=== PATIENT | male | born 1950 | race African-American/Black ===

== ENCOUNTER 2016-06-10 19:25 | Inpatient (IN) | payer MEDICAID ==
[~2016-06-10] VITALS: Ht 182.9 cm; Wt 81.6 kg
[~2016-06-10 19:25] MED LIST: UNOBMED
[2016-06-10] MEDS ORDERED: Ipratropium 0.02% Inh Soln 2.5ml UD HHN ONE (21:00)
[2016-06-10] MEDS ORDERED: PredniSONE 20mg tab ORAL ONE (21:00)
[2016-06-10] MEDS ORDERED: Albuterol ud Inhalation HHN ONE ×2 (21:00→23:15)
[2016-06-10] MEDS ORDERED: Cefepime 1gm vial ONE (21:23)
[2016-06-10 21:54] LABS: TROPONIN I < 0.30 ng/mL (<=0.30)
[2016-06-10 21:55] LABS: BASOPHILS % (AUTO) 2.1 % (0.0-2.0); EOSINOPHILS % (AUTO) 0.3 % (0.0-3.0); LYMPHOCYTES % (AUTO) 10.9 % (20.0-45.0); MEAN CORPUSCULAR HEMOGLOBIN 28.6 PG (27.0-31.0); MEAN CORPUSCULAR HGB CONC 30.5 G/DL (32.0-36.0); MEAN CORPUSCULAR VOLUME 94 FL (80-99); MEAN PLATELET VOLUME 7.8 FL (6.5-10.1); MONOCYTES % (AUTO) 9.5 % (1.0-10.0); NEUTROPHILS % (AUTO) 77.2 % (45.0-75.0); PLATELET COUNT 234 K/UL (150-450); RED BLOOD COUNT 4.83 M/UL (4.70-6.10); RED CELL DISTRIBUTION WIDTH 15.1 % (11.6-14.8)
[2016-06-10 22:09] LABS: ALANINE AMINOTRANSFERASE 18 U/L (3-41); ALBUMIN/GLOBULIN RATIO 0.9 (1.0-2.7); ANION GAP 13 (5-15); ASPARTATE AMINO TRANSFERASE 25 U/L (5-40); CALCIUM 9.4 mg/dL (8.6-10.2); CARBON DIOXIDE 29 mEQ/L (20-30); CHLORIDE 102 mEQ/L (98-107); CREATININE 1.3 mg/dL (0.7-1.2); GLOMERULAR FILTRATION RATE > 60 mL/min (>60); HEMOLYSIS 8; POTASSIUM 4.7 mEQ/L (3.4-4.9); SODIUM 144 mEQ/L (135-145); TOTAL PROTEIN 7.2 g/dL (6.6-8.7)
[2016-06-10 22:13] LABS: REFLEX LACTIC ACID YES OR NO YES
[2016-06-10 22:19] LABS: CKMB 2.3 ng/mL (< 6.7)
[2016-06-10 22:30] LABS: BILIRUBIN,DIRECT 1.1 mg/dL (0.1-0.3)
--- NOTE | 2016-06-10 22:59 | Emergency Room Report ---
History of Present Illness General Chief Complaint: Upper Respiratory Illness Source: Patient, EMS Present Illness HPI Patient has a history of COPD and CHF. He presents by EMS complaining of shortness of breath for the past day. He has had cough. He denies chest pain. He denies fever. He states he has chills. Denies abdominal pain. He has no other complaints. Allergies: Coded Allergies: No Known Allergies (Unverified , 09/20/15) Patient History Past Medical History: see triage record, DM, HTN, [place], CAD, CHF, COPD Social History: Denies: alcohol use, drug use, smoking Reviewed Nursing Documentation: PMH: Agreed, PSxH: Agreed Nursing Documentation-PMH Past Medical History: No History, Except For Hx Cardiac Problems: Yes - CHF Hx Hypertension: Yes Hx Pacemaker: No Hx Asthma: Yes Hx COPD: Yes Hx Diabetes: Yes Hx Cancer: No Hx Gastrointestinal Problems: No Hx Dialysis: No Hx Neurological Problems: No Hx Cerebrovascular Accident: No Hx Seizures: No Review of Systems All Other Systems: negative except mentioned in HPI Physical Exam Vital Signs Date Time Temp Pulse Resp B/P Pulse Ox O2 Delivery O2 Flow Rate FiO2 06/10/16 19:23 102.9 108 18 129/95 100 Non-Rebreather 15.0 06/10/16 21:10 100 Sp02 EP Interpretation: reviewed, normal General Appearance: no apparent distress, alert, GCS 15, non-toxic Head: normocephalic, atraumatic Eyes: bilateral eye PERRL, bilateral eye normal inspection ENT: hearing grossly normal, normal pharynx, no angioedema, normal voice Neck: full range of motion, supple/symm/no masses Respiratory: chest non-tender, wheezing, expiration Cardiovascular #1: regular rate, rhythm, no edema Gastrointestinal: normal bowel sounds, non tender, soft, non-distended, no guarding, no rebound Rectal: deferred Musculoskeletal: back normal, gait/station normal, normal range of motion, non- tender Neurologic: alert, oriented x3, responsive, motor strength/tone normal, sensory intact, speech normal Psychiatric: judgement/insight normal, memory normal, mood/affect normal, no suicidal/homicidal ideation Skin: normal color, no rash, warm/dry, well hydrated Medical Decision Making Diagnostic Impression: Primary Impression: Asthma exacerbation in COPD Additional Impressions: Fever Pneumonia ER Course This patient has severe COPD exacerbation. This patient is complicated he also has a history of congestive heart failure. Chest x-ray does not show pulmonary edema. Therefore, went down the COPD pathway. The patient was treated with albuterol and Atrovent nebulizers and prednisone. He is also given broad- spectrum antibiotics given a fever of 103. Patient was requiring oxygen. He is admitted to telemetry. Labs Test 06/10/16 21:09 06/10/16 21:45 06/10/16 22:30 Sodium Level 144 mEQ/L (135-145) Potassium Level 4.7 mEQ/L (3.4-4.9) Chloride Level 102 mEQ/L (98-107) Carbon Dioxide Level 29 mEQ/L (20-30) Anion Gap 13 (5-15) Blood Urea Nitrogen 33 mg/dL (7-23) Creatinine 1.3 mg/dL (0.7-1.2) Estimat Glomerular Filtration Rate > 60 mL/min (>60) Glucose Level 233 mg/dL (74-106) Calcium Level 9.4 mg/dL (8.6-10.2) Total Bilirubin 1.9 mg/dL (0.0-1.2) Direct Bilirubin 1.1 mg/dL (0.1-0.3) Aspartate Amino Transf (AST/SGOT) 25 U/L (5-40) Alanine Aminotransferase (ALT/SGPT) 18 U/L (3-41) Alkaline Phosphatase 275 U/L (40-129) Total Creatine Kinase 116 U/L (38-174) Creatine Kinase MB 2.3 ng/mL (< 6.7) Creatine Kinase MB Relative Index 1.9 Troponin I < 0.30 ng/mL (<=0.30) Total Protein 7.2 g/dL (6.6-8.7) Albumin 3.5 g/dL (3.5-5.2) Globulin 3.7 g/dL Albumin/Globulin Ratio 0.9 (1.0-2.7) White Blood Count 10.0 K/UL (4.8-10.8) Red Blood Count 4.83 M/UL (4.70-6.10) Hemoglobin 13.8 G/DL (14.2-18.0) Hematocrit 45.3 % (42.0-52.0) Mean Corpuscular Volume 94 FL (80-99) Mean Corpuscular Hemoglobin 28.6 PG (27.0-31.0) Mean Corpuscular Hemoglobin Concent 30.5 G/DL (32.0-36.0) Red Cell Distribution Width 15.1 % (11.6-14.8) Platelet Count 234 K/UL (150-450) Mean Platelet Volume 7.8 FL (6.5-10.1) Neutrophils (%) (Auto) 77.2 % (45.0-75.0) Lymphocytes (%) (Auto) 10.9 % (20.0-45.0) Monocytes (%) (Auto) 9.5 % (1.0-10.0) Eosinophils (%) (Auto) 0.3 % (0.0-3.0) Basophils (%) (Auto) 2.1 % (0.0-2.0) Lactic Acid Level 3.00 mmol/L (0.66-2.22) EKG Diagnostic Results Rate: normal Rhythm: NSR ST Segments: no acute changes Rhythm Strip Diag. Results EP Interpretation: yes Rate: 90's Rhythm: NSR, no PVC's, no ectopy Chest X-Ray Diagnostic Results EP Interpretation: Yes Findings: no consolidation, no effusion, no pneumothorax, no acute cardiopulmonary disease Number of Views: 1 Other Impression Cardiomegaly Last Vital Signs Date Time Temp Pulse Resp B/P Pulse Ox O2 Delivery O2 Flow Rate FiO2 06/10/16 21:22 113 21 100 Non-Rebreather 15.0 100 06/10/16 19:23 102.9 129/95 Disposition: ADMITTED INPATIENT Condition: Serious Referrals: [facility],REFERRING (PCP) NESTOR MAZARIEGOS D.O. Jun 10, 2016 22:59
[2016-06-10] MEDS ORDERED: Acetaminophen 500mg (ES) tab ORAL ONE (23:00)
[2016-06-10 23:15] VITALS: BP 156/113
[2016-06-10] MEDS ORDERED: Morphine Sulfate 2mg/ml Inj IVP PRN (23:15)
[2016-06-10] MEDS ORDERED: Nitroglycerin Subl 0.4mg tab (Bottle Of 25) SL PRN (23:15)
[2016-06-10] MEDS ORDERED: LORazepam Inj 2mg/ml 1ml IV PRN (23:15)
[2016-06-10] MEDS ORDERED: DuoNeb 0.5-3(2.5)mg/3ml neb HHN PRN (23:15)
[2016-06-10] MEDS ORDERED: Promethazine/Codeine 5ml UD ORAL PRN (23:15)
[2016-06-11 00:49] VITALS: BP 143/90
[2016-06-11] MEDS: Solu-MEDROL 125mg Inj IV SCH ×4 (01:11→17:48)
[2016-06-11 04:00] VITALS: BP 152/106
[2016-06-11] MEDS ORDERED: Labetalol 5mg/ml 20ml vial IV PRN (06:30)
[2016-06-11] MEDS ORDERED: NovoLOG Insulin Flexpen SUBQ SCH ×2 (06:30)
[2016-06-11] MEDS ORDERED: Enalaprilat 2.5mg/2ml Inj IV PRN ×2 (06:30→12:00)
[2016-06-11] MEDS: NovoLOG Insulin Flexpen SUBQ SCH ×4 (07:09→20:38)
[2016-06-11 08:00] VITALS: BP 134/101
[2016-06-11] MEDS ORDERED: Theophylline ER 100mg ORAL SCH (09:00)
[2016-06-11] MEDS: Heparin 5000 units/ml inj SUBQ SCH ×2 (09:37→20:36)
--- NOTE | 2016-06-11 09:43 | Diagnostic Imaging Report ---
Indications: Shortness of breath Technique: Portable AP chest Findings: Comparison: 11/22/15 Cardiac silhouette remains enlarged. Hazy opacity now noted in the/over right lung base, obscuring right costophrenic angle and portion of right hemidiaphragm. Left lung and pleura clear. Pulmonary vasculature within normal limits. IMPRESSION: Right basal opacity--atelectasis versus pneumonia with or without pleural effusion. Upright PA and lateral chest radiographs with better inspiratory effort and optimal technique recommended for more complete evaluation.. Stable cardiomegaly
--- NOTE | 2016-06-11 09:49 | History and Physical ---
History of Present Illness General Date patient seen: Jun 10, 2016 Reason for Hospitalization: Upper Respiratory Illness Present Illness HPI 66 year old male with hx of COPD and CHF, EF of 35% and pulmonary htn ( previous echo). He presents by EMS complaining of shortness of breath for the past day. He has had cough. He denies chest pain. He denies fever. He states he has chills. Denies abdominal pain. He has no other complaints. Allergies: Coded Allergies: No Known Allergies (Unverified , 09/20/15) Medication History Miscellaneous Medications Unable to Obtain Medications (Unable To Obtain Meds), Unknown Dose, (Reported) Patient History History Provided By: Patient Healthcare decision maker Resuscitation status Full Code Advanced Directive on File No Past Medical/Surgical History Past Medical/Surgical History: (1) Uncontrolled diabetes mellitus (2) Chronic kidney disease (3) Cocaine abuse Social History Social History: (1) Cocaine abuse Review of Systems All Other Systems: negative except mentioned in HPI Physical Exam General Appearance: WD/WN Lines, tubes and drains: peripheral HEENT: normocephalic, atraumatic Neck: non-tender, normal alignment Respiratory/Chest: chest wall non-tender, lungs clear Abdomen: normal bowel sounds, non tender Genitourinary/Rectal: normal genital exam Extremities: normal range of motion Skin Exam: cyanotic Last 24 Hour Vital Signs Date Time Temp Pulse Resp B/P Pulse Ox O2 Delivery O2 Flow Rate FiO2 06/11/16 07:53 101 19 Room Air 98 06/11/16 04:00 98.0 92 20 152/106 96 Nasal Cannula 3.0 06/11/16 04:00 97 06/11/16 00:49 97.4 95 28 143/90 100 Room Air 06/11/16 00:02 98.2 99 23 156/113 100 Nasal Cannula 3.0 32 06/11/16 00:00 97 06/10/16 23:30 32 06/10/16 23:30 101 23 100 Nasal Cannula 3.0 32 06/10/16 23:15 98.2 99 24 156/113 100 Nasal Cannula 3.0 06/10/16 22:05 113 21 Room Air 15.0 100 06/10/16 21:45 100.1 06/10/16 21:22 113 21 100 Non-Rebreather 15.0 100 06/10/16 21:10 110 20 100 Non-Rebreather 15.0 100 06/10/16 21:10 108 20 Non-Rebreather 15.0 100 06/10/16 21:10 100 06/10/16 19:23 102.9 108 18 129/95 100 Non-Rebreather 15.0 Laboratory Tests Test 06/10/16 21:09 06/10/16 21:45 06/10/16 22:30 Sodium Level 144 mEQ/L (135-145) Potassium Level 4.7 mEQ/L (3.4-4.9) Chloride Level 102 mEQ/L (98-107) Carbon Dioxide Level 29 mEQ/L (20-30) Anion Gap 13 (5-15) Blood Urea Nitrogen 33 mg/dL (7-23) H Creatinine 1.3 mg/dL (0.7-1.2) H Estimat Glomerular Filtration Rate > 60 mL/min (>60) Glucose Level 233 mg/dL (74-106) H Calcium Level 9.4 mg/dL (8.6-10.2) Total Bilirubin 1.9 mg/dL (0.0-1.2) H Direct Bilirubin 1.1 mg/dL (0.1-0.3) H Aspartate Amino Transf (AST/SGOT) 25 U/L (5-40) Alanine Aminotransferase (ALT/SGPT) 18 U/L (3-41) Alkaline Phosphatase 275 U/L (40-129) H Total Creatine Kinase 116 U/L (38-174) Creatine Kinase MB 2.3 ng/mL (< 6.7) Creatine Kinase MB Relative Index 1.9 Troponin I < 0.30 ng/mL (<=0.30) Total Protein 7.2 g/dL (6.6-8.7) Albumin 3.5 g/dL (3.5-5.2) Globulin 3.7 g/dL Albumin/Globulin Ratio 0.9 (1.0-2.7) L White Blood Count 10.0 K/UL (4.8-10.8) Red Blood Count 4.83 M/UL (4.70-6.10) Hemoglobin 13.8 G/DL (14.2-18.0) L Hematocrit 45.3 % (42.0-52.0) Mean Corpuscular Volume 94 FL (80-99) Mean Corpuscular Hemoglobin 28.6 PG (27.0-31.0) Mean Corpuscular Hemoglobin Concent 30.5 G/DL (32.0-36.0) L Red Cell Distribution Width 15.1 % (11.6-14.8) H Platelet Count 234 K/UL (150-450) Mean Platelet Volume 7.8 FL (6.5-10.1) Neutrophils (%) (Auto) 77.2 % (45.0-75.0) H Lymphocytes (%) (Auto) 10.9 % (20.0-45.0) L Monocytes (%) (Auto) 9.5 % (1.0-10.0) Eosinophils (%) (Auto) 0.3 % (0.0-3.0) Basophils (%) (Auto) 2.1 % (0.0-2.0) H Lactic Acid Level 3.00 mmol/L (0.66-2.22) H 2.70 mmol/L (0.66-2.22) H Height (Feet): 6 Height (Inches): 1.00 Weight (Pounds): 180 Medications Current Medications Medications (Trade) Dose Ordered Sig/Morteza Route PRN Reason Start Time Stop Time Status Last Admin Dose Admin Acetaminophen (Tylenol) 650 mg Q4H PRN ORAL fever 06/10/16 23:15 07/10/16 23:14 Albuterol/ Ipratropium (DuoNeb 0.5-3(2.5)mg/3ml) 3 ml Q4H PRN HHN dyspnea 06/10/16 23:15 06/15/16 23:14 Clonidine HCl (Catapres) 0.1 mg Q4H PRN ORAL sbp more than 160 06/10/16 23:15 07/10/16 23:14 Dextrose (Dextrose 50%) STAT PRN IV Hypoglycemia 06/11/16 06:30 07/11/16 06:29 Enalaprilat (Vasotec) 2.5 mg Q4H PRN IV sbp more than 200 06/11/16 06:30 07/11/16 06:29 Heparin Sodium (Porcine) (Heparin 5000 units/ml) 5,000 units EVERY 12 HOURS SUBQ 06/11/16 09:00 07/11/16 08:59 06/11/16 09:37 Hydralazine HCl (Apresoline) 20 mg Q4H PRN IV sbp more than 160 06/11/16 06:30 07/11/16 06:29 Insulin Aspart (NovoLOG) BEFORE MEALS AND HS SUBQ 06/11/16 07:30 07/11/16 07:29 06/11/16 07:09 Labetalol HCl (Normodyne) 20 mg Q1H PRN IV sbo more than 180 06/11/16 06:30 07/11/16 06:29 Lorazepam (Ativan 2mg/ml 1ml) 0.5 mg Q4H PRN IV For Anxiety 06/10/16 23:15 06/17/16 23:14 Methylprednisolone Sodium Succinate (Solu-MEDROL) 60 mg EVERY 6 HOURS IV 06/11/16 00:00 07/11/16 00:00 06/11/16 06:00 Morphine Sulfate (Morphine Sulfate) 2 mg Q4H PRN IVP severe pain 7-10 06/10/16 23:15 06/17/16 23:14 Nitroglycerin (Ntg) 0.4 mg Q5M X 3 DOSES PRN SL Prn Chest Pain 06/10/16 23:15 07/10/16 23:14 Ondansetron HCl (Zofran) 4 mg Q6H PRN IVP Nausea & Vomiting 06/10/16 23:15 07/10/16 23:14 Promethazine HCl/ Codeine (Phenergan with Codeine) 5 ml Q6H PRN ORAL cough 06/10/16 23:15 07/10/16 23:14 Temazepam (Restoril) 15 mg HSPRN PRN ORAL Insomnia 06/10/16 23:15 06/17/16 23:14 Theophylline (Jose-Dur) 100 mg EVERY 12 HOURS ORAL 06/11/16 09:00 07/11/16 08:59 UNV Assessment/Plan Problem List: (1) Asthma exacerbation in COPD ICD Codes: J44.1 - Chronic obstructive pulmonary disease with (acute) exacerbation; J45.901 - Unspecified asthma with (acute) exacerbation SNOMED: 240655666 (2) Severe systolic congestive heart failure ICD Codes: I50.20 - Unspecified systolic (congestive) heart failure SNOMED: 27882063, 901675189 (3) Pulmonary hypertension ICD Codes: I27.2 - Other secondary pulmonary hypertension SNOMED: 65950572 (4) Cocaine abuse ICD Codes: F14.10 - Cocaine abuse, uncomplicated SNOMED: 05621278 (5) Chronic kidney disease ICD Codes: N18.9 - Chronic kidney disease, unspecified SNOMED: 355389652 Assessment/Plan respiratory treatment Iv antibiotics IV steroids check sputum chest PT cardio evaluation KENY JIMÉNEZ Jun 11, 2016 09:49
--- NOTE | 2016-06-11 10:05 | Pulmonology Progress Note ---
Assessment/Plan Problems: (1) Asthma exacerbation in COPD (2) Severe systolic congestive heart failure (3) Pulmonary hypertension (4) Cocaine abuse (5) Chronic kidney disease Assessment/Plan respiratory treatment Iv antibiotics IV steroids check sputum chest PT cardio evaluation requested might go to med/surg Subjective ROS Limited/Unobtainable: No Interval Events: still short of breath Allergies: Coded Allergies: No Known Allergies (Unverified , 09/20/15) Objective Last 24 Hour Vital Signs Date Time Temp Pulse Resp B/P Pulse Ox O2 Delivery O2 Flow Rate FiO2 06/11/16 07:53 101 19 Room Air 98 06/11/16 04:00 98.0 92 20 152/106 96 Nasal Cannula 3.0 06/11/16 04:00 97 06/11/16 00:49 97.4 95 28 143/90 100 Room Air 06/11/16 00:02 98.2 99 23 156/113 100 Nasal Cannula 3.0 32 06/11/16 00:00 97 06/10/16 23:30 32 06/10/16 23:30 101 23 100 Nasal Cannula 3.0 32 06/10/16 23:15 98.2 99 24 156/113 100 Nasal Cannula 3.0 06/10/16 22:05 113 21 Room Air 15.0 100 06/10/16 21:45 100.1 06/10/16 21:22 113 21 100 Non-Rebreather 15.0 100 06/10/16 21:10 110 20 100 Non-Rebreather 15.0 100 06/10/16 21:10 108 20 Non-Rebreather 15.0 100 06/10/16 21:10 100 06/10/16 19:23 102.9 108 18 129/95 100 Non-Rebreather 15.0 General Appearance: WD/WN HEENT: normocephalic, atraumatic Respiratory/Chest: chest wall non-tender, lungs clear Cardiovascular: normal peripheral pulses, normal rate Abdomen: normal bowel sounds, soft, non tender Genitourinary: normal external genitalia Skin: no rash, no ulcers 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 Lymphatic: no neck adenopathy Laboratory Tests 06/10/16 21:09: Sodium Level 144, Potassium Level 4.7, Chloride Level 102, Carbon Dioxide Level 29, Anion Gap 13, Blood Urea Nitrogen 33H, Creatinine 1.3H, Estimat Glomerular Filtration Rate > 60, Glucose Level 233H, Calcium Level 9.4, Total Bilirubin 1.9H, Direct Bilirubin 1.1H, Aspartate Amino Transf (AST/SGOT) 25, Alanine Aminotransferase (ALT/SGPT) 18, Alkaline Phosphatase 275H, Total Creatine Kinase 116, Creatine Kinase MB 2.3, Creatine Kinase MB Relative Index 1.9, Troponin I < 0.30, Total Protein 7.2, Albumin 3.5, Globulin 3.7, Albumin/ Globulin Ratio 0.9L 06/10/16 21:45: White Blood Count 10.0, Red Blood Count 4.83, Hemoglobin 13.8L, Hematocrit 45.3 , Mean Corpuscular Volume 94, Mean Corpuscular Hemoglobin 28.6, Mean Corpuscular Hemoglobin Concent 30.5L, Red Cell Distribution Width 15.1H, Platelet Count 234, Mean Platelet Volume 7.8, Neutrophils (%) (Auto) 77.2H, Lymphocytes (%) (Auto) 10.9L, Monocytes (%) (Auto) 9.5, Eosinophils (%) (Auto) 0.3, Basophils (%) (Auto) 2.1H, Lactic Acid Level 3.00H 06/10/16 22:30: Lactic Acid Level 2.70H Current Medications Medications (Trade) Dose Ordered Sig/Morteza Route PRN Reason Start Time Stop Time Status Last Admin Dose Admin Acetaminophen (Tylenol) 650 mg Q4H PRN ORAL fever 06/10/16 23:15 07/10/16 23:14 Albuterol/ Ipratropium (DuoNeb 0.5-3(2.5)mg/3ml) 3 ml Q4H PRN HHN dyspnea 06/10/16 23:15 06/15/16 23:14 Clonidine HCl (Catapres) 0.1 mg Q4H PRN ORAL sbp more than 160 06/10/16 23:15 07/10/16 23:14 Dextrose (Dextrose 50%) STAT PRN IV Hypoglycemia 06/11/16 06:30 07/11/16 06:29 Enalaprilat (Vasotec) 2.5 mg Q4H PRN IV sbp more than 200 06/11/16 06:30 07/11/16 06:29 Heparin Sodium (Porcine) (Heparin 5000 units/ml) 5,000 units EVERY 12 HOURS SUBQ 06/11/16 09:00 07/11/16 08:59 06/11/16 09:37 Hydralazine HCl (Apresoline) 20 mg Q4H PRN IV sbp more than 160 06/11/16 06:30 07/11/16 06:29 Insulin Aspart (NovoLOG) BEFORE MEALS AND HS SUBQ 06/11/16 07:30 07/11/16 07:29 06/11/16 07:09 Labetalol HCl (Normodyne) 20 mg Q1H PRN IV sbo more than 180 06/11/16 06:30 07/11/16 06:29 Lorazepam (Ativan 2mg/ml 1ml) 0.5 mg Q4H PRN IV For Anxiety 06/10/16 23:15 06/17/16 23:14 Methylprednisolone Sodium Succinate (Solu-MEDROL) 60 mg EVERY 6 HOURS IV 06/11/16 00:00 07/11/16 00:00 06/11/16 06:00 Morphine Sulfate (Morphine Sulfate) 2 mg Q4H PRN IVP severe pain 7-10 06/10/16 23:15 06/17/16 23:14 Nitroglycerin (Ntg) 0.4 mg Q5M X 3 DOSES PRN SL Prn Chest Pain 06/10/16 23:15 07/10/16 23:14 Ondansetron HCl (Zofran) 4 mg Q6H PRN IVP Nausea & Vomiting 06/10/16 23:15 07/10/16 23:14 Promethazine HCl/ Codeine (Phenergan with Codeine) 5 ml Q6H PRN ORAL cough 06/10/16 23:15 07/10/16 23:14 Temazepam (Restoril) 15 mg HSPRN PRN ORAL Insomnia 06/10/16 23:15 06/17/16 23:14 Theophylline (Jose-Dur) 100 mg EVERY 12 HOURS ORAL 06/11/16 09:00 07/11/16 08:59 KENY DE JESUS Jun 11, 2016 10:05
[2016-06-11 12:00] VITALS: BP 161/120
[2016-06-11] MEDS: Theophylline ER 100mg ORAL SCH (13:28)
--- NOTE | 2016-06-11 14:42 | Consultation ---
Consult Note Consult Note ID CONSULT: Elissa# [id number] Assessment/Plan ASSESSMENT: 66 y/o male with: // COPD exacerbation r/o PNA - SCx pending - CXR 06/10: Right basal opacity--atelectasis versus pneumonia with or without pleural effusion. // Lactic acidosis - improved // Fever - improved, no leukocytosis, cultures pending ( on steroids ) // Isolated indirect hyperbilirubinemia // ICMO - trop(-) x1 - TTE 11/2015: EF 30-35%, grade 3 diastolic dysfunction, mild AR, mod TR, sev MR, pulmonary HTN // DM2 - HbA1c 14.8% ( 11/2015 ) // CKD3 // Negative MRSA, VRE screens // NKDA // Full Code PLAN: - resume empiric cefepime d# 1 - check influenza - taper steroids per pulm - f/u cultures - monitor CBC, temperatures - monitor BMP - monitor CXR Thanks! Will follow BELEM SLOAN Jun 11, 2016 14:42
--- NOTE | 2016-06-11 15:56 | Cardiology Progress Note ---
Assessment/Plan Assessment/Plan acute systolic heart failure copd MR pulm htn systemic htn non compliance with med renal insuf diuretics incease hasmukh i copd med trop adn bnp and ekg echo noted to review watch on sdu [id number] Objective Last 24 Hour Vital Signs Date Time Temp Pulse Resp B/P Pulse Ox O2 Delivery O2 Flow Rate FiO2 06/11/16 12:33 65 24 98 Nasal Cannula 3.0 32 06/11/16 12:33 32 06/11/16 12:33 64 18 98 Nasal Cannula 3.0 32 06/11/16 12:00 97.0 103 22 161/120 91 Nasal Cannula 3.0 06/11/16 12:00 104 06/11/16 08:00 108 06/11/16 08:00 97.0 101 25 134/101 98 Room Air 06/11/16 07:53 101 19 Room Air 98 06/11/16 04:00 98.0 92 20 152/106 96 Nasal Cannula 3.0 06/11/16 04:00 97 06/11/16 00:49 97.4 95 28 143/90 100 Room Air 06/11/16 00:02 98.2 99 23 156/113 100 Nasal Cannula 3.0 32 06/11/16 00:00 97 06/10/16 23:30 32 06/10/16 23:30 101 23 100 Nasal Cannula 3.0 32 06/10/16 23:15 98.2 99 24 156/113 100 Nasal Cannula 3.0 06/10/16 22:05 113 21 Room Air 15.0 100 06/10/16 21:45 100.1 06/10/16 21:22 113 21 100 Non-Rebreather 15.0 100 06/10/16 21:10 110 20 100 Non-Rebreather 15.0 100 06/10/16 21:10 108 20 Non-Rebreather 15.0 100 06/10/16 21:10 100 06/10/16 19:23 102.9 108 18 129/95 100 Non-Rebreather 15.0 Intake and Output 06/10/16 06/11/16 19:00 07:00 # Voids 2 Laboratory Tests Test 06/10/16 21:09 06/10/16 21:45 06/10/16 22:30 Sodium Level 144 mEQ/L (135-145) Potassium Level 4.7 mEQ/L (3.4-4.9) Chloride Level 102 mEQ/L (98-107) Carbon Dioxide Level 29 mEQ/L (20-30) Anion Gap 13 (5-15) Blood Urea Nitrogen 33 mg/dL (7-23) H Creatinine 1.3 mg/dL (0.7-1.2) H Estimat Glomerular Filtration Rate > 60 mL/min (>60) Glucose Level 233 mg/dL (74-106) H Calcium Level 9.4 mg/dL (8.6-10.2) Total Bilirubin 1.9 mg/dL (0.0-1.2) H Direct Bilirubin 1.1 mg/dL (0.1-0.3) H Aspartate Amino Transf (AST/SGOT) 25 U/L (5-40) Alanine Aminotransferase (ALT/SGPT) 18 U/L (3-41) Alkaline Phosphatase 275 U/L (40-129) H Total Creatine Kinase 116 U/L (38-174) Creatine Kinase MB 2.3 ng/mL (< 6.7) Creatine Kinase MB Relative Index 1.9 Troponin I < 0.30 ng/mL (<=0.30) Total Protein 7.2 g/dL (6.6-8.7) Albumin 3.5 g/dL (3.5-5.2) Globulin 3.7 g/dL Albumin/Globulin Ratio 0.9 (1.0-2.7) L White Blood Count 10.0 K/UL (4.8-10.8) Red Blood Count 4.83 M/UL (4.70-6.10) Hemoglobin 13.8 G/DL (14.2-18.0) L Hematocrit 45.3 % (42.0-52.0) Mean Corpuscular Volume 94 FL (80-99) Mean Corpuscular Hemoglobin 28.6 PG (27.0-31.0) Mean Corpuscular Hemoglobin Concent 30.5 G/DL (32.0-36.0) L Red Cell Distribution Width 15.1 % (11.6-14.8) H Platelet Count 234 K/UL (150-450) Mean Platelet Volume 7.8 FL (6.5-10.1) Neutrophils (%) (Auto) 77.2 % (45.0-75.0) H Lymphocytes (%) (Auto) 10.9 % (20.0-45.0) L Monocytes (%) (Auto) 9.5 % (1.0-10.0) Eosinophils (%) (Auto) 0.3 % (0.0-3.0) Basophils (%) (Auto) 2.1 % (0.0-2.0) H Lactic Acid Level 3.00 mmol/L (0.66-2.22) H 2.70 mmol/L (0.66-2.22) H JULIOCESAR GONSALEZ Jun 11, 2016 15:56
[2016-06-11 16:00] VITALS: BP 159/119
[2016-06-11 17:32] LABS: ABG BASE EXCESS -4.2; ABG PCO2 39.9 mmHg (35.0-45.0)
[2016-06-11 17:33] LABS: ABG ALLEN TEST POSITIVE
--- NOTE | 2016-06-11 17:33 | Cardiology Report ---
APPROVED REPORT EXAM: Two-dimensional and M-mode echocardiogram with Doppler and color Doppler. INDICATION Left ventricular function M-Mode DIMENSIONS LVDd6.4 (3.5-5.6cm) PWd1.1 (0.7-1.1cm) IVSs0.9 cm LVDs4.9 (2.5-4.0cm) PWs1.7 cm Mild left ventricular enlargement. Severe global left ventricular hypokinesis. Worse in basal posterior and mid inferior. Left ventricular ejection fraction estimated to be less than 25%. No evidence of left ventricular hypertrophy. Large posterior pleural effusion. Moderate anterior pericardial effusion. Mild bi-atrial and right ventricular enlargement by 2D. Focal aortic valve sclerosis with adequate cusp excursion Mildly thickened mitral valve leaflets with normal excursion. Mitral annulus and aortic root calcification. Pulmonic valve is well visualized. Normal tricuspid valve structure. IVC dilated at 3.1cm with no physiologic collapse. RA pressure of 20mmHg. A color flow and spectral Doppler study was performed and revealed: Mild aortic regurgitation. Severe mitral regurgitation. Left ventricular diastolic dysfunction not obtainable due to A-FIB. Moderate to moderte tricuspid regurgitation. Tricuspid systolic velocities suggests peak right ventricular systolic pressure of 44 mmHg Consistent with mild pulmonary hypertension. Pulmonic regurgitation present.
--- NOTE | 2016-06-11 17:39 | Cardiology Report ---
APPROVED REPORT EKG Measurement Heart [id number] Normal sinus rhythm Possible Left atrial enlargement Left axis deviation Low voltage QRS Inferior infarct, age undetermined Cannot rule out Anterior infarct, age undetermined Abnormal ECG
[2016-06-11 20:00] VITALS: BP 143/110
--- NOTE | 2016-06-11 20:17 | Consultation ---
DATE OF CONSULTATION: 06/11/2016 INFECTIOUS DISEASE CONSULTATION REQUESTING PHYSICIAN: Ирина Thurston M.D. REASON FOR CONSULTATION: Fever. HISTORY OF PRESENT ILLNESS: This is a 66-year-old male with a history of COPD and ischemic cardiomyopathy and uncontrolled diabetes, admitted on 06/10/2016 with cough and shortness of breath. The patient reports coughing x2 weeks. Denies sick contacts or recent travel. Chest x-ray shows right basilar opacity and/or atelectasis versus pneumonia with or without pleural effusion. The patient unable to provide sputum sample. Evidence of fever at 102.9 degrees. No leukocytosis, but left shift. Lactic acidosis is improving. Troponin is negative x1. Blood cultures are pending. The patient has been started on Solu-Medrol. He also received cefepime in the emergency room. PAST MEDICAL HISTORY: 1. COPD. 2. Ischemic cardiomyopathy with ejection fraction of 30% to 35%. 3. Mild aortic regurgitation. 4. Moderate tricuspid regurgitation. 5. Severe mitral regurgitation. 6. Severe pulmonary hypertension. 7. Grade 3 diastolic dysfunction. 8. Chronic kidney disease, stage 3. 9. Hypertension. 10. Uncontrolled diabetes, hemoglobin A1c of 14.8%. MEDICATIONS: 1. Status post cefepime x1. 2. Solu-Medrol. 3. Lisinopril. 4. Theophylline. 5. Heparin. ALLERGIES: No known drug allergies. SOCIAL HISTORY: History of cocaine abuse and tobacco abuse. FAMILY HISTORY: Noncontributory. REVIEW OF SYSTEMS: As per history of present illness. Ten systems reviewed. All pertinent positives and negatives noted. PHYSICAL EXAMINATION: VITAL SIGNS: Maximum temperature 102.9 degrees, blood pressure 134/101, heart rate 101, respiratory rate 20, and saturating 98% on two liters nasal cannula. GENERAL: No apparent distress. Nontoxic appearing. PULMONARY: Coarse breath sounds bilaterally. CARDIOVASCULAR: Tachycardic. No murmurs. ABDOMEN: Bowel sounds present. Soft, nondistended, and nontender. EXTREMITIES: No edema. SKIN: No rash. NEUROLOGICAL: Alert and oriented x3. Nonfocal. LABORATORY AND DIAGNOSTIC DATA: White blood cell count 10 with left shift, hemoglobin 13.8, and platelets 234,000. Sodium 144, potassium 4.7, chloride 102, bicarbonate 29, BUN 33, and creatinine 1.3. Lactic acid 3 decreased to 2.7. AST 25, ALT 18 and alkaline phosphatase 375. Total bilirubin 1.9. Direct bilirubin 1.1. Albumin 3.5. Troponin negative x1. Microbiology, 1. On 06/10/2016, blood culture pending. 2. On 06/10/2016, sputum culture pending. Imaging, 3. On 06/10/2016, chest x-ray right basilar opacity atelectasis versus pneumonia with or without pleural effusion. 4. On 06/10/2016, echocardiogram pending. ASSESSMENT: 1. Chronic obstructive pulmonary disease exacerbation, rule out pneumonia. Sputum culture is pending. Chest x-ray, as above. 2. Lactic acidosis, improved. 3. Fever, improved and no leukocytosis. Cultures are pending. He is on steroids. 4. Isolated indirect hyperbilirubinemia. 5. Ischemic cardiomyopathy. Troponin negative x1. Most recent echocardiogram in 2016 showed an ejection fraction of 30% to 35%, grade 3 diastolic dysfunction, mild aortic regurgitation, moderate tricuspid regurgitation, severe mitral regurgitation and pulmonary hypertension. 6. Uncontrolled diabetes type 2 with a hemoglobin A1c of 14.8% in 2016. 7. Chronic kidney disease, stage 3. 8. Negative methicillin-resistant Staphylococcus aureus and vancomycin-resistant Enterococcus screens. 9. No known drug allergies. 10. Full Code. PLAN: 1. Resume empiric cefepime day #1. 2. Check influenza screen. 3. Taper steroids per Pulmonary. 4. Follow up cultures. 5. Monitor CBC and temperatures. 6. Monitor BMP. 7. Monitor chest x-ray. Thank you. We will follow. Stephen Back M.D. DR: PETE JOB#: [id number] CC: Jessi Sampson M.D. Arash Alborzi, M.D
[2016-06-11] MEDS: Lisinopril 20mg tab ORAL SCH (20:34)
--- NOTE | 2016-06-11 22:07 | Consultation ---
DATE OF CONSULTATION: 06/11/2016 CARDIAC CONSULTATION REFERRING PHYSICIAN: Ирина Thurston M.D. REASON FOR REFERRAL: Congestive heart failure. HISTORY OF PRESENT ILLNESS: This gentleman is a 66-year-old gentleman with history of multiple medical problems. He apparently presented to the hospital because of shortness of breath. [employer] [facility] Technician run sheet indicates the patient was at home being assessed, treated by paramedics for shortness of breath of 20 minutes. The patient was just discharged from the [facility] this morning, but was complaining of shortness of breath all day. It has been reported that he has not been compliant with his medication. O2 saturation on room air was only 86% and up to 100% by 15 liters of oxygen, and was noted to have bibasilar crackles, history of CHF, presented with edema according to the terra cotta setter run sheet. He was recently hospitalized and discharged here with COPD as well as acute on chronic congestive heart failure with cardiomyopathy, severe pulmonary hypertension, renal insufficiency diabetes mellitus, and possible cocaine use. The patient complains of shortness of breath and has to sleep in a sitting position. He does not have any PND. He does not does not have any dizziness or lightheadedness on standing. He denies absolutely any pain, pressure, tightness, heaviness in his chest and no palpitations. He denies any allergies to medications. SOCIAL HISTORY: He denies smoking, alcohol or drugs despite the fact that previously he has had cocaine positive drug screen. REVIEW OF SYSTEMS: Gastrointestinal: He complains of heartburn. Genitourinary: He denies. Pulmonary: He does have shortness of breath and coughing. Constitutional: He denies. Neurologic: He denies, although he becomes very difficult to question at that time. PHYSICAL EXAMINATION: GENERAL: The patient is an elderly gentleman and appears to be uneasy, cannot find a comfortable position, but he does move around. He appears short of breath. NECK: Supple. LUNGS: Decreased breath sounds are noted bilaterally with some crackles on the right side. CARDIAC: Regular rhythm. No heaves or thrills. ABDOMEN: Soft and nontender. Positive bowel sounds. EXTREMITIES: There is edema of the lower extremities. NEUROLOGIC: He is awake, alert, and responsive, but he appears somewhat confused. LABORATORY AND DIAGNOSTIC DATA: White count of 10, hemoglobin 13.8, and platelet count of 234,000. His sodium is 144, potassium 4.7, chloride 102, bicarbonate 29, BUN 32, creatinine 1.3 and a glucose of 233. Lactic acid of 3 and 2.7. Total bilirubin of 1.9. Troponin less than 0.1 on one occasion. His toxicology screen was previously positive back in November 2015 and has not been repeated. I am sure no EKGs are available for me to review. The telemetry data shows sinus rhythm and sinus tachycardia and an echocardiogram just been performed shows ejection fraction 20%-25%, severe global hypokinesis, severe mitral regurgitation, pulmonary systolic pressure of 44. Chest x-ray shows cardiomegaly, by the radiologist reading it appears to show a right basilar opacity atelectasis versus pneumonia with or without pleural effusion, stable cardiomegaly being documented. Chest x-ray was performed on November 2015, six months earlier and really does not look any significantly different. The BNP has not been drawn during this hospitalization yet. ASSESSMENT: 1. Chronic obstructive pulmonary disease. 2. History of congestive heart failure, acute systolic on chronic systolic heart failure. 3. Mitral regurgitation. 4. Pulmonary hypertension. PLAN: Dr. Thurston, this patient was seen in cardiac consultation. He appears to be short of breath on evaluation. I would consider checking a set of cardiac enzymes, again an EKG and a BNP and he should be on some medications for his heart failure. He is not reporting known to be noncompliant with medications. His blood pressure is anywhere between 134/101 to 161/120. He has been given some SINDI inhibitors, the dose of which would need to be increased and addition of other medications for blood pressure control is important. Beta-blockers may be an issue in light of his COPD and diuretics would be administered to help with the heart failure control as well and of course COPD treatment underlying as per yourself. Nolberto Aden M.D. DR: CARTER JOB#: [id number] CC:
[2016-06-12] VITALS: BP 143/110
[2016-06-12 01:00] VITALS: BP 131/99
[2016-06-12] MEDS: Solu-MEDROL 125mg Inj IV SCH ×4 (01:23→11:41)
[2016-06-12 04:00] VITALS: BP 135/95
[2016-06-12] MEDS: NovoLOG Insulin Flexpen SUBQ SCH ×2 (06:04→11:30)
[2016-06-12 08:00] VITALS: BP 121/67
[2016-06-12] MEDS ORDERED: Sodium Bicarbonate 8.4% 50ml Inj IV ONE (08:00)
[2016-06-12] MEDS ORDERED: Heparin 2000 units/Ns 1000ml INJ ONE (08:00)
[2016-06-12] MEDS ORDERED: Lidocaine 1% Plain 30 ml INJ ONE (08:00)
[2016-06-12] MEDS: Lisinopril 20mg tab ORAL SCH (08:57)
[2016-06-12] MEDS: Theophylline ER 100mg ORAL SCH (08:57)
[2016-06-12] MEDS: Heparin 5000 units/ml inj SUBQ SCH (08:57)
[2016-06-12] MEDS ORDERED: FUROSEMIDE40 MG ORAL (11:46)
--- NOTE | 2016-06-12 11:54 | Pulmonology Progress Note ---
Assessment/Plan Problems: (1) Asthma exacerbation in COPD (2) Severe systolic congestive heart failure (3) Pulmonary hypertension (4) Cocaine abuse (5) Chronic kidney disease Assessment/Plan respiratory treatment Iv antibiotics IV steroids check sputum chest PT cardio evaluation requested might go to med/surg refusing all treatment will dc home with oral meds refusing to go to a assisted living Subjective ROS Limited/Unobtainable: No Interval Events: refusing all treatment Allergies: Coded Allergies: No Known Allergies (Unverified , 09/20/15) Objective Last 24 Hour Vital Signs Date Time Temp Pulse Resp B/P Pulse Ox O2 Delivery O2 Flow Rate FiO2 06/12/16 08:57 120/56 06/12/16 08:00 98.1 102 20 121/67 95 Room Air 06/12/16 08:00 100 06/12/16 04:00 98.4 101 24 135/95 94 Room Air 06/12/16 00:00 97.3 103 16 143/110 97 Nasal Cannula 2.0 06/12/16 00:00 104 06/11/16 21:32 103 19 Room Air 06/11/16 20:34 143/110 06/11/16 20:00 97.3 103 16 143/110 97 Nasal Cannula 2.0 06/11/16 20:00 104 06/11/16 16:00 104 06/11/16 16:00 96.8 105 16 159/119 98 Nasal Cannula 3.0 06/11/16 12:33 65 24 98 Nasal Cannula 3.0 32 06/11/16 12:33 32 06/11/16 12:33 64 18 98 Nasal Cannula 3.0 32 06/11/16 12:00 97.0 103 22 161/120 91 Nasal Cannula 3.0 06/11/16 12:00 104 Intake and Output 06/11/16 06/12/16 19:00 07:00 Intake Total 900 ml 280 ml Output Total 600 ml Balance 300 ml 280 ml Intake Oral 850 ml 280 ml IV Total 50 ml Output Urine Total 600 ml # Voids 4 # Bowel Movements 4 General Appearance: WD/WN HEENT: normocephalic Respiratory/Chest: chest wall non-tender, lungs clear Cardiovascular: normal peripheral pulses, regular rhythm Abdomen: normal bowel sounds, soft, non tender Neurologic/Psychiatric: osteopathy doctor II-XII grossly normal Laboratory Tests 06/11/16 17:20: Arterial Blood pH 7.342L, Arterial Blood Partial Pressure CO2 39.9, Arterial Blood Partial Pressure O2 37.2*L, Arterial Blood HCO3 21.1L, Arterial Blood Oxygen Saturation 63.2L, Arterial Blood Base Excess -4.2, Umesh Test Positive Current Medications Medications (Trade) Dose Ordered Sig/Morteza Route PRN Reason Start Time Stop Time Status Last Admin Dose Admin Acetaminophen (Tylenol) 650 mg Q4H PRN ORAL fever 06/10/16 23:15 07/10/16 23:14 Albuterol/ Ipratropium (DuoNeb 0.5-3(2.5)mg/3ml) 3 ml Q4H PRN HHN dyspnea 06/10/16 23:15 06/15/16 23:14 06/11/16 12:33 Cefepime HCl/ Dextrose (Maxipime/D5W 50ml) 50 ml @ 100 mls/hr Q12HR@0600,1800 IVPB 06/11/16 18:00 06/18/16 17:59 06/11/16 17:49 Clonidine HCl (Catapres) 0.1 mg Q4H PRN ORAL sbp more than 160 06/10/16 23:15 07/10/16 23:14 Dextrose (Dextrose 50%) STAT PRN IV Hypoglycemia 06/11/16 06:30 07/11/16 06:29 Enalaprilat 2.5 mg 2.5 mg Q4H PRN IV sbp more than 180 06/11/16 12:00 07/11/16 11:59 Furosemide (Lasix) 20 mg EVERY 12 HOURS IV 06/11/16 16:30 07/11/16 16:29 06/11/16 21:22 Heparin Sodium (Porcine) (Heparin 5000 units/ml) 5,000 units EVERY 12 HOURS SUBQ 06/11/16 09:00 07/11/16 08:59 06/11/16 20:36 Insulin Aspart (NovoLOG) BEFORE MEALS AND HS SUBQ 06/11/16 07:30 07/11/16 07:29 06/11/16 20:38 Lisinopril (Prinivil) 20 mg Q12HR ORAL 06/11/16 21:00 07/11/16 20:59 06/11/16 20:34 Lorazepam (Ativan 2mg/ml 1ml) 0.5 mg Q4H PRN IV For Anxiety 06/10/16 23:15 06/17/16 23:14 Methylprednisolone Sodium Succinate (Solu-MEDROL) 60 mg EVERY 6 HOURS IV 06/11/16 00:00 07/11/16 00:00 06/11/16 17:48 Morphine Sulfate (Morphine Sulfate) 2 mg Q4H PRN IVP severe pain 7-10 06/10/16 23:15 06/17/16 23:14 Nitroglycerin (Ntg) 0.4 mg Q5M X 3 DOSES PRN SL Prn Chest Pain 06/10/16 23:15 07/10/16 23:14 Ondansetron HCl (Zofran) 4 mg Q6H PRN IVP Nausea & Vomiting 06/10/16 23:15 07/10/16 23:14 Promethazine HCl/ Codeine (Phenergan with Codeine) 5 ml Q6H PRN ORAL cough 06/10/16 23:15 07/10/16 23:14 Temazepam (Restoril) 15 mg HSPRN PRN ORAL Insomnia 06/10/16 23:15 06/17/16 23:14 Theophylline (Jose-Dur) 100 mg DAILY ORAL 06/11/16 14:00 07/11/16 13:59 06/11/16 13:28 KENY JIMÉNEZ Jun 12, 2016 11:54
[2016-06-12 12:00] VITALS: BP 129/61
[2016-06-12] MEDS ORDERED: Lisinopril 20mg tab ORAL SCH (12:00)
[2016-06-12] MEDS ORDERED: NS 55ml IV ONE (13:59)
--- NOTE | 2016-06-12 15:41 | Infectious Diseases Prog Note ---
Assessment/Plan Assessment/Plan ASSESSMENT: 66 y/o male with: // COPD exacerbation r/o PNA - SCx pending - CXR 06/10: Right basal opacity--atelectasis versus pneumonia with or without pleural effusion. // Lactic acidosis - improved // Fever - resolved, no leukocytosis, cultures NGTD ( on steroids ) // Large left posterior pleural effusion // Mod anterior pericardial effusion // Isolated indirect hyperbilirubinemia // ICMO - trop(-) x1 - TTE: EF 25%, mild AR, pulmonary HTN, mod-sev TR, sev MR // DM2 - HbA1c 14.8% ( 11/2015 ) // CKD3 // Negative MRSA, VRE screens // NKDA // Full Code PLAN: - ok to DC on PO azithromycin x4 days. Will continue cefepime d# 2 while still inpt - check influenza if pt allows - taper steroids per pulm - f/u cultures - monitor CBC, temperatures - monitor BMP - monitor CXR Subjective Allergies: Coded Allergies: No Known Allergies (Unverified , 09/20/15) Subjective fever resolved refusing treatments, for possible DC Objective Vital Signs Last 24 Hour Vital Signs Date Time Temp Pulse Resp B/P Pulse Ox O2 Delivery O2 Flow Rate FiO2 06/12/16 12:00 97.9 99 20 129/61 95 Room Air 06/12/16 08:57 120/56 06/12/16 08:00 98.1 102 20 121/67 95 Room Air 06/12/16 08:00 100 06/12/16 06:35 101 20 Room Air 06/12/16 04:00 98.4 101 24 135/95 94 Room Air 06/12/16 00:00 97.3 103 16 143/110 97 Nasal Cannula 2.0 06/12/16 00:00 104 06/11/16 21:32 103 19 Room Air 06/11/16 20:34 143/110 06/11/16 20:00 97.3 103 16 143/110 97 Nasal Cannula 2.0 06/11/16 20:00 104 06/11/16 16:00 104 06/11/16 16:00 96.8 105 16 159/119 98 Nasal Cannula 3.0 Height (Feet): 6 Height (Inches): 1.00 Weight (Pounds): 180 General Appearance: no acute distress Respiratory/Chest: no respiratory distress Cardiovascular: normal rate, regular rhythm Abdomen: normal bowel sounds, soft, non tender, non distended Laboratory Tests Test 06/11/16 17:20 Arterial Blood pH 7.342 (7.350-7.450) Arterial Blood Partial Pressure CO2 39.9 mmHg (35.0-45.0) Arterial Blood Partial Pressure O2 37.2 mmHg (75.0-100.0) Arterial Blood HCO3 21.1 mmol/L (22.0-26.0) L Arterial Blood Oxygen Saturation 63.2 % (92.0-98.0) L Arterial Blood Base Excess -4.2 Umesh Test Positive Current Medications Medications (Trade) Dose Ordered Sig/Morteza Route PRN Reason Start Time Stop Time Status Last Admin Dose Admin Acetaminophen (Tylenol) 650 mg Q4H PRN ORAL fever 06/10/16 23:15 07/10/16 23:14 Albuterol/ Ipratropium (DuoNeb 0.5-3(2.5)mg/3ml) 3 ml Q4H PRN HHN dyspnea 06/10/16 23:15 06/15/16 23:14 06/11/16 12:33 Cefepime HCl/ Dextrose (Maxipime/D5W 50ml) 50 ml @ 100 mls/hr Q12HR@0600,1800 IVPB 06/11/16 18:00 06/18/16 17:59 06/11/16 17:49 Clonidine HCl (Catapres) 0.1 mg Q4H PRN ORAL sbp more than 160 06/10/16 23:15 07/10/16 23:14 Dextrose (Dextrose 50%) STAT PRN IV Hypoglycemia 06/11/16 06:30 07/11/16 06:29 Enalaprilat 2.5 mg 2.5 mg Q4H PRN IV sbp more than 180 06/11/16 12:00 07/11/16 11:59 Furosemide (Lasix) 20 mg EVERY 12 HOURS IV 06/11/16 16:30 07/11/16 16:29 06/11/16 21:22 Heparin Sodium (Porcine) (Heparin 5000 units/ml) 5,000 units EVERY 12 HOURS SUBQ 06/11/16 09:00 07/11/16 08:59 06/11/16 20:36 Insulin Aspart (NovoLOG) BEFORE MEALS AND HS SUBQ 06/11/16 07:30 07/11/16 07:29 06/11/16 20:38 Lisinopril (Prinivil) 20 mg Q12HR ORAL 06/11/16 21:00 07/11/16 20:59 06/11/16 20:34 Lorazepam (Ativan 2mg/ml 1ml) 0.5 mg Q4H PRN IV For Anxiety 06/10/16 23:15 06/17/16 23:14 Methylprednisolone Sodium Succinate (Solu-MEDROL) 60 mg EVERY 6 HOURS IV 06/11/16 00:00 07/11/16 00:00 06/11/16 17:48 Morphine Sulfate (Morphine Sulfate) 2 mg Q4H PRN IVP severe pain 7-10 06/10/16 23:15 06/17/16 23:14 Nitroglycerin (Ntg) 0.4 mg Q5M X 3 DOSES PRN SL Prn Chest Pain 06/10/16 23:15 07/10/16 23:14 Ondansetron HCl (Zofran) 4 mg Q6H PRN IVP Nausea & Vomiting 06/10/16 23:15 07/10/16 23:14 Promethazine HCl/ Codeine (Phenergan with Codeine) 5 ml Q6H PRN ORAL cough 06/10/16 23:15 07/10/16 23:14 Temazepam (Restoril) 15 mg HSPRN PRN ORAL Insomnia 06/10/16 23:15 06/17/16 23:14 Theophylline (Jose-Dur) 100 mg DAILY ORAL 06/11/16 14:00 07/11/16 13:59 06/11/16 13:28 BELEM SLOAN Jun 12, 2016 15:41
--- NOTE | 2016-06-13 17:13 | Discharge Summary ---
Discharge Summary Hospital Course Date of Admission Jun 10, 2016 at 21:45 Date of Discharge Jun 12, 2016 at 14:00 Admitting Diagnosis COPD exacerbation HPI Burton Mcdaniel is a 66 year old male who was admitted on Jun 10, 2016 at 21:45 for Chronic Obstructive Pulmonary Disease,Exacerbation Hospital Course [id number] Discharge Discharge Disposition Patient was discharged to home Discharge Diagnoses: Brittanie Wing NP Jun 13, 2016 17:13
--- NOTE | 2016-06-14 00:57 | Discharge Summary 2 SIG ---
DATE OF ADMISSION: 06/10/2016 DATE OF DISCHARGE: 06/12/2016 CONSULTANTS: 1. Stephen Back M.D. 2. Nolberto Aden M.D. BRIEF HOSPITAL COURSE: The patient is a 66-year-old male with history of COPD and CHF, ejection fraction of 35% and pulmonary hypertension on prior echocardiogram, presented to ED, brought in by EMS complaining of shortness of breath with cough. He was given respiratory treatments and IV steroids, and O2 therapy. Dr. Back was consulted. The patient reported coughing for two weeks. He denies sick contacts or recent travel. Chest x-ray showed right basilar opacity and atelectasis versus pneumonia with pleural effusion. The patient was unable to provide a sputum sample. He was also febrile at 102.9 degrees and was given empiric cefepime. Dr. Aden was consulted for evaluation of congestive heart failure. The patient was recently discharged from [facility] and had a previous admission that was positive for cocaine in urine drug screen. He is reported to be noncompliant with his medications. He was given diuretics, SINDI inhibitors was increased. Troponin was negative. Echocardiogram showed ejection fraction less than 25% with severe global left ventricular hypokinesis and mild pulmonary hypertension. The patient was eventually discharged home. FINAL DIAGNOSES: 1. Acute asthma exacerbation. 2. Acute chronic obstructive pulmonary disease exacerbation. 3. Acute on chronic systolic congestive heart failure. 4. Pulmonary hypertension. 5. Cocaine abuse. 6. Pleural effusion. 7. Isolated indirect hyperbilirubinemia. 8. Diabetes type 2, uncontrolled. 9. Chronic kidney disease, stage 3. 10. Mitral regurgitation. 11. Noncompliance with medication. Ирина Thurston M.D. I have been assigned to dictate discharge summary on this account and I was not involved in the patient's management. Brittanie Wing N.P. DR: JON JOB#: [id number] CC: KRISTIN
[2016-08-05] MEDS ORDERED: NOVOLOG100 UNIT/3 SUBQ (07:57)
== END 2016-06-12 14:00 | disposition home or self-care (01) | DRG 140 ==
LOC: EDBD 19:25 → EMR 20:35 → 2W 21:45 → EDBEDREQ 22:57 → EMR 06-11 00:03 → 2W 06-11 22:00
DX: J44.1 Chronic obstructive pulmonary disease with (acute) exacerbation (principal); I50.23 Acute on chronic systolic (congestive) heart failure; I27.2 Other secondary pulmonary hypertension; E11.22 Type 2 diabetes mellitus with diabetic chronic kidney disease; J45.901 Unspecified asthma with (acute) exacerbation; E11.65 Type 2 diabetes mellitus with hyperglycemia; F14.10 Cocaine abuse, uncomplicated; N18.9 Chronic kidney disease, unspecified; I13.0 Hypertensive heart and chronic kidney disease with heart failure and stage 1 through stage 4 chronic kidney disease, or unspecified chronic kidney disease; I25.10 Atherosclerotic heart disease of native coronary artery without angina pectoris; I08.3 Combined rheumatic disorders of mitral, aortic and tricuspid valves; N18.3 Chronic kidney disease, stage 3 (moderate); Z91.14 Patient's other noncompliance with medication regimen; I25.5 Ischemic cardiomyopathy; I25.2 Old myocardial infarction
CPT/HCPCS: 36415; 36600; 71010; 80053; 82248; 82550; 82553; 82803; 82962; 83605; 84484; 85025; 93005; 93306; 94640; 94664; J1815; J7620

== ENCOUNTER 2016-07-31 19:10 | Inpatient (IN) | payer MEDICAID ==
[~2016-07-31] VITALS: Ht 177.8 cm; Wt 98.4 kg
[~2016-07-31 19:10] MED LIST changes: +FUROSEMIDE40 MG ORAL
[2016-07-31 19:18] VITALS: BP 128/90
--- NOTE | 2016-07-31 20:03 | Emergency Room Report ---
History of Present Illness General Chief Complaint: Chest Pain Source: Medical Record Present Illness HPI 66 YO male presents to the emergency department complaining of 10 out of 10 in severity chest pain in addition to bilateral lower extremity swelling and pain. Patient denies history of swelling in the lower extremities. Patient denies calf pain. Patient states her extremities have swollen over the course of 3 days. Patient reports intermittent shortness of breath x3 weeks. he states he has a history of congestive heart failure. he denies nausea, vomiting , fevers, chills. Pt denies abdominal pain. Allergies: Coded Allergies: No Known Allergies (Unverified , 09/20/15) Patient History Past Medical History: see triage record Past Surgical History: none Pertinent Family History: none Social History: Reports: drug use Immunizations: UTD Reviewed Nursing Documentation: PMH: Agreed, PSxH: Agreed Nursing Documentation-PMH Hx Cardiac Problems: Yes - CHF Hx Hypertension: Yes Hx Pacemaker: No Hx Asthma: Yes Hx COPD: Yes Hx Diabetes: Yes Hx Cancer: No Hx Gastrointestinal Problems: No Hx Dialysis: No Hx Neurological Problems: No Hx Cerebrovascular Accident: No Hx Seizures: No Review of Systems All Other Systems: negative except mentioned in HPI Physical Exam Vital Signs Date Time Temp Pulse Resp B/P Pulse Ox O2 Delivery O2 Flow Rate FiO2 07/31/16 19:08 96 16 128/90 98 Room Air Sp02 EP Interpretation: reviewed, normal General Appearance: no apparent distress, alert, GCS 15, non-toxic Head: normocephalic, atraumatic Eyes: bilateral eye PERRL, bilateral eye normal inspection ENT: hearing grossly normal, normal pharynx, no angioedema, normal voice Neck: full range of motion, supple/symm/no masses Respiratory: chest non-tender, lungs clear, normal breath sounds, speaking full sentences Cardiovascular #1: regular rate, rhythm, normal capillary refill, edema - bilateral 1+ pitting edema, with erythema, shiny appearance to LE and abscense of hair consistent with venous stasis. Gastrointestinal: normal bowel sounds, non tender, soft, no guarding, no rebound Rectal: deferred Genitourinary: normal inspection, no CVA tenderness Musculoskeletal: back normal, normal range of motion, no calf tenderness, swelling - to the bilateral feet and ankles with pitting edema, TTP to the feet bilaterally Neurologic: alert, oriented x3, responsive, motor strength/tone normal, sensory intact, speech normal Psychiatric: judgement/insight normal, memory normal, mood/affect normal, no suicidal/homicidal ideation Skin: no rash, warm/dry, well hydrated Lymphatic: no adenopathy Medical Decision Making PA Attestation Dr. Tobar is my supervising Physician whom patient management has been discussed with. Diagnostic Impression: Primary Impression: CHINEDU (acute kidney injury) Additional Impression: Venous stasis dermatitis of both lower extremities ER Course 66 YO male presents to the emergency department complaining of 10 out 10 in severity chest pain in addition to bilateral lower extremity swelling and pain. Patient denies history of swelling in the lower extremities. Patient denies calf pain. Patient states her extremities have swollen over the course of 3 days. Patient reports intermittent shortness of breath x3 weeks. he states he has a history of congestive heart failure. he denies nausea, vomiting , fevers, chills. Ddx considered but are not limited to SD, pneumonia, contusion, costochondritis , PE, ACS, DVT, cellulitis, PAD, CHF, Shoulder strain, Chest wall contusion. aortic dissection. Vital signs: are WNL, pt. is afebrile H&PE are most consistent with venous stasis dermatitis, possible acute on chronic CHF. Lungs are CTA Bilaterally ORDERS: - EK BPM NSR interpreted by Dr. Tobar -CBC: anemia, no leukocytosis -CMP: Pt. has elevated BUN and CR consistent with CHINEDU -Pro-[place]: [place] [address] , consistent with CHF, after review of pt. previous BNP results there have been visits with higher values than today's -CK-MB: elevated at: 9.4 Total CK : 475 -Troponins: WNL less than 0.3 CXR: no acute cardio-pulmonary findings per preliminary read in the ED by Dr. Tobar ED INTERVENTIONS: -6mg IV Morphine - PT. placed on cardiac monitoring. -Pt habitually requesting lasix, d/w pt. that his kidney function has declined and lasix will worsen this. DISPOSITION: at this time pt. will be admitted to Dr. Thurston for CHINEDU. Dr. Thurston agreed to admit the pt. and to continue pt. care management. Endorsed at 10:37 PM Labs Test 07/31/16 20:27 White Blood Count 5.4 K/UL (4.8-10.8) Red Blood Count 4.45 M/UL (4.70-6.10) Hemoglobin 13.0 G/DL (14.2-18.0) Hematocrit 41.8 % (42.0-52.0) Mean Corpuscular Volume 94 FL (80-99) Mean Corpuscular Hemoglobin 29.3 PG (27.0-31.0) Mean Corpuscular Hemoglobin Concent 31.1 G/DL (32.0-36.0) Red Cell Distribution Width 16.0 % (11.6-14.8) Platelet Count 187 K/UL (150-450) Mean Platelet Volume 8.0 FL (6.5-10.1) Neutrophils (%) (Auto) 65.7 % (45.0-75.0) Lymphocytes (%) (Auto) 19.6 % (20.0-45.0) Monocytes (%) (Auto) 11.9 % (1.0-10.0) Eosinophils (%) (Auto) 0.4 % (0.0-3.0) Basophils (%) (Auto) 2.4 % (0.0-2.0) Sodium Level 139 mEQ/L (135-145) Potassium Level 4.7 mEQ/L (3.4-4.9) Chloride Level 95 mEQ/L (98-107) Carbon Dioxide Level 23 mEQ/L (20-30) Anion Gap 21 (5-15) Blood Urea Nitrogen 63 mg/dL (7-23) Creatinine 2.3 mg/dL (0.7-1.2) Estimat Glomerular Filtration Rate 34.8 mL/min (>60) Glucose Level 140 mg/dL (74-106) Calcium Level 9.4 mg/dL (8.6-10.2) Total Bilirubin 4.0 mg/dL (0.0-1.2) Direct Bilirubin 2.9 mg/dL (0.1-0.3) Aspartate Amino Transf (AST/SGOT) 52 U/L (5-40) Alanine Aminotransferase (ALT/SGPT) 26 U/L (3-41) Alkaline Phosphatase 167 U/L (40-129) Total Creatine Kinase 425 U/L (38-174) Creatine Kinase MB 9.4 ng/mL (< 6.7) Creatine Kinase MB Relative Index 2.2 Troponin I < 0.30 ng/mL (<=0.30) Pro-B-Type Natriuretic Peptide 3975 pg/mL (0-125) Total Protein 7.2 g/dL (6.6-8.7) Albumin 3.6 g/dL (3.5-5.2) Globulin 3.6 g/dL Albumin/Globulin Ratio 1.0 (1.0-2.7) EKG Diagnostic Results EP Interpretation: Interpreted By Dr. Tobar Rate: normal - 97 BPM Rhythm: NSR ST Segments: no acute changes ASA given to the pt in ED: No PA Scribe Text reviewed and interpreted by Dr. Tobar Last Vital Signs Date Time Temp Pulse Resp B/P Pulse Ox O2 Delivery O2 Flow Rate FiO2 07/31/16 19:08 96 16 128/90 98 Room Air Disposition: ADMITTED INPATIENT Swati Lira Jul 31, 2016 20:03
[2016-07-31 20:42] LABS: BASOPHILS % (AUTO) 2.4 % (0.0-2.0); EOSINOPHILS % (AUTO) 0.4 % (0.0-3.0); LYMPHOCYTES % (AUTO) 19.6 % (20.0-45.0); MEAN CORPUSCULAR HEMOGLOBIN 29.3 PG (27.0-31.0); MEAN CORPUSCULAR HGB CONC 31.1 G/DL (32.0-36.0); MEAN CORPUSCULAR VOLUME 94 FL (80-99); MONOCYTES % (AUTO) 11.9 % (1.0-10.0); NEUTROPHILS % (AUTO) 65.7 % (45.0-75.0); PLATELET COUNT 187 K/UL (150-450); RED BLOOD COUNT 4.45 M/UL (4.70-6.10); WHITE BLOOD COUNT 5.4 K/UL (4.8-10.8)
[2016-07-31 21:05] LABS: TROPONIN I < 0.30 ng/mL (<=0.30)
[2016-07-31 21:13] LABS: CALCIUM 9.4 mg/dL (8.6-10.2); CREATININE 2.3 mg/dL (0.7-1.2); GLOMERULAR FILTRATION RATE 34.8 mL/min (>60); POTASSIUM 4.7 mEQ/L (3.4-4.9); TOTAL PROTEIN 7.2 g/dL (6.6-8.7)
[2016-07-31] MEDS ORDERED: Morphine Sulfate 4mg/ml Inj IM ONE (21:15)
[2016-07-31 21:23] LABS: CKMB 9.4 ng/mL (< 6.7)
[2016-07-31] MEDS ORDERED: Morphine Sulfate 4mg/ml Inj IVP ONE (21:30)
[2016-07-31 21:34] LABS: BILIRUBIN,DIRECT 2.9 mg/dL (0.1-0.3)
[2016-07-31 21:35] VITALS: BP 134/96
[2016-08-01] VITALS: BP 128/98
[2016-08-01 02:00] VITALS: BP 133/95
[2016-08-01] MEDS ORDERED: UNOBMED (02:06)
[2016-08-01] MEDS ORDERED: Enalaprilat 2.5mg/2ml Inj IV PRN (07:15)
[2016-08-01] MEDS ORDERED: Heparin 25,000u/D5W 500ml 500 ML IV SCH (07:15)
[2016-08-01] MEDS ORDERED: Miralax 17gm pkt ORAL PRN (07:15)
[2016-08-01] MEDS ORDERED: DuoNeb 0.5-3(2.5)mg/3ml neb HHN PRN (07:15)
[2016-08-01] MEDS ORDERED: Morphine Sulfate 2mg/ml Inj IVP PRN (07:15)
[2016-08-01] MEDS ORDERED: Diltiazem 25mg/5ml IV PRN (07:15)
[2016-08-01] MEDS ORDERED: Nitroglycerin Subl 0.4mg tab (Bottle Of 25) SL PRN (07:15)
[2016-08-01] MEDS ORDERED: Ketorolac 30mg Inj IV PRN (07:15)
[2016-08-01 08:16] VITALS: BP 107/78
[2016-08-01 09:15] LABS: ALANINE AMINOTRANSFERASE 28 U/L (3-41); ALBUMIN/GLOBULIN RATIO 0.8 (1.0-2.7); ANION GAP 18 (5-15); ASPARTATE AMINO TRANSFERASE 51 U/L (5-40); CALCIUM 9.5 mg/dL (8.6-10.2); CARBON DIOXIDE 25 mEQ/L (20-30); CHLORIDE 96 mEQ/L (98-107); CREATININE 2.2 mg/dL (0.7-1.2); GLOMERULAR FILTRATION RATE 36.6 mL/min (>60); HEMOLYSIS 2; MAGNESIUM 2.2 mg/dL (1.7-2.5); PHOSPHORUS 4.6 mg/dL (2.5-4.8); POTASSIUM 4.3 mEQ/L (3.4-4.9); SODIUM 139 mEQ/L (135-145); TOTAL PROTEIN 7.6 g/dL (6.6-8.7); URIC ACID 11.7 mg/dL (3.0-7.5)
[2016-08-01 09:19] LABS: TROPONIN I < 0.30 ng/mL (<=0.30)
[2016-08-01] MEDS: Aspirin Baby 81mg ORAL SCH (09:23)
[2016-08-01 09:27] LABS: FREE T3 1.8 pg/mL (2.3-4.2)
[2016-08-01 09:38] LABS: BILIRUBIN,DIRECT 2.6 mg/dL (0.1-0.3)
[2016-08-01 10:49] LABS: APPEARANCE,URINE CLEAR; KETONES,URINE NEGATIVE (NEGATIVE); LEUKOCYTE ESTERASE ,URINE NEGATIVE (NEGATIVE); NITRITE,URINE NEGATIVE (NEGATIVE); PH,URINE 5 (4.5-8.0); PROTEIN,URINE 2+ (NEGATIVE); UROBILINOGEN,URINE 1 MG/DL (0.0-1.0)
--- NOTE | 2016-08-01 10:58 | Consultation ---
Consult Note Consult Note asked to eval at the request of Dr Thurston for renal failure- 66 YO male presents to the emergency department complaining of 10 out of 10 in severity chest pain in addition to bilateral lower extremity swelling and pain. Patient denies history of swelling in the lower extremities. Patient denies calf pain. Patient states her extremities have swollen over the course of 3 days. Patient reports intermittent shortness of breath x3 weeks. he states he has a history of congestive heart failure. he denies nausea, vomiting , fevers, chills. Pt denies PH: - Acute on chronic CHF exacerbation -. Cardiomyopathy (EF 30-35% on echo today) - Severe pulmonary HTN - COPD -. Hyperglycemia - Cocaine use Patient interviewed, examined- data reviewed- PE are most consistent with venous stasis dermatitis, possible acute on chronic CHF. Lungs are CTA Bilaterally . Assessment/Plan status: Renal failure, Multi factorial, mainly PreRenal picture due to Cardiomyopathy and documented EjFx of 30% in November 2015 Leg swelling and cellulitis also goes along with CHF , Other conditions; Sever Pulm HTN COPD DM Cocaine abuse High Bili Plan: Optimize cardiac and pulm status- Monitor renal parameters- Urine studies Urine Tox screen per orders MIKE MITCHELL Aug 01, 2016 10:57
[2016-08-01] MEDS: NovoLOG Insulin Flexpen SUBQ SCH ×3 (11:15→21:33)
[2016-08-01 11:48] LABS: BACTERIA,URINE FEW /HPF; MUCUS,URINE FEW /LPF (NONE/OCC); RBC,URINE 0-2 /HPF (0 - 0); SQUAMOUS EPITHELIAL CELL,UR OCCASIONAL /LPF (NONE/OCC); WBC,URINE 0-2 /HPF (0 - 0)
[2016-08-01 11:59] LABS: ICTOTEST NEGATIVE
[2016-08-01 12:07] VITALS: BP 144/109
--- NOTE | 2016-08-01 13:36 | Diagnostic Imaging Report ---
Indication: Chest Pain Comparison: 06/10/16 A single view chest radiograph was obtained. Findings: No definite infiltrate or pulmonary vascular congestion identified. The heart is enlarged. The aorta is mildly enlarged consistent with atherosclerotic vascular disease. The bones are osteopenic. Impression: No acute disease
--- NOTE | 2016-08-01 14:31 | History and Physical ---
History of Present Illness General Date patient seen: Aug 01, 2016 Reason for Hospitalization: Chest Pain Present Illness HPI 66 year old male with pmhx of severe cardiomyopathy wit EF of 20% recently at [facility] presented to the emergency department complaining of 10 out of 10 in severity chest pain in addition to bilateral lower extremity swelling and pain. Patient states her extremities have swollen over the course of 3 days. Patient reports intermittent shortness of breath x3 weeks. Pt's urine was positive for Cocaine. Allergies: Coded Allergies: No Known Allergies (Unverified , 09/20/15) Medication History Scheduled Furosemide* (Lasix*), 40 MG ORAL DAILY Miscellaneous Medications Unable to Obtain Medications (Unable To Obtain Meds), Unknown Dose, (Reported) Unable to Obtain Medications (Unable To Obtain Meds), (Reported) Patient History Healthcare decision maker Resuscitation status Full Code Advanced Directive on File No Past Medical/Surgical History Past Medical/Surgical History: (1) Severe systolic congestive heart failure (2) Pulmonary hypertension (3) Cocaine abuse Review of Systems All Other Systems: negative except mentioned in HPI Physical Exam General Appearance: WD/WN Lines, tubes and drains: peripheral, PICC HEENT: normocephalic Neck: non-tender, normal alignment Cardiovascular/Chest: normal peripheral pulses Abdomen: normal bowel sounds Last 24 Hour Vital Signs Date Time Temp Pulse Resp B/P Pulse Ox O2 Delivery O2 Flow Rate FiO2 08/01/16 12:07 97.0 99 18 144/109 96 Room Air 08/01/16 08:16 97.0 96 18 107/78 97 Room Air 08/01/16 08:00 98 08/01/16 04:42 99 08/01/16 02:30 98.0 95 17 133/95 100 Room Air 08/01/16 02:00 98.0 95 17 133/95 100 Room Air 08/01/16 00:00 98 21 128/98 98 Room Air 07/31/16 21:35 97.2 97 20 134/96 99 Room Air 07/31/16 19:18 16 128/90 98 Room Air 07/31/16 19:18 96 16 Room Air 07/31/16 19:08 96 16 128/90 98 Room Air Intake and Output 07/31/16 08/01/16 19:00 07:00 # Voids 1 Laboratory Tests Test 07/31/16 20:27 08/01/16 08:30 08/01/16 09:35 White Blood Count 5.4 K/UL (4.8-10.8) Red Blood Count 4.45 M/UL (4.70-6.10) L Hemoglobin 13.0 G/DL (14.2-18.0) L Hematocrit 41.8 % (42.0-52.0) L Mean Corpuscular Volume 94 FL (80-99) Mean Corpuscular Hemoglobin 29.3 PG (27.0-31.0) Mean Corpuscular Hemoglobin Concent 31.1 G/DL (32.0-36.0) L Red Cell Distribution Width 16.0 % (11.6-14.8) H Platelet Count 187 K/UL (150-450) Mean Platelet Volume 8.0 FL (6.5-10.1) Neutrophils (%) (Auto) 65.7 % (45.0-75.0) Lymphocytes (%) (Auto) 19.6 % (20.0-45.0) L Monocytes (%) (Auto) 11.9 % (1.0-10.0) H Eosinophils (%) (Auto) 0.4 % (0.0-3.0) Basophils (%) (Auto) 2.4 % (0.0-2.0) H Sodium Level 139 mEQ/L (135-145) 139 mEQ/L (135-145) Potassium Level 4.7 mEQ/L (3.4-4.9) 4.3 mEQ/L (3.4-4.9) Chloride Level 95 mEQ/L (98-107) L 96 mEQ/L (98-107) L Carbon Dioxide Level 23 mEQ/L (20-30) 25 mEQ/L (20-30) Anion Gap 21 (5-15) H 18 (5-15) H Blood Urea Nitrogen 63 mg/dL (7-23) H 61 mg/dL (7-23) H Creatinine 2.3 mg/dL (0.7-1.2) H 2.2 mg/dL (0.7-1.2) H Estimat Glomerular Filtration Rate 34.8 mL/min (>60) 36.6 mL/min (>60) Glucose Level 140 mg/dL (74-106) H 112 mg/dL (74-106) H Calcium Level 9.4 mg/dL (8.6-10.2) 9.5 mg/dL (8.6-10.2) Total Bilirubin 4.0 mg/dL (0.0-1.2) H 4.1 mg/dL (0.0-1.2) H Direct Bilirubin 2.9 mg/dL (0.1-0.3) H 2.6 mg/dL (0.1-0.3) H Aspartate Amino Transf (AST/SGOT) 52 U/L (5-40) H 51 U/L (5-40) H Alanine Aminotransferase (ALT/SGPT) 26 U/L (3-41) 28 U/L (3-41) Alkaline Phosphatase 167 U/L (40-129) H 161 U/L (40-129) H Total Creatine Kinase 425 U/L (38-174) H 274 U/L (38-174) H Creatine Kinase MB 9.4 ng/mL (< 6.7) H Creatine Kinase MB Relative Index 2.2 Troponin I < 0.30 ng/mL (<=0.30) < 0.30 ng/mL (<=0.30) Pro-B-Type Natriuretic Peptide 3975 pg/mL (0-125) H Total Protein 7.2 g/dL (6.6-8.7) 7.6 g/dL (6.6-8.7) Albumin 3.6 g/dL (3.5-5.2) 3.4 g/dL (3.5-5.2) L Globulin 3.6 g/dL 4.2 g/dL Albumin/Globulin Ratio 1.0 (1.0-2.7) 0.8 (1.0-2.7) L Plasma/Serum Osmolality Pending Uric Acid 11.7 mg/dL (3.0-7.5) H Phosphorus Level 4.6 mg/dL (2.5-4.8) Magnesium Level 2.2 mg/dL (1.7-2.5) Thyroid Stimulating Hormone (TSH) 4.620 uIU/mL (0.300-4.500) Free Thyroxine 1.41 ng/dL (0.86-1.85) Free Triiodothyronine 1.8 pg/mL (2.3-4.2) L Cortisol Pending Urine Color Yellow Urine Appearance Clear Urine pH 5 (4.5-8.0) Urine Specific [place] 1.020 (1.005-1.035) Urine Protein 2+ (NEGATIVE) H Urine Glucose (UA) Negative (NEGATIVE) Urine Ketones Negative (NEGATIVE) Urine Occult Blood Negative (NEGATIVE) Urine Nitrite Negative (NEGATIVE) Urine Bilirubin 1+ (NEGATIVE) H Urine Ictotest Negative Urine Urobilinogen 1 MG/DL (0.0-1.0) H Urine Leukocyte Esterase Negative (NEGATIVE) Urine RBC 0-2 /HPF (0 - 0) H Urine WBC 0-2 /HPF (0 - 0) Urine Squamous Epithelial Cells Occasional /LPF Urine Bacteria Few /HPF (NONE) Urine Mucus Few /LPF (NONE/OCC) H Urine Eosinophils None seen Urine Osmolality Pending Urine Random Sodium 17 mmol/L Urine Random Chloride 33 mmol/L Urine Potassium Timed 46 mmol/L Urine Opiates Screen Positive (NEGATIVE) H Urine Barbiturates Screen Negative (NEGATIVE) Phencyclidine (PCP) Screen Negative (NEGATIVE) Urine Amphetamines Screen Negative (NEGATIVE) Urine Benzodiazepines Screen Negative (NEGATIVE) Urine Cocaine Screen Positive (NEGATIVE) H Urine Marijuana (THC) Screen Negative (NEGATIVE) Height (Feet): 5 Height (Inches): 10.00 Weight (Pounds): 222 Medications Current Medications Medications (Trade) Dose Ordered Sig/Morteza Route PRN Reason Start Time Stop Time Status Last Admin Dose Admin Acetaminophen (Tylenol) 650 mg Q4H PRN ORAL FEVER 08/01/16 07:15 08/31/16 07:14 Albuterol/ Ipratropium (DuoNeb 0.5-3(2.5)mg/3ml) 3 ml EVERY 4 HOURS PRN HHN Shortness of Breath 08/01/16 07:15 08/06/16 07:14 Aspirin (ASA) 162 mg DAILY ORAL 08/01/16 09:00 08/31/16 08:59 08/01/16 09:23 Dextrose (Dextrose 50%) STAT PRN IV Hypoglycemia 08/01/16 07:15 08/31/16 07:14 Diltiazem HCl (Cardizem) 10 mg EVERY HOUR PRN IV heart rate more than 120, 08/01/16 07:15 08/31/16 07:14 Insulin Aspart (NovoLOG) BEFORE MEALS AND HS SUBQ 08/01/16 11:30 08/31/16 11:29 08/01/16 11:15 Morphine Sulfate (Morphine Sulfate) 2 mg EVERY 4 HOURS PRN IVP severe Pain (Pain Scale 7-10) 08/01/16 07:15 08/08/16 07:14 Nitroglycerin (Ntg) 0.4 mg Q5M PRN SL Prn Chest Pain 08/01/16 07:15 08/31/16 07:14 Ondansetron HCl (Zofran) 4 mg Q6H PRN IVP Nausea & Vomiting 08/01/16 07:15 08/31/16 07:14 Pantoprazole (Protonix) 40 mg BID ORAL 08/01/16 18:00 08/31/16 17:59 Polyethylene Glycol (Miralax) 17 gm DAILYPRN PRN ORAL Constipation 08/01/16 07:15 08/31/16 07:14 Temazepam (Restoril) 15 mg HSPRN PRN ORAL Insomnia 08/01/16 07:15 08/08/16 07:14 Assessment/Plan Problem List: (1) Chest pain ICD Codes: R07.9 - Chest pain, unspecified SNOMED: 11512742 Qualifiers: Qualified Codes: R07.9 - Chest pain, unspecified (2) Severe systolic congestive heart failure ICD Codes: I50.20 - Unspecified systolic (congestive) heart failure SNOMED: 12665975, 726547863 (3) Chronic kidney disease ICD Codes: N18.9 - Chronic kidney disease, unspecified SNOMED: 904163183 (4) Venous stasis dermatitis of both lower extremities ICD Codes: I83.11 - Varicose veins of right lower extremity with inflammation; I83.12 - Varicose veins of left lower extremity with inflammation SNOMED: 16967897 (5) Cocaine abuse ICD Codes: F14.10 - Cocaine abuse, uncomplicated SNOMED: 92947974 Assessment/Plan serial ekg, troponin cardiology evaluation diuretics recent echo showed EF of 25% KENY JIMÉNEZ Aug 01, 2016 14:31
--- NOTE | 2016-08-01 15:48 | Diagnostic Imaging Report ---
Indication:Elevated Bun and Creatinine. Technique: Grayscale and duplex Doppler imaging of the kidneys performed. Comparison: None Findings: The kidneys are echogenic. There is no hydronephrosis. Urinary bladder is unremarkable. There is a small amount of ascites noted within the pelvis. IVC is not demonstrated. The left kidney measures between 11 and 12 cm. The right kidney between 12 and 13 cm. Impression: Medical renal disease. Ascites
[2016-08-01 16:00] VITALS: BP 144/97
[2016-08-01 20:00] VITALS: BP 131/89
[2016-08-01] MEDS: Heparin 5000 units/ml inj SUBQ SCH (21:31)
[2016-08-02 00:07] VITALS: BP 137/70
[2016-08-02 04:07] VITALS: BP 140/69
[2016-08-02] MEDS: NovoLOG Insulin Flexpen SUBQ SCH ×2 (06:16→13:08)
[2016-08-02 08:08] LABS: CORTISOL LC 20.7 ug/dL (.)
[2016-08-02 08:22] VITALS: BP 128/103
[2016-08-02 08:58] LABS: BASOPHILS % (AUTO) 1.4 % (0.0-2.0); EOSINOPHILS % (AUTO) 0.8 % (0.0-3.0); LYMPHOCYTES % (AUTO) 22.6 % (20.0-45.0); MEAN CORPUSCULAR HEMOGLOBIN 29.1 PG (27.0-31.0); MEAN CORPUSCULAR HGB CONC 31.8 G/DL (32.0-36.0); MEAN CORPUSCULAR VOLUME 92 FL (80-99); MEAN PLATELET VOLUME 7.8 FL (6.5-10.1); MONOCYTES % (AUTO) 12.7 % (1.0-10.0); NEUTROPHILS % (AUTO) 62.5 % (45.0-75.0); PLATELET COUNT 241 K/UL (150-450); RED BLOOD COUNT 4.83 M/UL (4.70-6.10); RED CELL DISTRIBUTION WIDTH 16.8 % (11.6-14.8); WHITE BLOOD COUNT 5.2 K/UL (4.8-10.8)
[2016-08-02 09:10] LABS: INR 1.5 (0.9-1.1); PROTHROMBIN TIME 15.1 SEC (9.30-11.50)
[2016-08-02 09:18] LABS: TROPONIN I < 0.30 ng/mL (<=0.30)
[2016-08-02 09:22] LABS: PHOSPHORUS 3.5 mg/dL (2.5-4.8); URIC ACID 12.6 mg/dL (3.0-7.5)
[2016-08-02 09:23] LABS: ALBUMIN/GLOBULIN RATIO 0.8 (1.0-2.7); CALCIUM 9.2 mg/dL (8.6-10.2); CHOLESTEROL/HDL RATIO 7.6 (3.3-4.4); CRP QUANT 2.7 mg/dL (< 0.5); GLOMERULAR FILTRATION RATE 40.8 mL/min (>60); POTASSIUM 3.9 mEQ/L (3.4-4.9)
[2016-08-02 09:27] LABS: THYROID STIMULATING HORMONE 2.62 uIU/mL (0.300-4.500)
[2016-08-02 09:38] LABS: BILIRUBIN,DIRECT 2.1 mg/dL (0.1-0.3)
[2016-08-02 09:40] LABS: HEMOGLOBIN A1C 9.9 % (< 6.0)
[2016-08-02] MEDS: Aspirin Baby 81mg ORAL SCH (10:20)
[2016-08-02] MEDS: Heparin 5000 units/ml inj SUBQ SCH (10:21)
[2016-08-02 12:00] VITALS: BP 120/75
--- NOTE | 2016-08-02 12:47 | General Progress Note ---
Assessment/Plan Status: stable - from renal stand Status Narrative Cr 2.3 to 2.0 Assessment/Plan Status: Renal failure, Multi factorial, mainly PreRenal picture due to Cardiomyopathy and documented EjFx of 30% in November 2015 Leg swelling and cellulitis also goes along with CHF , Other conditions; Sever Pulm HTN COPD DM Cocaine abuse High Bili Plan: Optimize cardiac and pulm status- Monitor renal parameters- Urine studies Urine Tox screen positive per consultants per orders Subjective ROS Limited/Unobtainable: No Constitutional: Reports: malaise Allergies: Coded Allergies: No Known Allergies (Unverified , 09/20/15) Objective Last 24 Hour Vital Signs Date Time Temp Pulse Resp B/P Pulse Ox O2 Delivery O2 Flow Rate FiO2 08/02/16 12:00 97.0 88 20 120/75 96 Room Air 08/02/16 10:20 104 128/103 08/02/16 08:22 97.2 104 20 128/103 97 Room Air 08/02/16 08:00 105 08/02/16 07:30 104 18 Room Air 21 08/02/16 04:07 98.7 88 20 140/69 95 Room Air 08/02/16 04:00 101 08/02/16 00:07 98.8 86 20 137/70 96 Room Air 08/02/16 00:00 99 08/01/16 23:52 102 16 Room Air 21 08/01/16 20:00 97.5 101 19 131/89 98 Room Air 08/01/16 20:00 99 08/01/16 16:00 97 08/01/16 16:00 97.4 103 19 144/97 98 Room Air Intake and Output 08/01/16 08/02/16 19:00 07:00 Intake Total 240 ml 300 ml Output Total 300 ml 900 ml Balance -60 ml -600 ml Intake Oral 240 ml 300 ml Output Urine Total 300 ml 900 ml # Voids 2 Laboratory Tests 08/02/16 06:15: White Blood Count 5.2, Red Blood Count 4.83, Hemoglobin 14.1L, Hematocrit 44.3, Mean Corpuscular Volume 92, Mean Corpuscular Hemoglobin 29.1, Mean Corpuscular Hemoglobin Concent 31.8L, Red Cell Distribution Width 16.8H, Platelet Count 241 , Mean Platelet Volume 7.8, Neutrophils (%) (Auto) 62.5, Lymphocytes (%) (Auto) 22.6, Monocytes (%) (Auto) 12.7H, Eosinophils (%) (Auto) 0.8, Basophils (%) ( Auto) 1.4, Prothrombin Time 15.1H, Prothromb Time International Ratio 1.5H, Activated Partial Thromboplast Time 27, Sodium Level 144, Potassium Level 3.9, Chloride Level 101, Carbon Dioxide Level 23, Anion Gap 20H, Blood Urea Nitrogen 56H, Creatinine 2.0H, Estimat Glomerular Filtration Rate 40.8, Glucose Level 103 , Hemoglobin A1c 9.9H, Uric Acid 12.6H, Calcium Level 9.2, Phosphorus Level 3.5 , Magnesium Level 2.0, Total Bilirubin 3.4H, Direct Bilirubin 2.1H, Gamma Glutamyl Transpeptidase 349H, Aspartate Amino Transf (AST/SGOT) 45H, Alanine Aminotransferase (ALT/SGPT) 24, Alkaline Phosphatase 172H, Total Creatine Kinase 137, Troponin I < 0.30, C-Reactive Protein, Quantitative 2.7H, Pro-B- Type Natriuretic Peptide 3073H, Total Protein 7.0, Albumin 3.2L, Globulin 3.8, Albumin/Globulin Ratio 0.8L, Triglycerides Level 77, Cholesterol Level 137, LDL Cholesterol 104H, HDL Cholesterol 18, Cholesterol/HDL Ratio 7.6H, Thyroid Stimulating Hormone (TSH) 2.620 Height (Feet): 5 Height (Inches): 10.00 Weight (Pounds): 217 General Appearance: no apparent distress Cardiovascular: tachycardia Respiratory/Chest: decreased breath sounds Abdomen: distended Edema: 1+ Arm (L), 1+ Arm (R), 1+ Leg (L), 1+ Leg (R), 1+ Pedal (L), 1+ Pedal ( R), 1+ Generalized MIKE MITCHELL Aug 02, 2016 12:47
--- NOTE | 2016-08-02 13:25 | Cardiology Report ---
APPROVED REPORT EXAM: Two-dimensional and M-mode echocardiogram with Doppler and color Doppler. INDICATION Left Ventricular Function M-Mode DIMENSIONS IVSd0.9 (0.7-1.1cm)Left Atrium (MM)5.6 (1.6-4.0cm) LVDd6.5 (3.5-5.6cm)Aortic Root2.8 (2.0-3.7cm) PWd0.9 (0.7-1.1cm)Aortic Cusp Exc.1.9 (1.5-2.0cm) LVDs5.5 (2.5-4.0cm) PWs1.2 cm Mild left ventricular enlargement. Global left ventricular hypokinesis, septal dyskinesis. Left ventricular ejection fraction estimated to be less than 20 %. No evidence of ventricular hypertrophy. Small pericardial effusion. Large posterior pleural effusion. Mild bi-atrial enlargement. Right ventricular chamber size is within normal limits. Mild focal aortic valve sclerosis with adequate cusp excursion. Mildly thickened mitral valve leaflets with normal excursion. Mild mitral annulus and aortic root calcification. Normal pulmonic valve structure. Normal tricuspid valve structure. IVC dilated at 2.7 cm with no physiologic collapse, estimated RAP of 20 mmHg. A color flow and spectral Doppler study was performed and revealed: Mild to moderate aortic regurgitation. Severe mitral regurgitation. Left ventricular diastolic function not obtainable due to A-Fib. Severe tricuspid regurgitation. Tricuspid systolic velocities suggests peak right ventricular systolic pressure of 43 mmHg, consistent with mild pulmonary hypertension. Mild pulmonic regurgitation present.
[2016-08-02] MEDS ORDERED: LISINOPRIL20 MG ORAL ×2 (15:35→15:36)
[2016-08-02] MEDS ORDERED: LASIX20 M1 ORAL (15:39)
[2016-08-05] MEDS ORDERED: NOVOLOG100 UNIT/3 SUBQ (07:57)
--- NOTE | 2016-08-05 08:00 | Discharge Summary ---
Discharge Summary Hospital Course Date of Admission Jul 31, 2016 at 23:02 Date of Discharge Aug 02, 2016 at 16:20 Admitting Diagnosis ARF, CHF HPI Burton Mcdaniel is a 66 year old male who was admitted on Jul 31, 2016 at 23:02 for Acute Renal Failure,Congestive Heart Failure Hospital Course dc summary dictated # [id number] Discharge Medications New Medications: Insulin Aspart* (Novolog*) 100 Unit/1 Ml Insuln.pen 0 SUBQ BEFORE MEALS AND HS, #1 EA 0 Refills Continued Medications: Furosemide* (Lasix*) 20 Mg Tablet 20 MG ORAL DAILY, TAB Discharge Discharge Disposition Patient was discharged to Home () Discharge Diagnoses: Discharge Instructions Discharge Instructions Special Instructions I have been assigned to complete a D/C Summary on this account. I was not involved in the patient management Lizzie Paulson NP ([place]) Aug 05, 2016 08:00
--- NOTE | 2016-08-06 05:38 | Discharge Summary 2 SIG ---
DATE OF ADMISSION: 07/31/2016 DATE OF DISCHARGE: 08/02/2016 REASON FOR ADMISSION: 66-year-old male with known history of severe cardiomyopathy, systolic heart failure secondary to cocaine abuse, diabetes, chronic obstructive pulmonary disease, came to emergency room complaining of chest pain and left lower extremity pain and swelling. Troponin was negative. EKG showed normal sinus rhythm. No ischemic changes. Laboratory workup revealed elevated pro BNP at 39,475. Troponin was negative. CT was 475. CK-MB elevated 9.4. Chest x-ray revealed no acute cardiopulmonary disease. Elevated BUN and creatinine. Mild anemia . Urine tox screen was positive for opiates. The patient was admitted to the hospital for further management. ADMITTING DIAGNOSES: 1. Chest pain. 2. Severe systolic heart failure. 3. Chronic kidney disease. 4. Cocaine abuse. 5. Diabetes mellitus. HOSPITAL STAY: The patient was admitted to telemetry floor. Serial troponin were negative. EKG showed normal sinus rhythm. No ischemic changes. Echocardiogram showsed ejection fraction less than 20%, severe tricuspid regurgitation, severe mitral regurgitation, evidence of pulmonary hypertension with right ventricular systolic pressure of 43. Patient's ejection fraction gradually decreasing. In October last year, it was 30 to 35%. In June this year, less than 25% and on this admission, less than 20%. Chest pain shortly subsided, likely atypical, likely secondary to severe cardiomyopathy and systolic heart failure. The patient was multiple times counseled on avoidance of cocaine in order to preserve remaining heart function, however, he was apparently noncompliant. Urine toxicology screen was positive for cocaine. Supplemental oxygen and pulmonary toilet provided as needed. The patient was placed on diuretics. Intake and output, renal parameters, and electrolytes were closely monitored. Tug Captain was involved in the care of this patient. Nephrotoxics avoided. The patient has a chronic kidney disease, multifactorial, mostly prerenal secondary to cardiomyopathy. Renal ultrasound showed medical renal disease with bilateral echogenic kidneys, no hydronephrosis. [place] Rug Setter had seen the patient on the previous admission in June. The patient needs to follow up with the it communications specialist as outpatient. No beta-shea due to the cocaine abuse and chronic obstructive pulmonary disease. The patient again counseled on avoidance of cocaine. Blood sugar was managed with the sliding scale of insulin. Hemoglobin A1c 9.9, not at goal. The patient was recommended to be consistent in compliance with the medication regimen and diet. The patient needs to follow up with the primary medical doctor. No evidence of chronic obstructive pulmonary disease exacerbation. Pulmonary status was stable. The patient has evidence of chronic venous stasis and bilateral lower extremities dermatitis. Pain management provided. Bowel regimen provided. DVT and GI prophylaxis provided. DISCHARGE DIAGNOSES: Include: 1. Severe systolic heart failure, worsening, secondary to cocaine abuse. 2. Severe cardiomyopathy. 3. Pulmonary hypertension. 4. Cocaine abuse. 5. Diabetes mellitus , out of control. 6. Chronic kidney disease. 7. Severe tricuspid regurgitation. 8. Severe mitral regurgitation. 9. Chronic obstructive pulmonary disease. DISCHARGE MEDICATIONS: See medication reconciliation list. DISCHARGE INSTRUCTIONS: The patient discharged home. Strongly recommended to follow up with the primary medical doctor and it communications specialist as outpatient due to the severe cardiomyopathy. The patient was counseled multiple times on avoidance of cocaine. Ирина Thurston M.D. I have been assigned to dictate discharge summary on this account and I was not involved in the patient's management. Lizzie Paulson ([facility]) N.PCharlette DR: HARJEET JOB#: [id number] CC: KRISTIN
--- NOTE | 2016-08-20 14:17 | Cardiology Report ---
APPROVED REPORT EKG Measurement Heart [id number] Normal sinus rhythm Left axis deviation Inferior infarct, age undetermined Abnormal ECG
== END 2016-08-02 16:20 | disposition home or self-care (01) | DRG 194 ==
LOC: EDBD 19:10 → EMR 23:01 → 2E 23:02 → EDBEDREQ 08-01 01:57
DX: I50.23 Acute on chronic systolic (congestive) heart failure (principal); N17.9 Acute kidney failure, unspecified; I27.2 Other secondary pulmonary hypertension; I42.9 Cardiomyopathy, unspecified; E11.65 Type 2 diabetes mellitus with hyperglycemia; I12.9 Hypertensive chronic kidney disease with stage 1 through stage 4 chronic kidney disease, or unspecified chronic kidney disease; N18.9 Chronic kidney disease, unspecified; F14.10 Cocaine abuse, uncomplicated; I83.12 Varicose veins of left lower extremity with inflammation; I83.11 Varicose veins of right lower extremity with inflammation; I08.1 Rheumatic disorders of both mitral and tricuspid valves; J44.9 Chronic obstructive pulmonary disease, unspecified
CPT/HCPCS: 36415; 71010; 76775; 80053; 80061; 80300; 81001; 82248; 82436; 82533; 82550; 82553; 82962; 82977; 83036; 83735; 83880; 83930; 83935; 84100; 84133; 84300; 84439; 84443; 84481; 84484; 84550; 85025; 85610; 85730; 86140; 89050; 93005; 93306; 94664; J1815

== ENCOUNTER 2016-08-11 12:58 | Inpatient (IN) | payer MEDICAID ==
[~2016-08-11] VITALS: Ht 198.1 cm; Wt 89.8 kg
[~2016-08-11 12:58] MED LIST changes: +Albuterol ud Inhalation ONE; +Ipratropium 0.02% Inh Soln 2.5ml UD ONE; +LASIX20 M1 ORAL; +LISINOPRIL20 MG ORAL; +NOVOLOG100 UNIT/3 SUBQ; +Nitroglycerin 2% oint pkt TOPIC ONE
[2016-08-11 13:00] VITALS: BP 121/103
[2016-08-11] MEDS ORDERED: Nitroglycerin 2% oint pkt TOPIC ONE (13:00)
[2016-08-11] MEDS ORDERED: Albuterol ud Inhalation HHN ONE (13:15)
[2016-08-11] MEDS ORDERED: Ipratropium 0.02% Inh Soln 2.5ml UD HHN ONE (13:15)
[2016-08-11 14:00] VITALS: BP 142/123
[2016-08-11 14:13] LABS: APPEARANCE,URINE CLEAR; EOSINOPHILS % (AUTO) 0.4 % (0.0-3.0); KETONES,URINE NEGATIVE (NEGATIVE); LEUKOCYTE ESTERASE ,URINE NEGATIVE (NEGATIVE); LYMPHOCYTES % (AUTO) 18.5 % (20.0-45.0); MEAN CORPUSCULAR HEMOGLOBIN 28.3 PG (27.0-31.0); MEAN CORPUSCULAR HGB CONC 30.2 G/DL (32.0-36.0); MEAN CORPUSCULAR VOLUME 94 FL (80-99); MONOCYTES % (AUTO) 10.9 % (1.0-10.0); NEUTROPHILS % (AUTO) 69.3 % (45.0-75.0); NITRITE,URINE NEGATIVE (NEGATIVE); PH,URINE 6.5 (4.5-8.0); PLATELET COUNT 205 K/UL (150-450); PROTEIN,URINE NEGATIVE (NEGATIVE); RED BLOOD COUNT 4.79 M/UL (4.70-6.10); RED CELL DISTRIBUTION WIDTH 17.3 % (11.6-14.8); UROBILINOGEN,URINE 1 MG/DL (0.0-1.0)
[2016-08-11 14:26] LABS: INR 1.2 (0.9-1.1)
[2016-08-11 14:33] LABS: TROPONIN I < 0.30 ng/mL (<=0.30)
[2016-08-11 14:36] LABS: ALANINE AMINOTRANSFERASE 16 U/L (3-41); ALBUMIN/GLOBULIN RATIO 0.7 (1.0-2.7); ANION GAP 15 (5-15); ASPARTATE AMINO TRANSFERASE 29 U/L (5-40); CALCIUM 9.1 mg/dL (8.6-10.2); CARBON DIOXIDE 26 mEQ/L (20-30); CHLORIDE 103 mEQ/L (98-107); CREATININE 1.9 mg/dL (0.7-1.2); GLOMERULAR FILTRATION RATE 43.4 mL/min (>60); HEMOLYSIS 4; POTASSIUM 4.5 mEQ/L (3.4-4.9); SODIUM 144 mEQ/L (135-145); TOTAL PROTEIN 7.2 g/dL (6.6-8.7)
[2016-08-11 14:57] LABS: BILIRUBIN,DIRECT 1.6 mg/dL (0.1-0.3)
[2016-08-11 15:00] VITALS: BP 125/87
[2016-08-11 17:04] VITALS: BP 140/94
[2016-08-11] MEDS ORDERED: Promethazine/Codeine 5ml UD ORAL PRN (19:30)
[2016-08-11 20:00] VITALS: BP 146/117
[2016-08-11] MEDS: NovoLOG Insulin Flexpen SUBQ SCH (21:44)
--- NOTE | 2016-08-11 23:14 | History and Physical ---
History of Present Illness General Date patient seen: Aug 11, 2016 Reason for Hospitalization: Chest Pain, dyspnea Present Illness HPI 66 year old patient wth pmhx of cardiomyopathy, EF < 20% presented with dyspnea and chest pain which began at 3 am on day of admission. Patient treated in field with aspirin 162, nitrates. Patient c/o wheezing, orthopnea and SCHMIDT. No fevers, chills, productive cough. Some nausea. . Allergies: Coded Allergies: No Known Allergies (Unverified , 09/20/15) Medication History Scheduled Furosemide* (Lasix*), 40 MG ORAL DAILY Furosemide* (Lasix*), 20 MG ORAL DAILY, (Reported) Insulin Aspart* (Novolog*), 0 SUBQ BEFORE MEALS AND HS Lisinopril (Lisinopril*), 20 MG ORAL DAILY, (Reported) Miscellaneous Medications Unable to Obtain Medications (Unable To Obtain Meds), Unknown Dose, (Reported) Unable to Obtain Medications (Unable To Obtain Meds), (Reported) Patient History Healthcare decision maker Resuscitation status Advanced Directive on File Past Medical/Surgical History Past Medical/Surgical History: (1) CHF exacerbation (2) Severe systolic congestive heart failure Review of Systems All Other Systems: negative except mentioned in HPI Physical Exam General Appearance: WD/WN Lines, tubes and drains: peripheral HEENT: normocephalic, anicteric Neck: non-tender, normal alignment Respiratory/Chest: chest wall non-tender, rhonchi - bilaterally Cardiovascular/Chest: normal peripheral pulses, normal rate Genitourinary/Rectal: normal genital exam Extremities: non-tender Last 24 Hour Vital Signs Date Time Temp Pulse Resp B/P Pulse Ox O2 Delivery O2 Flow Rate FiO2 08/11/16 20:00 97.5 113 21 146/117 94 Room Air 08/11/16 17:20 98.3 113 25 140/94 98 Room Air 08/11/16 17:04 98.3 113 25 140/94 98 Room Air 08/11/16 15:00 98.1 115 24 125/87 98 Room Air 08/11/16 14:00 98.2 110 22 142/123 97 Room Air 08/11/16 13:40 105 21 100 Room Air 08/11/16 13:23 21 08/11/16 13:22 102 18 100 Room Air 08/11/16 13:21 102 18 Room Air 21 08/11/16 13:06 133/97 08/11/16 13:00 108 21 Room Air 08/11/16 13:00 98.0 108 21 121/103 99 Room Air 08/11/16 12:54 98.2 102 18 135/103 100 Room Air Laboratory Tests Test 08/11/16 13:39 White Blood Count 7.0 K/UL (4.8-10.8) Red Blood Count 4.79 M/UL (4.70-6.10) Hemoglobin 13.6 G/DL (14.2-18.0) L Hematocrit 44.9 % (42.0-52.0) Mean Corpuscular Volume 94 FL (80-99) Mean Corpuscular Hemoglobin 28.3 PG (27.0-31.0) Mean Corpuscular Hemoglobin Concent 30.2 G/DL (32.0-36.0) L Red Cell Distribution Width 17.3 % (11.6-14.8) H Platelet Count 205 K/UL (150-450) Mean Platelet Volume 8.0 FL (6.5-10.1) Neutrophils (%) (Auto) 69.3 % (45.0-75.0) Lymphocytes (%) (Auto) 18.5 % (20.0-45.0) L Monocytes (%) (Auto) 10.9 % (1.0-10.0) H Eosinophils (%) (Auto) 0.4 % (0.0-3.0) Basophils (%) (Auto) 1.0 % (0.0-2.0) Prothrombin Time 12.0 SEC (9.30-11.50) H Prothromb Time International Ratio 1.2 (0.9-1.1) H Activated Partial Thromboplast Time 24 SEC (23-33) Urine Color Pale yellow Urine Appearance Clear Urine pH 6.5 (4.5-8.0) Urine Specific [place] 1.005 (1.005-1.035) Urine Protein Negative (NEGATIVE) Urine Glucose (UA) 4+ (NEGATIVE) H Urine Ketones Negative (NEGATIVE) Urine Occult Blood Negative (NEGATIVE) Urine Nitrite Negative (NEGATIVE) Urine Bilirubin Negative (NEGATIVE) Urine Urobilinogen 1 MG/DL (0.0-1.0) H Urine Leukocyte Esterase Negative (NEGATIVE) Sodium Level 144 mEQ/L (135-145) Potassium Level 4.5 mEQ/L (3.4-4.9) Chloride Level 103 mEQ/L (98-107) Carbon Dioxide Level 26 mEQ/L (20-30) Anion Gap 15 (5-15) Blood Urea Nitrogen 41 mg/dL (7-23) H Creatinine 1.9 mg/dL (0.7-1.2) H Estimat Glomerular Filtration Rate 43.4 mL/min (>60) Glucose Level 415 mg/dL (74-106) H Calcium Level 9.1 mg/dL (8.6-10.2) Total Bilirubin 2.6 mg/dL (0.0-1.2) H Direct Bilirubin 1.6 mg/dL (0.1-0.3) H Aspartate Amino Transf (AST/SGOT) 29 U/L (5-40) Alanine Aminotransferase (ALT/SGPT) 16 U/L (3-41) Alkaline Phosphatase 253 U/L (40-129) H Total Creatine Kinase 106 U/L (38-174) Troponin I < 0.30 ng/mL (<=0.30) Pro-B-Type Natriuretic Peptide 4128 pg/mL (0-125) H Total Protein 7.2 g/dL (6.6-8.7) Albumin 3.1 g/dL (3.5-5.2) L Globulin 4.1 g/dL Albumin/Globulin Ratio 0.7 (1.0-2.7) L Height (Feet): 6 Height (Inches): 1.00 Weight (Pounds): 200 Medications Current Medications Medications (Trade) Dose Ordered Sig/Morteza Route PRN Reason Start Time Stop Time Status Last Admin Dose Admin Acetaminophen (Tylenol) 650 mg Q4H PRN ORAL Mild Pain/Temp > 100.5 08/11/16 19:30 09/10/16 19:29 Dextrose (Dextrose 50%) STAT PRN IV Hypoglycemia 08/11/16 19:30 09/10/16 19:29 Furosemide (Lasix) 40 mg THREE TIMES A DAY ORAL 08/11/16 23:30 09/10/16 23:29 Insulin Aspart (NovoLOG) BEFORE MEALS AND HS SUBQ 08/11/16 21:30 09/10/16 21:29 3/12/17 21:44 Lisinopril (Prinivil) 20 mg DAILY ORAL 08/12/16 09:00 09/11/16 08:59 Promethazine HCl/ Codeine (Phenergan with Codeine) 5 ml Q4H PRN ORAL For Cough 08/11/16 19:30 09/10/16 19:29 Temazepam (Restoril) 15 mg HSPRN PRN ORAL Insomnia 08/11/16 19:30 08/18/16 19:29 Assessment/Plan Problem List: (1) Severe systolic congestive heart failure ICD Codes: I50.20 - Unspecified systolic (congestive) heart failure SNOMED: 85675275, 248715762 (2) CHF exacerbation ICD Codes: I50.9 - Heart failure, unspecified SNOMED: 42838739 Qualifiers: Qualified Codes: I50.43 - Acute on chronic combined systolic (congestive) and diastolic (congestive) heart failure (3) Cocaine abuse ICD Codes: F14.10 - Cocaine abuse, uncomplicated SNOMED: 77715494 Assessment/Plan diuretics cardiac monitoring check electrolytes cardiology evaluation KENY JIMÉNEZ Aug 11, 2016 23:14
[2016-08-12] MEDS: Furosemide 40mg tab ORAL SCH ×4 (00:11→18:00)
[2016-08-12 00:30] VITALS: BP 111/63
[2016-08-12] MEDS ORDERED: DuoNeb 0.5-3(2.5)mg/3ml neb HHN PRN (00:45)
[2016-08-12 04:00] VITALS: BP 120/90
--- NOTE | 2016-08-12 04:17 | Emergency Room Report ---
History of Present Illness General Chief Complaint: Chest Pain Source: Patient Present Illness HPI Patient presents with dyspnea and chest pain which began at 3 am. Patient treated in field with aspirin 162, nitrates. Patient c/o wheezing, orthopnea and SCHMIDT. No fevers, chills, productive cough. Some nausea. He feels nitrates did not help him. He rates pain at 9/10, pressure, radiating to shoulders, constant. Recently hospitalized for CHF. H/O DM H/O COPD Allergies: Coded Allergies: No Known Allergies (Unverified , 09/20/15) Patient History Past Medical History: see triage record Social History: Reports: drug use - listed as prior cocaine use, smoking - prior Social History Narrative home Reviewed Nursing Documentation: PMH: Agreed, PSxH: Agreed Nursing Documentation-PMH Past Medical History: No History, Except For Hx Cardiac Problems: Yes Hx Hypertension: Yes Hx Pacemaker: No Hx Asthma: Yes Hx COPD: Yes Hx Diabetes: Yes Hx Cancer: No Hx Gastrointestinal Problems: No Hx Dialysis: No Hx Neurological Problems: No Hx Cerebrovascular Accident: No Hx Transient Ischemic Attacks: No Hx Seizures: No Review of Systems All Other Systems: negative except mentioned in HPI Physical Exam Vital Signs Date Time Temp Pulse Resp B/P Pulse Ox O2 Delivery O2 Flow Rate FiO2 08/11/16 12:54 98.2 102 18 135/103 100 Room Air 08/11/16 13:21 21 08/12/16 00:30 2.0 Sp02 EP Interpretation: reviewed, normal General Appearance: well appearing, no apparent distress, GCS 15 Head: normocephalic Eyes: bilateral eye PERRL, bilateral eye normal inspection ENT: moist mucus membranes Neck: supple Respiratory: decreased breath sounds, rales, wheezing, expiration Cardiovascular #1: JVD - to angle of jaw while sitting, tachycardia, edema Cardiovascular #2: 2+ radial (R) Gastrointestinal: normal inspection, normal bowel sounds, soft, no guarding Musculoskeletal: normal range of motion, non-tender, no calf tenderness, pelvis stable Neurologic: alert, oriented x3, grossly normal Psychiatric: depressed affect Skin: normal color Medical Decision Making Diagnostic Impression: Primary Impression: CHF exacerbation Qualified Codes: I50.43 - Acute on chronic combined systolic (congestive) and diastolic (congestive) heart failure Additional Impressions: Cardiac asthma COPD exacerbation Chest pain Qualified Codes: R07.9 - Chest pain, unspecified ER Course Patient presents with chest pain, dyspnea and signs of CHF. Ddx: AMI, salt excess, CHF, COPD, cardiac asthma. Emergent evaluation with EKG, CXR, labs. Patient will be treated with nitrates, lasix and morphine. EKG with ST and PVCs. CXR with CHF. Labs with negative troponin. Renal insufficiency (has been worse in past) Patient improved with treatment, but still needs observation. Admit tele Dr. Thurston. Laboratory Tests Test 08/11/16 13:39 White Blood Count 7.0 K/UL (4.8-10.8) Red Blood Count 4.79 M/UL (4.70-6.10) Hemoglobin 13.6 G/DL (14.2-18.0) L Hematocrit 44.9 % (42.0-52.0) Mean Corpuscular Volume 94 FL (80-99) Mean Corpuscular Hemoglobin 28.3 PG (27.0-31.0) Mean Corpuscular Hemoglobin Concent 30.2 G/DL (32.0-36.0) L Red Cell Distribution Width 17.3 % (11.6-14.8) H Platelet Count 205 K/UL (150-450) Mean Platelet Volume 8.0 FL (6.5-10.1) Neutrophils (%) (Auto) 69.3 % (45.0-75.0) Lymphocytes (%) (Auto) 18.5 % (20.0-45.0) L Monocytes (%) (Auto) 10.9 % (1.0-10.0) H Eosinophils (%) (Auto) 0.4 % (0.0-3.0) Basophils (%) (Auto) 1.0 % (0.0-2.0) Prothrombin Time 12.0 SEC (9.30-11.50) H Prothrombin Time INR 1.2 (0.9-1.1) H PTT 24 SEC (23-33) Urine Color Pale yellow Urine Appearance Clear Urine pH 6.5 (4.5-8.0) Urine Specific [place] 1.005 (1.005-1.035) Urine Protein Negative (NEGATIVE) Urine Glucose (UA) 4+ (NEGATIVE) H Urine Ketones Negative (NEGATIVE) Urine Occult Blood Negative (NEGATIVE) Urine Nitrite Negative (NEGATIVE) Urine Bilirubin Negative (NEGATIVE) Urine Urobilinogen 1 MG/DL (0.0-1.0) H Urine Leukocyte Esterase Negative (NEGATIVE) Sodium Level 144 mEQ/L (135-145) Potassium Level 4.5 mEQ/L (3.4-4.9) Chloride Level 103 mEQ/L (98-107) Carbon Dioxide Level 26 mEQ/L (20-30) Anion Gap 15 (5-15) Blood Urea Nitrogen 41 mg/dL (7-23) H Creatinine 1.9 mg/dL (0.7-1.2) H Estimate Glomerular Filtration Rate 43.4 mL/min (>60) Glucose Level 415 mg/dL (74-106) H Calcium Level 9.1 mg/dL (8.6-10.2) Total Bilirubin 2.6 mg/dL (0.0-1.2) H Direct Bilirubin 1.6 mg/dL (0.1-0.3) H Aspartate Amino Transferase (AST) 29 U/L (5-40) Alanine Aminotransferase (ALT) 16 U/L (3-41) Alkaline Phosphatase 253 U/L (40-129) H Total Creatine Kinase 106 U/L (38-174) Troponin I < 0.30 ng/mL (<=0.30) Pro-B-Type Natriuretic Peptide 4128 pg/mL (0-125) H Total Protein 7.2 g/dL (6.6-8.7) Albumin 3.1 g/dL (3.5-5.2) L Globulin 4.1 g/dL Albumin/Globulin Ratio 0.7 (1.0-2.7) L EKG Diagnostic Results Rate: tachycardiac ST Segments: no acute changes Rhythm Strip Diag. Results EP Interpretation: yes Rhythm: other - ST, 111, PVCs, NSSTTW changes Chest X-Ray Diagnostic Results EP Interpretation: Yes Findings: no consolidation, no effusion, no pneumothorax, other - inc cor - pulm HTN Number of Views: 1 Last Vital Signs Date Time Temp Pulse Resp B/P Pulse Ox O2 Delivery O2 Flow Rate FiO2 08/12/16 00:30 98.0 114 20 111/63 100 Nasal Cannula 2.0 08/11/16 17:20 21 Status: improved Disposition: ADMITTED INPATIENT Condition: Serious Referrals: [facility],REFERRING (PCP) Henrry Ghosh M.D. Aug 12, 2016 04:17
[2016-08-12] MEDS: NovoLOG Insulin Flexpen SUBQ SCH ×4 (06:30→21:00)
[2016-08-12 08:00] VITALS: BP 151/104
[2016-08-12] MEDS ORDERED: Lisinopril 20mg tab ORAL SCH (09:00)
[2016-08-12 11:32] LABS: EOSINOPHILS % (AUTO) 0.3 % (0.0-3.0); LYMPHOCYTES % (AUTO) 18.8 % (20.0-45.0); MEAN CORPUSCULAR HEMOGLOBIN 28.6 PG (27.0-31.0); MEAN CORPUSCULAR HGB CONC 30.8 G/DL (32.0-36.0); MEAN CORPUSCULAR VOLUME 93 FL (80-99); MEAN PLATELET VOLUME 8.2 FL (6.5-10.1); MONOCYTES % (AUTO) 12.2 % (1.0-10.0); NEUTROPHILS % (AUTO) 67.7 % (45.0-75.0); PLATELET COUNT 219 K/UL (150-450); RED BLOOD COUNT 5.13 M/UL (4.70-6.10); RED CELL DISTRIBUTION WIDTH 16.8 % (11.6-14.8); WHITE BLOOD COUNT 8.4 K/UL (4.8-10.8)
[2016-08-12 11:50] LABS: ALBUMIN/GLOBULIN RATIO 0.7 (1.0-2.7); CALCIUM 9.4 mg/dL (8.6-10.2); CREATININE 1.7 mg/dL (0.7-1.2); GLOMERULAR FILTRATION RATE 49.3 mL/min (>60); MAGNESIUM 1.7 mg/dL (1.7-2.5); PHOSPHORUS 3.3 mg/dL (2.5-4.8); POTASSIUM 4.1 mEQ/L (3.4-4.9); TOTAL PROTEIN 7.9 g/dL (6.6-8.7)
[2016-08-12 12:00] VITALS: BP 160/92
[2016-08-12 12:02] LABS: BILIRUBIN,DIRECT 2.8 mg/dL (0.1-0.3)
--- NOTE | 2016-08-12 13:10 | Pulmonology Progress Note ---
Assessment/Plan Problems: (1) Severe systolic congestive heart failure (2) CHF exacerbation (3) Cocaine abuse Assessment/Plan continue diuretic titrate fio2 to sat of 92% check electrolytes respiratory treatment Subjective ROS Limited/Unobtainable: No Interval Events: feeling better Allergies: Coded Allergies: No Known Allergies (Unverified , 09/20/15) Objective Last 24 Hour Vital Signs Date Time Temp Pulse Resp B/P Pulse Ox O2 Delivery O2 Flow Rate FiO2 08/12/16 08:41 154/104 08/12/16 08:00 96.5 115 25 151/104 97 Nasal Cannula 4.0 115 08/12/16 04:00 98.1 111 20 120/90 95 Room Air 08/12/16 04:00 112 08/12/16 00:30 98.0 114 20 111/63 100 Nasal Cannula 2.0 08/12/16 00:00 114 08/11/16 20:00 116 08/11/16 20:00 97.5 113 21 146/117 94 Room Air 08/11/16 17:20 98.3 113 25 140/94 98 Room Air 21 08/11/16 17:04 98.3 113 25 140/94 98 Room Air 21 08/11/16 15:00 98.1 115 24 125/87 98 Room Air 21 08/11/16 14:00 98.2 110 22 142/123 97 Room Air 21 08/11/16 13:40 105 21 100 Room Air 21 08/11/16 13:23 21 08/11/16 13:22 102 18 100 Room Air 21 08/11/16 13:21 102 18 Room Air 21 Intake and Output 08/11/16 08/12/16 19:00 07:00 Output Total 500 ml 800 ml Balance -500 ml -800 ml Output Urine Total 500 ml 800 ml # Voids 1 4 # Bowel Movements 1 General Appearance: WD/WN HEENT: normocephalic Respiratory/Chest: chest wall non-tender, lungs clear Cardiovascular: normal peripheral pulses, normal rate Abdomen: normal bowel sounds, soft, non tender Genitourinary: normal external genitalia Skin: no rash Neurologic/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: 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 II-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 grossly normal Laboratory Tests 08/11/16 13:39: White Blood Count 7.0, Red Blood Count 4.79, Hemoglobin 13.6L, Hematocrit 44.9, Mean Corpuscular Volume 94, Mean Corpuscular Hemoglobin 28.3, Mean Corpuscular Hemoglobin Concent 30.2L, Red Cell Distribution Width 17.3H, Platelet Count 205 , Mean Platelet Volume 8.0, Neutrophils (%) (Auto) 69.3, Lymphocytes (%) (Auto) 18.5L, Monocytes (%) (Auto) 10.9H, Eosinophils (%) (Auto) 0.4, Basophils (%) ( Auto) 1.0, Prothrombin Time 12.0H, Prothromb Time International Ratio 1.2H, Activated Partial Thromboplast Time 24, Urine Color Pale yellow, Urine Appearance Clear, Urine pH 6.5, Urine Specific [place] 1.005, Urine Protein Negative, Urine Glucose (UA) 4+H, Urine Ketones Negative, Urine Occult Blood Negative, Urine Nitrite Negative, Urine Bilirubin Negative, Urine Urobilinogen 1H, Urine Leukocyte Esterase Negative, Sodium Level 144, Potassium Level 4.5, Chloride Level 103, Carbon Dioxide Level 26, Anion Gap 15, Blood Urea Nitrogen 41H, Creatinine 1.9H, Estimat Glomerular Filtration Rate 43.4, Glucose Level 415H, Calcium Level 9.1, Total Bilirubin 2.6H, Direct Bilirubin 1.6H, Aspartate Amino Transf (AST/SGOT) 29, Alanine Aminotransferase (ALT/SGPT) 16, Alkaline Phosphatase 253H, Total Creatine Kinase 106, Troponin I < 0.30, Pro-B-Type Natriuretic Peptide 4128H, Total Protein 7.2, Albumin 3.1L, Globulin 4.1, Albumin/Globulin Ratio 0.7L 08/12/16 11:25: White Blood Count 8.4, Red Blood Count 5.13, Hemoglobin 14.7, Hematocrit 47.7, Mean Corpuscular Volume 93, Mean Corpuscular Hemoglobin 28.6, Mean Corpuscular Hemoglobin Concent 30.8L, Red Cell Distribution Width 16.8H, Platelet Count 219 , Mean Platelet Volume 8.2, Neutrophils (%) (Auto) 67.7, Lymphocytes (%) (Auto) 18.8L, Monocytes (%) (Auto) 12.2H, Eosinophils (%) (Auto) 0.3, Basophils (%) ( Auto) 1.0, Sodium Level 144, Potassium Level 4.1, Chloride Level 101, Carbon Dioxide Level 24, Anion Gap 19H, Blood Urea Nitrogen 43H, Creatinine 1.7H, Estimat Glomerular Filtration Rate 49.3, Glucose Level 136#H, Calcium Level 9.4 , Total Bilirubin 4.2H, Direct Bilirubin 2.8H, Aspartate Amino Transf (AST/SGOT ) 38, Alanine Aminotransferase (ALT/SGPT) 18, Alkaline Phosphatase 236H, Total Protein 7.9, Albumin 3.5, Globulin 4.4, Albumin/Globulin Ratio 0.7L, Phosphorus Level 3.3, Magnesium Level 1.7 Current Medications Medications (Trade) Dose Ordered Sig/Morteza Route PRN Reason Start Time Stop Time Status Last Admin Dose Admin Acetaminophen (Tylenol) 650 mg Q4H PRN ORAL Mild Pain/Temp > 100.5 08/11/16 19:30 09/10/16 19:29 Albuterol/ Ipratropium (DuoNeb 0.5-3(2.5)mg/3ml) 3 ml Q4H PRN HHN Shortness of Breath 08/12/16 00:45 08/17/16 00:44 Dextrose (Dextrose 50%) STAT PRN IV Hypoglycemia 08/11/16 19:30 09/10/16 19:29 Furosemide (Lasix) 40 mg THREE TIMES A DAY ORAL 08/11/16 23:30 09/10/16 23:29 08/12/16 08:40 Insulin Aspart (NovoLOG) BEFORE MEALS AND HS SUBQ 08/11/16 21:30 09/10/16 21:29 08/11/16 21:44 Lisinopril (Prinivil) 20 mg DAILY ORAL 08/12/16 09:00 09/11/16 08:59 08/12/16 08:41 Promethazine HCl/ Codeine (Phenergan with Codeine) 5 ml Q4H PRN ORAL For Cough 08/11/16 19:30 09/10/16 19:29 Temazepam (Restoril) 15 mg HSPRN PRN ORAL Insomnia 08/11/16 19:30 08/18/16 19:29 KENY JIMÉNEZ Aug 12, 2016 13:10
--- NOTE | 2016-08-12 15:04 | Diagnostic Imaging Report ---
Indications: Trauma Technique: Spiral acquisitions obtained through the brain. Angled axial and coronal 5 x 5 mm slices were reconstructed. Total dose length product 1404 mGycm. CTDI vol(s) 70 mGy Comparison: None Findings: There is a wedge-shaped area of low attenuation in the posterior inferior left frontal lobe. There is an old lacunar infarct in the right basal ganglia region. Digital right cerebellar deep white matter hemispheric infarct. No acute hemorrhage or edema. No mass effect or midline shift. There is age-related enlargement of ventricles and extra-axial CSF spaces. There is periventricular the white matter chronic ischemic change. Visualized orbits and sinuses are unremarkable. The calvarium is intact. No significant extracranial soft tissue abnormality. Impression: Negative for acute intracranial bleed or mass effect Wedge-shaped area of low attenuation in the left posterior inferior frontal region, consistent with an infarct, either subacute or old Other chronic and age-related changes, as described The CT scanner at [facility] is accredited by the [employer] [employer] and the scans are performed using protocols designed to limit radiation exposure to as low as reasonably achievable to attain images of sufficient resolution adequate for diagnostic evaluation.
[2016-08-12 16:00] VITALS: BP 159/88
--- NOTE | 2016-08-12 16:50 | Diagnostic Imaging Report ---
Indication: Shortness of breath Technique: One view of the chest Comparison: 07/31/2016 Findings: Heart is enlarged. Lungs demonstrate equivocal minimal interstitial congestion.. No significant change. Impression: Doubt acute process; mild interstitial congestion not completely excludable Cardiomegaly This agrees with the preliminary interpretation provided by Dr. Easley
--- NOTE | 2016-08-12 19:49 | Cardiology Report ---
APPROVED REPORT EKG Measurement Heart [id number] Sinus tachycardia with occasional premature ventricular complexes Possible Left atrial enlargement Left axis deviation Inferior infarct, age undetermined Abnormal ECG
[2016-08-12 20:00] VITALS: BP 128/95
--- NOTE | 2016-08-12 20:29 | Cardiology Progress Note ---
Assessment/Plan Assessment/Plan 1. Chronic obstructive pulmonary disease. 2. History of congestive heart failure, acute systolic on chronic systolic heart failure. 3. Mitral regurgitation. 4. Pulmonary hypertension. 5. suystemic htn 6. renal insuf trop neg ekg noted diuretic acei and bp contorl Objective Last 24 Hour Vital Signs Date Time Temp Pulse Resp B/P Pulse Ox O2 Delivery O2 Flow Rate FiO2 08/12/16 16:00 97.7 108 20 159/88 95 Nasal Cannula 5.0 08/12/16 12:00 96.7 115 23 160/92 95 Nasal Cannula 3.0 115 08/12/16 12:00 111 08/12/16 08:41 154/104 08/12/16 08:00 96.5 115 25 151/104 97 Nasal Cannula 4.0 115 08/12/16 04:00 98.1 111 20 120/90 95 Room Air 08/12/16 04:00 112 08/12/16 00:30 98.0 114 20 111/63 100 Nasal Cannula 2.0 08/12/16 00:00 114 Intake and Output 08/11/16 08/12/16 19:00 07:00 Output Total 500 ml 800 ml Balance -500 ml -800 ml Output Urine Total 500 ml 800 ml # Voids 1 4 # Bowel Movements 1 Laboratory Tests Test 08/12/16 11:25 White Blood Count 8.4 K/UL (4.8-10.8) Red Blood Count 5.13 M/UL (4.70-6.10) Hemoglobin 14.7 G/DL (14.2-18.0) Hematocrit 47.7 % (42.0-52.0) Mean Corpuscular Volume 93 FL (80-99) Mean Corpuscular Hemoglobin 28.6 PG (27.0-31.0) Mean Corpuscular Hemoglobin Concent 30.8 G/DL (32.0-36.0) L Red Cell Distribution Width 16.8 % (11.6-14.8) H Platelet Count 219 K/UL (150-450) Mean Platelet Volume 8.2 FL (6.5-10.1) Neutrophils (%) (Auto) 67.7 % (45.0-75.0) Lymphocytes (%) (Auto) 18.8 % (20.0-45.0) L Monocytes (%) (Auto) 12.2 % (1.0-10.0) H Eosinophils (%) (Auto) 0.3 % (0.0-3.0) Basophils (%) (Auto) 1.0 % (0.0-2.0) Sodium Level 144 mEQ/L (135-145) Potassium Level 4.1 mEQ/L (3.4-4.9) Chloride Level 101 mEQ/L (98-107) Carbon Dioxide Level 24 mEQ/L (20-30) Anion Gap 19 (5-15) H Blood Urea Nitrogen 43 mg/dL (7-23) H Creatinine 1.7 mg/dL (0.7-1.2) H Estimat Glomerular Filtration Rate 49.3 mL/min (>60) Glucose Level 136 mg/dL (74-106) #H Calcium Level 9.4 mg/dL (8.6-10.2) Phosphorus Level 3.3 mg/dL (2.5-4.8) Magnesium Level 1.7 mg/dL (1.7-2.5) Total Bilirubin 4.2 mg/dL (0.0-1.2) H Direct Bilirubin 2.8 mg/dL (0.1-0.3) H Aspartate Amino Transf (AST/SGOT) 38 U/L (5-40) Alanine Aminotransferase (ALT/SGPT) 18 U/L (3-41) Alkaline Phosphatase 236 U/L (40-129) H Total Protein 7.9 g/dL (6.6-8.7) Albumin 3.5 g/dL (3.5-5.2) Globulin 4.4 g/dL Albumin/Globulin Ratio 0.7 (1.0-2.7) JULIOCESAR HARO Aug 12, 2016 20:29
[2016-08-13] VITALS: BP 136/83
[2016-08-13 04:30] VITALS: BP 138/72
[2016-08-13] MEDS: NovoLOG Insulin Flexpen SUBQ SCH ×4 (06:30→22:20)
[2016-08-13 08:00] VITALS: BP 137/95
[2016-08-13 08:30] LABS: ALBUMIN/GLOBULIN RATIO 0.7 (1.0-2.7); CALCIUM 9.5 mg/dL (8.6-10.2); CREATININE 1.7 mg/dL (0.7-1.2); GLOMERULAR FILTRATION RATE 49.3 mL/min (>60); POTASSIUM 4.3 mEQ/L (3.4-4.9); TOTAL PROTEIN 7.2 g/dL (6.6-8.7)
[2016-08-13 08:37] LABS: BASOPHILS % (AUTO) 1.5 % (0.0-2.0); EOSINOPHILS % (AUTO) 0.7 % (0.0-3.0); LYMPHOCYTES % (AUTO) 23.7 % (20.0-45.0); MEAN CORPUSCULAR HEMOGLOBIN 28.4 PG (27.0-31.0); MEAN CORPUSCULAR HGB CONC 31.2 G/DL (32.0-36.0); MEAN CORPUSCULAR VOLUME 91 FL (80-99); MEAN PLATELET VOLUME 7.9 FL (6.5-10.1); MONOCYTES % (AUTO) 9.4 % (1.0-10.0); NEUTROPHILS % (AUTO) 64.8 % (45.0-75.0); PLATELET COUNT 221 K/UL (150-450); RED CELL DISTRIBUTION WIDTH 16.9 % (11.6-14.8); WHITE BLOOD COUNT 5.5 K/UL (4.8-10.8)
[2016-08-13 08:41] LABS: BILIRUBIN,DIRECT 2.8 mg/dL (0.1-0.3)
[2016-08-13] MEDS: Lisinopril 20mg tab ORAL SCH ×2 (10:10→18:00)
[2016-08-13] MEDS: Furosemide 40mg tab ORAL SCH ×3 (10:10→18:00)
--- NOTE | 2016-08-13 10:42 | Cardiology Progress Note ---
Assessment/Plan Assessment/Plan 1. Severe systolic heart failure, worsening, secondary to cocaine abuse. 2. Severe cardiomyopathy. 3. Pulmonary hypertension. 4. Cocaine abuse. 5. Diabetes mellitus , out of control. 6. Chronic kidney disease. 7. Severe tricuspid regurgitation. 8. Severe mitral regurgitation. 9. Chronic obstructive pulmonary disease bp is stil elevated but the dose of meds have just been increased he admits to not being noncompliant with meds at home he appear better today if bp is still elevated after the meds after a few dyas others may need to be added needs 30 day supply of meds on dc as he indicated he did not have any meds to take importance of compliance with fu d/w pt Subjective Cardiovascular: Denies: chest pain, lightheadedness Respiratory: Reports: SOB with excertion, shortness of breath Gastrointestinal/Abdominal: Denies: abdominal pain Genitourinary: Denies: burning Objective Last 24 Hour Vital Signs Date Time Temp Pulse Resp B/P Pulse Ox O2 Delivery O2 Flow Rate FiO2 08/13/16 10:11 105 137/95 08/13/16 10:10 137/95 08/13/16 08:00 96.8 105 25 137/95 Nasal Cannula 4.0 08/13/16 04:30 97.0 72 20 138/72 94 Nasal Cannula 2.0 08/13/16 00:00 97.0 94 20 136/83 94 Nasal Cannula 2.0 08/13/16 00:00 105 08/12/16 20:30 111 110/80 08/12/16 20:00 107 19 128/95 99 Room Air 08/12/16 20:00 109 08/12/16 16:00 97.7 108 20 159/88 95 Nasal Cannula 5.0 08/12/16 16:00 117 08/12/16 12:00 96.7 115 23 160/92 95 Nasal Cannula 3.0 115 08/12/16 12:00 111 General Appearance: no apparent distress Neck: supple Cardiovascular: normal rate, regular rhythm Respiratory/Chest: lungs clear Abdomen: normal bowel sounds, non tender, soft Extremities: moderate edema Intake and Output 08/12/16 08/13/16 19:00 07:00 Intake Total 680 ml Output Total 680 ml Balance 0 ml Intake Oral 680 ml Output Urine Total 680 ml # Voids 3 2 Laboratory Tests Test 08/12/16 11:25 08/13/16 07:08 08/13/16 08:15 White Blood Count 8.4 K/UL (4.8-10.8) 5.5 K/UL (4.8-10.8) Red Blood Count 5.13 M/UL (4.70-6.10) 5.20 M/UL (4.70-6.10) Hemoglobin 14.7 G/DL (14.2-18.0) 14.8 G/DL (14.2-18.0) Hematocrit 47.7 % (42.0-52.0) 47.4 % (42.0-52.0) Mean Corpuscular Volume 93 FL (80-99) 91 FL (80-99) Mean Corpuscular Hemoglobin 28.6 PG (27.0-31.0) 28.4 PG (27.0-31.0) Mean Corpuscular Hemoglobin Concent 30.8 G/DL (32.0-36.0) L 31.2 G/DL (32.0-36.0) L Red Cell Distribution Width 16.8 % (11.6-14.8) H 16.9 % (11.6-14.8) H Platelet Count 219 K/UL (150-450) 221 K/UL (150-450) Mean Platelet Volume 8.2 FL (6.5-10.1) 7.9 FL (6.5-10.1) Neutrophils (%) (Auto) 67.7 % (45.0-75.0) 64.8 % (45.0-75.0) Lymphocytes (%) (Auto) 18.8 % (20.0-45.0) L 23.7 % (20.0-45.0) Monocytes (%) (Auto) 12.2 % (1.0-10.0) H 9.4 % (1.0-10.0) Eosinophils (%) (Auto) 0.3 % (0.0-3.0) 0.7 % (0.0-3.0) Basophils (%) (Auto) 1.0 % (0.0-2.0) 1.5 % (0.0-2.0) Sodium Level 144 mEQ/L (135-145) 142 mEQ/L (135-145) Potassium Level 4.1 mEQ/L (3.4-4.9) 4.3 mEQ/L (3.4-4.9) Chloride Level 101 mEQ/L (98-107) 99 mEQ/L (98-107) Carbon Dioxide Level 24 mEQ/L (20-30) 19 mEQ/L (20-30) L Anion Gap 19 (5-15) H 24 (5-15) H Blood Urea Nitrogen 43 mg/dL (7-23) H 47 mg/dL (7-23) H Creatinine 1.7 mg/dL (0.7-1.2) H 1.7 mg/dL (0.7-1.2) H Estimat Glomerular Filtration Rate 49.3 mL/min (>60) 49.3 mL/min (>60) Glucose Level 136 mg/dL (74-106) #H 116 mg/dL (74-106) H Calcium Level 9.4 mg/dL (8.6-10.2) 9.5 mg/dL (8.6-10.2) Phosphorus Level 3.3 mg/dL (2.5-4.8) Magnesium Level 1.7 mg/dL (1.7-2.5) Total Bilirubin 4.2 mg/dL (0.0-1.2) H 4.7 mg/dL (0.0-1.2) H Direct Bilirubin 2.8 mg/dL (0.1-0.3) H 2.8 mg/dL (0.1-0.3) H Aspartate Amino Transf (AST/SGOT) 38 U/L (5-40) 41 U/L (5-40) H Alanine Aminotransferase (ALT/SGPT) 18 U/L (3-41) 17 U/L (3-41) Alkaline Phosphatase 236 U/L (40-129) H 205 U/L (40-129) H Total Protein 7.9 g/dL (6.6-8.7) 7.2 g/dL (6.6-8.7) Albumin 3.5 g/dL (3.5-5.2) 3.1 g/dL (3.5-5.2) L Globulin 4.4 g/dL 4.1 g/dL Albumin/Globulin Ratio 0.7 (1.0-2.7) L 0.7 (1.0-2.7) L Pro-B-Type Natriuretic Peptide 4509 pg/mL (0-125) H JULIOCESAR GONSALEZ Aug 13, 2016 10:42
--- NOTE | 2016-08-13 10:46 | Diagnostic Imaging Report ---
Indication: Chest pain Technique: One view of the chest Comparison: 07/31/2016 Findings: The heart is enlarged the lungs and pleural spaces are clear. No significant change Impression: Cardiomegaly. No acute process
[2016-08-13 12:00] VITALS: BP 137/57
--- NOTE | 2016-08-13 12:59 | Diagnostic Imaging Report ---
Indication: DYSPNEA Technique: One view of the chest Comparison: 08/12/2016 Findings: There is increasing opacity in both lung bases. The heart remains enlarged. Impression: Increasing bilateral basilar opacities, likely infiltrates/edema, pleural fluid, or both, over one day Stable cardiomegaly
[2016-08-13 16:00] VITALS: BP 111/80
[2016-08-13 20:00] VITALS: BP 123/89
--- NOTE | 2016-08-13 22:31 | Pulmonology Progress Note ---
Assessment/Plan Problems: (1) Severe systolic congestive heart failure (2) CHF exacerbation (3) Cocaine abuse Assessment/Plan continue diuretic titrate fio2 to sat of 92% check electrolytes respiratory treatment dc home when HR is less cxr better Subjective Interval Events: less short of breath Allergies: Coded Allergies: No Known Allergies (Unverified , 09/20/15) Objective Last 24 Hour Vital Signs Date Time Temp Pulse Resp B/P Pulse Ox O2 Delivery O2 Flow Rate FiO2 08/13/16 20:00 98.0 105 22 123/89 96 Room Air 08/13/16 18:00 111/80 08/13/16 16:00 96.6 103 21 111/80 94 Nasal Cannula 2.0 08/13/16 12:00 96.4 106 23 137/57 93 Nasal Cannula 3.0 08/13/16 10:11 105 137/95 08/13/16 10:10 137/95 08/13/16 08:00 96.8 105 25 137/95 Nasal Cannula 4.0 08/13/16 08:00 108 08/13/16 04:30 97.0 72 20 138/72 94 Nasal Cannula 2.0 08/13/16 00:00 97.0 94 20 136/83 94 Nasal Cannula 2.0 08/13/16 00:00 105 Intake and Output 08/12/16 08/13/16 19:00 07:00 Intake Total 680 ml Output Total 680 ml Balance 0 ml Intake Oral 680 ml Output Urine Total 680 ml # Voids 3 2 General Appearance: WD/WN HEENT: normocephalic, atraumatic Respiratory/Chest: chest wall non-tender, lungs clear Cardiovascular: normal peripheral pulses, normal rate Abdomen: normal bowel sounds, soft, non tender 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 Lymphatic: no neck adenopathy Laboratory Tests 08/13/16 07:08: Sodium Level 142, Potassium Level 4.3, Chloride Level 99, Carbon Dioxide Level 19L, Anion Gap 24H, Blood Urea Nitrogen 47H, Creatinine 1.7H, Estimat Glomerular Filtration Rate 49.3, Glucose Level 116H, Calcium Level 9.5, Total Bilirubin 4.7H, Direct Bilirubin 2.8H, Aspartate Amino Transf (AST/SGOT) 41H, Alanine Aminotransferase (ALT/SGPT) 17, Alkaline Phosphatase 205H, Pro-B-Type Natriuretic Peptide 4509H, Total Protein 7.2, Albumin 3.1L, Globulin 4.1, Albumin/Globulin Ratio 0.7L 08/13/16 08:15: White Blood Count 5.5, Red Blood Count 5.20, Hemoglobin 14.8, Hematocrit 47.4, Mean Corpuscular Volume 91, Mean Corpuscular Hemoglobin 28.4, Mean Corpuscular Hemoglobin Concent 31.2L, Red Cell Distribution Width 16.9H, Platelet Count 221 , Mean Platelet Volume 7.9, Neutrophils (%) (Auto) 64.8, Lymphocytes (%) (Auto) 23.7, Monocytes (%) (Auto) 9.4, Eosinophils (%) (Auto) 0.7, Basophils (%) (Auto ) 1.5 Current Medications Medications (Trade) Dose Ordered Sig/Morteza Route PRN Reason Start Time Stop Time Status Last Admin Dose Admin Acetaminophen (Tylenol) 650 mg Q4H PRN ORAL Mild Pain/Temp > 100.5 08/11/16 19:30 09/10/16 19:29 Albuterol/ Ipratropium (DuoNeb 0.5-3(2.5)mg/3ml) 3 ml Q4H PRN HHN Shortness of Breath 08/12/16 00:45 08/17/16 00:44 Amlodipine Besylate (Norvasc) 5 mg DAILY ORAL 08/12/16 20:30 09/11/16 20:29 08/13/16 10:11 Dextrose (Dextrose 50%) STAT PRN IV Hypoglycemia 08/11/16 19:30 09/10/16 19:29 Furosemide (Lasix) 40 mg THREE TIMES A DAY ORAL 08/11/16 23:30 09/10/16 23:29 08/13/16 18:00 Insulin Aspart (NovoLOG) BEFORE MEALS AND HS SUBQ 08/11/16 21:30 09/10/16 21:29 08/13/16 22:20 Lisinopril (Prinivil) 20 mg BID ORAL 08/13/16 09:00 09/12/16 08:59 08/13/16 18:00 Promethazine HCl/ Codeine (Phenergan with Codeine) 5 ml Q4H PRN ORAL For Cough 08/11/16 19:30 09/10/16 19:29 Temazepam (Restoril) 15 mg HSPRN PRN ORAL Insomnia 08/11/16 19:30 08/18/16 19:29 KENY JIMÉNEZ Aug 13, 2016 22:31
[2016-08-14] VITALS (7 sets, daily range): BP systolic 106–128; BP diastolic 65–89
[2016-08-14] MEDS: NovoLOG Insulin Flexpen SUBQ SCH ×4 (06:42→21:38)
[2016-08-14] MEDS: Lisinopril 20mg tab ORAL SCH ×2 (08:14→19:02)
[2016-08-14] MEDS: Furosemide 40mg tab ORAL SCH ×3 (08:14→18:59)
--- NOTE | 2016-08-14 12:18 | Diagnostic Imaging Report ---
Indication: DYSPNEA Technique: One view of the chest Comparison: 08/13/2016 Findings: There is improved right basilar opacity, likely reflecting decreased pleural fluid and/or consolidation, although some opacity persists. There is interim clearing of disease at the left lung base. Left lung and pleural space are currently clear. The heart is enlarged. Impression: Interim clearing of the left and partial improvement of right pleural and parenchymal disease, over one day
[2016-08-14 13:14] LABS: BASOPHILS % (AUTO) 1.4 % (0.0-2.0); EOSINOPHILS % (AUTO) 1.3 % (0.0-3.0); LYMPHOCYTES % (AUTO) 19.2 % (20.0-45.0); MEAN CORPUSCULAR HEMOGLOBIN 28.7 PG (27.0-31.0); MEAN CORPUSCULAR HGB CONC 31.3 G/DL (32.0-36.0); MEAN CORPUSCULAR VOLUME 92 FL (80-99); MEAN PLATELET VOLUME 9.1 FL (6.5-10.1); MONOCYTES % (AUTO) 12.4 % (1.0-10.0); NEUTROPHILS % (AUTO) 65.6 % (45.0-75.0); PLATELET COUNT 205 K/UL (150-450); RED CELL DISTRIBUTION WIDTH 17.1 % (11.6-14.8); WHITE BLOOD COUNT 6.3 K/UL (4.8-10.8)
[2016-08-14 13:31] LABS: ALBUMIN/GLOBULIN RATIO 0.7 (1.0-2.7); CALCIUM 8.9 mg/dL (8.6-10.2); CREATININE 1.5 mg/dL (0.7-1.2); POTASSIUM 3.8 mEQ/L (3.4-4.9); TOTAL PROTEIN 6.6 g/dL (6.6-8.7)
[2016-08-14 13:48] LABS: BILIRUBIN,DIRECT 1.9 mg/dL (0.1-0.3)
--- NOTE | 2016-08-14 16:29 | Pulmonology Progress Note ---
Assessment/Plan Problems: (1) Severe systolic congestive heart failure (2) CHF exacerbation (3) Cocaine abuse Assessment/Plan still tachycardic continue diuretic titrate fio2 to sat of 92% check electrolytes respiratory treatment cbc, bmp in am Subjective ROS Limited/Unobtainable: No Constitutional: Reports: no symptoms HEENT: Repors: no symptoms Allergies: Coded Allergies: No Known Allergies (Unverified , 09/20/15) Objective Last 24 Hour Vital Signs Date Time Temp Pulse Resp B/P Pulse Ox O2 Delivery O2 Flow Rate FiO2 08/14/16 13:00 97.0 66 20 111/75 96 Nasal Cannula 2.0 08/14/16 12:00 101 08/14/16 11:39 96.3 55 20 110/77 91 Room Air 08/14/16 08:14 93 127/89 08/14/16 08:14 127/89 08/14/16 08:08 97.0 93 19 127/89 100 Nasal Cannula 4.0 08/14/16 08:00 98 08/14/16 04:00 93 08/14/16 04:00 97.0 91 18 106/71 93 Room Air 08/14/16 00:00 94 08/14/16 00:00 97.5 94 17 107/65 99 Room Air 08/13/16 20:00 99 08/13/16 20:00 98.0 105 22 123/89 96 Room Air 08/13/16 18:00 111/80 Intake and Output 08/13/16 08/14/16 19:00 07:00 Intake Total 680 ml 400 ml Output Total 1000 ml Balance 680 ml -600 ml Intake Oral 680 ml 400 ml Output Urine Total 1000 ml # Voids 3 4 General Appearance: WD/WN HEENT: normocephalic, atraumatic Respiratory/Chest: chest wall non-tender, lungs clear Cardiovascular: normal peripheral pulses, normal rate Abdomen: normal bowel sounds Laboratory Tests 08/14/16 12:55: White Blood Count 6.3, Red Blood Count 4.60L, Hemoglobin 13.2L, Hematocrit 42.2 , Mean Corpuscular Volume 92, Mean Corpuscular Hemoglobin 28.7, Mean Corpuscular Hemoglobin Concent 31.3L, Red Cell Distribution Width 17.1H, Platelet Count 205, Mean Platelet Volume 9.1, Neutrophils (%) (Auto) 65.6, Lymphocytes (%) (Auto) 19.2L, Monocytes (%) (Auto) 12.4H, Eosinophils (%) (Auto ) 1.3, Basophils (%) (Auto) 1.4, Sodium Level 141, Potassium Level 3.8, Chloride Level 99, Carbon Dioxide Level 28, Anion Gap 14, Blood Urea Nitrogen 42H, Creatinine 1.5H, Estimat Glomerular Filtration Rate 57.0, Glucose Level 174H, Calcium Level 8.9, Total Bilirubin 2.9H, Direct Bilirubin 1.9H, Aspartate Amino Transf (AST/SGOT) 30, Alanine Aminotransferase (ALT/SGPT) 15, Alkaline Phosphatase 196H, Pro-B-Type Natriuretic Peptide 2481H, Total Protein 6.6, Albumin 2.8L, Globulin 3.8, Albumin/Globulin Ratio 0.7L Current Medications Medications (Trade) Dose Ordered Sig/Morteza Route PRN Reason Start Time Stop Time Status Last Admin Dose Admin Acetaminophen (Tylenol) 650 mg Q4H PRN ORAL Mild Pain/Temp > 100.5 08/11/16 19:30 09/10/16 19:29 Albuterol/ Ipratropium (DuoNeb 0.5-3(2.5)mg/3ml) 3 ml Q4H PRN HHN Shortness of Breath 08/12/16 00:45 08/17/16 00:44 Amlodipine Besylate (Norvasc) 5 mg DAILY ORAL 08/12/16 20:30 09/11/16 20:29 08/14/16 08:14 Dextrose (Dextrose 50%) STAT PRN IV Hypoglycemia 08/11/16 19:30 09/10/16 19:29 Furosemide (Lasix) 40 mg THREE TIMES A DAY ORAL 08/11/16 23:30 09/10/16 23:29 08/14/16 13:07 Insulin Aspart (NovoLOG) BEFORE MEALS AND HS SUBQ 08/11/16 21:30 09/10/16 21:29 08/14/16 11:11 Lisinopril (Prinivil) 20 mg BID ORAL 08/13/16 09:00 09/12/16 08:59 08/14/16 08:14 Promethazine HCl/ Codeine (Phenergan with Codeine) 5 ml Q4H PRN ORAL For Cough 08/11/16 19:30 09/10/16 19:29 Temazepam (Restoril) 15 mg HSPRN PRN ORAL Insomnia 08/11/16 19:30 08/18/16 19:29 KENY JIMÉNEZ Aug 14, 2016 16:29
--- NOTE | 2016-08-14 20:41 | Cardiology Progress Note ---
Assessment/Plan Assessment/Plan 1. Severe systolic heart failure, worsening, secondary to cocaine abuse. 2. Severe cardiomyopathy. 3. Pulmonary hypertension. 4. Cocaine abuse. 5. Diabetes mellitus , out of control. 6. Chronic kidney disease. 7. Severe tricuspid regurgitation. 8. Severe mitral regurgitation. 9. Chronic obstructive pulmonary disease he admited to not being noncompliant with meds at home he appear better today bp is better renal fucnetion improved with diuretics needs 30 day supply of meds on dc as he indicated he did not have any meds to take tele sinu ekg unchanged Subjective ROS Limited/Unobtainable: Yes Objective Last 24 Hour Vital Signs Date Time Temp Pulse Resp B/P Pulse Ox O2 Delivery O2 Flow Rate FiO2 08/14/16 19:33 100 18 Room Air 21 08/14/16 19:02 128/77 08/14/16 16:00 97.5 104 21 128/77 97 Nasal Cannula 2.0 08/14/16 13:00 97.0 66 20 111/75 96 Nasal Cannula 2.0 08/14/16 12:00 101 08/14/16 11:39 96.3 55 20 110/77 91 Room Air 08/14/16 08:14 93 127/89 08/14/16 08:14 127/89 08/14/16 08:08 97.0 93 19 127/89 100 Nasal Cannula 4.0 08/14/16 08:00 98 08/14/16 04:00 93 08/14/16 04:00 97.0 91 18 106/71 93 Room Air 08/14/16 00:00 94 08/14/16 00:00 97.5 94 17 107/65 99 Room Air General Appearance: no apparent distress Cardiovascular: normal rate, regular rhythm Respiratory/Chest: lungs clear, normal breath sounds Abdomen: soft, no organomegaly Extremities: no swelling Intake and Output 08/13/16 08/14/16 19:00 07:00 Intake Total 680 ml 400 ml Output Total 1000 ml Balance 680 ml -600 ml Intake Oral 680 ml 400 ml Output Urine Total 1000 ml # Voids 3 4 Laboratory Tests Test 08/14/16 12:55 White Blood Count 6.3 K/UL (4.8-10.8) Red Blood Count 4.60 M/UL (4.70-6.10) L Hemoglobin 13.2 G/DL (14.2-18.0) L Hematocrit 42.2 % (42.0-52.0) Mean Corpuscular Volume 92 FL (80-99) Mean Corpuscular Hemoglobin 28.7 PG (27.0-31.0) Mean Corpuscular Hemoglobin Concent 31.3 G/DL (32.0-36.0) L Red Cell Distribution Width 17.1 % (11.6-14.8) H Platelet Count 205 K/UL (150-450) Mean Platelet Volume 9.1 FL (6.5-10.1) Neutrophils (%) (Auto) 65.6 % (45.0-75.0) Lymphocytes (%) (Auto) 19.2 % (20.0-45.0) L Monocytes (%) (Auto) 12.4 % (1.0-10.0) H Eosinophils (%) (Auto) 1.3 % (0.0-3.0) Basophils (%) (Auto) 1.4 % (0.0-2.0) Sodium Level 141 mEQ/L (135-145) Potassium Level 3.8 mEQ/L (3.4-4.9) Chloride Level 99 mEQ/L (98-107) Carbon Dioxide Level 28 mEQ/L (20-30) Anion Gap 14 (5-15) Blood Urea Nitrogen 42 mg/dL (7-23) H Creatinine 1.5 mg/dL (0.7-1.2) H Estimat Glomerular Filtration Rate 57.0 mL/min (>60) Glucose Level 174 mg/dL (74-106) H Calcium Level 8.9 mg/dL (8.6-10.2) Total Bilirubin 2.9 mg/dL (0.0-1.2) H Direct Bilirubin 1.9 mg/dL (0.1-0.3) H Aspartate Amino Transf (AST/SGOT) 30 U/L (5-40) Alanine Aminotransferase (ALT/SGPT) 15 U/L (3-41) Alkaline Phosphatase 196 U/L (40-129) H Pro-B-Type Natriuretic Peptide 2481 pg/mL (0-125) H Total Protein 6.6 g/dL (6.6-8.7) Albumin 2.8 g/dL (3.5-5.2) L Globulin 3.8 g/dL Albumin/Globulin Ratio 0.7 (1.0-2.7) JULIOCESAR HARO Aug 14, 2016 20:40
[2016-08-15 00:22] VITALS: BP 127/90
[2016-08-15 04:19] VITALS: BP 119/73
[2016-08-15] MEDS: NovoLOG Insulin Flexpen SUBQ SCH ×3 (06:38→17:14)
[2016-08-15 08:06] VITALS: BP 143/94
[2016-08-15] MEDS: Lisinopril 20mg tab ORAL SCH ×2 (08:26→17:13)
[2016-08-15] MEDS: Furosemide 40mg tab ORAL SCH ×3 (08:26→17:13)
[2016-08-15 08:52] LABS: BASOPHILS % (AUTO) 1.6 % (0.0-2.0); EOSINOPHILS % (AUTO) 1.2 % (0.0-3.0); LYMPHOCYTES % (AUTO) 21.2 % (20.0-45.0); MEAN CORPUSCULAR HEMOGLOBIN 29.1 PG (27.0-31.0); MEAN CORPUSCULAR HGB CONC 31.3 G/DL (32.0-36.0); MEAN CORPUSCULAR VOLUME 93 FL (80-99); MEAN PLATELET VOLUME 9.6 FL (6.5-10.1); MONOCYTES % (AUTO) 12.3 % (1.0-10.0); NEUTROPHILS % (AUTO) 63.8 % (45.0-75.0); PLATELET COUNT 202 K/UL (150-450); RED BLOOD COUNT 4.51 M/UL (4.70-6.10); WHITE BLOOD COUNT 5.7 K/UL (4.8-10.8)
[2016-08-15 09:02] LABS: TROPONIN I < 0.30 ng/mL (<=0.30)
[2016-08-15 09:06] LABS: ALBUMIN/GLOBULIN RATIO 0.7 (1.0-2.7); CALCIUM 8.6 mg/dL (8.6-10.2); CREATININE 1.5 mg/dL (0.7-1.2); POTASSIUM 4.4 mEQ/L (3.4-4.9); TOTAL PROTEIN 6.8 g/dL (6.6-8.7)
[2016-08-15 09:21] LABS: BILIRUBIN,DIRECT 1.3 mg/dL (0.1-0.3)
[2016-08-15 11:29] VITALS: BP 147/62
--- NOTE | 2016-08-15 13:20 | Pulmonology Progress Note ---
Assessment/Plan Problems: (1) Severe systolic congestive heart failure (2) CHF exacerbation (3) Cocaine abuse Assessment/Plan continue diuretic titrate fio2 to sat of 92% check electrolytes respiratory treatment dc home with oral meds Subjective ROS Limited/Unobtainable: No Interval Events: doing better Allergies: Coded Allergies: No Known Allergies (Unverified , 09/20/15) Objective Last 24 Hour Vital Signs Date Time Temp Pulse Resp B/P Pulse Ox O2 Delivery O2 Flow Rate FiO2 08/15/16 11:29 96.9 100 17 147/62 96 Nasal Cannula 3.0 08/15/16 08:27 104 143/94 08/15/16 08:26 143/94 08/15/16 08:06 96.9 104 17 143/94 96 Room Air 08/15/16 08:00 99 08/15/16 07:32 99 20 Room Air 08/15/16 04:29 101 08/15/16 04:19 98.2 95 21 119/73 97 Room Air 08/15/16 00:22 98.7 80 20 127/90 98 Room Air 08/15/16 00:00 101 08/14/16 20:00 97.9 100 19 124/74 99 Nasal Cannula 2.0 08/14/16 20:00 106 08/14/16 19:33 100 18 Room Air 21 08/14/16 19:02 128/77 08/14/16 16:00 108 08/14/16 16:00 97.5 104 21 128/77 97 Nasal Cannula 2.0 Intake and Output 08/14/16 08/15/16 19:00 07:00 Intake Total 770 ml 300 ml Output Total 500 ml 1000 ml Balance 270 ml -700 ml Intake Oral 770 ml 300 ml Output Urine Total 500 ml 1000 ml General Appearance: WD/WN HEENT: normocephalic Respiratory/Chest: chest wall non-tender, lungs clear Cardiovascular: normal peripheral pulses, normal rate Abdomen: normal bowel sounds, soft, non tender Extremities: no cyanosis Skin: no rash 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 Laboratory Tests 08/15/16 07:50: White Blood Count 5.7, Red Blood Count 4.51L, Hemoglobin 13.1L, Hematocrit 41.9L , Mean Corpuscular Volume 93, Mean Corpuscular Hemoglobin 29.1, Mean Corpuscular Hemoglobin Concent 31.3L, Red Cell Distribution Width 17.0H, Platelet Count 202, Mean Platelet Volume 9.6, Neutrophils (%) (Auto) 63.8, Lymphocytes (%) (Auto) 21.2, Monocytes (%) (Auto) 12.3H, Eosinophils (%) (Auto) 1.2, Basophils (%) (Auto) 1.6, Sodium Level 143, Potassium Level 4.4, Chloride Level 100, Carbon Dioxide Level 29, Anion Gap 14, Blood Urea Nitrogen 37H, Creatinine 1.5H, Estimat Glomerular Filtration Rate 57.0, Glucose Level 250H, Calcium Level 8.6, Total Bilirubin 2.4H, Direct Bilirubin 1.3H, Aspartate Amino Transf (AST/SGOT) 31, Alanine Aminotransferase (ALT/SGPT) 15, Alkaline Phosphatase 241H, Troponin I < 0.30, Pro-B-Type Natriuretic Peptide 2028H, Total Protein 6.8, Albumin 3.0L, Globulin 3.8, Albumin/Globulin Ratio 0.7L Current Medications Medications (Trade) Dose Ordered Sig/Morteza Route PRN Reason Start Time Stop Time Status Last Admin Dose Admin Acetaminophen (Tylenol) 650 mg Q4H PRN ORAL Mild Pain/Temp > 100.5 08/11/16 19:30 09/10/16 19:29 Albuterol/ Ipratropium (DuoNeb 0.5-3(2.5)mg/3ml) 3 ml Q4H PRN HHN Shortness of Breath 08/12/16 00:45 08/17/16 00:44 Amlodipine Besylate (Norvasc) 5 mg DAILY ORAL 08/12/16 20:30 09/11/16 20:29 08/15/16 08:27 Dextrose (Dextrose 50%) STAT PRN IV Hypoglycemia 08/11/16 19:30 09/10/16 19:29 Furosemide (Lasix) 40 mg THREE TIMES A DAY ORAL 08/11/16 23:30 09/10/16 23:29 08/15/16 12:03 Insulin Aspart (NovoLOG) BEFORE MEALS AND HS SUBQ 08/11/16 21:30 09/10/16 21:29 08/15/16 12:03 Lisinopril (Prinivil) 20 mg BID ORAL 08/13/16 09:00 09/12/16 08:59 08/15/16 08:26 Promethazine HCl/ Codeine (Phenergan with Codeine) 5 ml Q4H PRN ORAL For Cough 08/11/16 19:30 09/10/16 19:29 Temazepam (Restoril) 15 mg HSPRN PRN ORAL Insomnia 08/11/16 19:30 08/18/16 19:29 KENY JIÉMNEZ Aug 15, 2016 13:20
[2016-08-15 15:54] VITALS: BP 115/83
[2016-08-15] MEDS ORDERED: HUMALOG100 UNIT/1 SUBQ (16:15)
[2016-08-15 17:13] VITALS: BP 115/83
--- NOTE | 2016-08-16 16:34 | Discharge Summary ---
Discharge Summary Hospital Course Date of Admission Aug 11, 2016 at 14:05 Date of Discharge Aug 15, 2016 at 18:15 Admitting Diagnosis Congestive Heart Failure SILVANA Mcdaniel is a 66 year old male who was admitted on Aug 11, 2016 at 14:05 for Congestive Gheart Failure Hospital Course [id number] Discharge Discharge Disposition Patient was discharged to Home (01) Discharge Diagnoses: Brittanie Wing NP Aug 16, 2016 16:34
--- NOTE | 2016-08-17 00:18 | Discharge Summary 2 SIG ---
DATE OF ADMISSION: 08/11/2016 DATE OF DISCHARGE: 08/15/2016 [facility] SPECIALIST: Nolberto Aden M.D. BRIEF HOSPITAL COURSE: The patient is a 66-year-old male with history of cardiomyopathy with ejection fraction of less than 20%. 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 He was given aspirin and nitrates on the field. On evaluation at ED, EKG with sinus tachycardia and premature ventricular contractions and x-rays with congestive heart failure. Initial troponin was negative. Due to the patient's risk factors, the patient was admitted for further management. Dr. Aden was consulted. Cardiac enzymes were monitored. BP remained elevated. He admitted to be noncompliant with his medications. Systolic heart failure was secondary to cocaine abuse. His renal function was improved with diuretics. He was given respiratory treatments and serial x-rays were done and showed internal bleeding of the left and partial right pleural and parenchymal disease. He was eventually discharged to home. FINAL DIAGNOSES: 1. Acute on chronic systolic congestive heart failure. 2. Congestive heart failure exacerbation. 3. Cocaine abuse. 4. Severe cardiomyopathy. 5. Pulmonary hypertension. 6. Diabetes mellitus out of control. 7. Chronic kidney disease. 8. Severe tricuspid regurgitation. 9. Severe mitral regurgitation. 10. Chronic obstructive pulmonary disease. Ирина Thurston M.D. I have been assigned to dictate discharge summary on this account and I was not involved in the patient's management. Brittanie Wing N.P. DR: JOSE FRANCISCO JOB#: [id number] CC:
--- NOTE | 2016-08-20 11:47 | Cardiology Report ---
APPROVED REPORT EKG Measurement Heart [id number] [id number] Normal sinus rhythm Possible Left atrial enlargement Left axis deviation Inferior infarct, age undetermined Anterior infarct, age undetermined Abnormal ECG
== END 2016-08-15 18:15 | disposition home or self-care (01) | DRG 194 ==
LOC: EDBD 12:58 → EMR 13:31 → 2E 14:05 → EDBEDREQ 15:07 → 2E 08-12 12:08
DX: I50.23 Acute on chronic systolic (congestive) heart failure (principal); I42.9 Cardiomyopathy, unspecified; I27.2 Other secondary pulmonary hypertension; E11.65 Type 2 diabetes mellitus with hyperglycemia; F14.188 Cocaine abuse with other cocaine-induced disorder; J44.9 Chronic obstructive pulmonary disease, unspecified; I08.1 Rheumatic disorders of both mitral and tricuspid valves; I12.9 Hypertensive chronic kidney disease with stage 1 through stage 4 chronic kidney disease, or unspecified chronic kidney disease; N18.9 Chronic kidney disease, unspecified; Z91.14 Patient's other noncompliance with medication regimen
CPT/HCPCS: 36415; 70450; 71010; 80053; 81003; 82248; 82550; 82962; 83735; 83880; 84100; 84484; 85025; 85610; 85730; 93005; 94640; 94664; J1815; J7620

== ENCOUNTER 2016-08-19 11:14 | Inpatient (IN) | payer MEDICAID ==
[2016-08-19] VITALS (7 sets, daily range): BP systolic 119–141; BP diastolic 81–102
[~2016-08-19] VITALS: Ht 185.4 cm; Wt 100.7 kg
[~2016-08-19 11:14] MED LIST changes: -Albuterol ud Inhalation ONE; +HUMALOG100 UNIT/1 SUBQ; -Ipratropium 0.02% Inh Soln 2.5ml UD ONE; -Nitroglycerin 2% oint pkt TOPIC ONE
[2016-08-19] MEDS ORDERED: Albuterol ud Inhalation HHN ONE (12:30)
[2016-08-19 13:10] LABS: BASOPHILS % (AUTO) 3.7 % (0.0-2.0); EOSINOPHILS % (AUTO) 0.6 % (0.0-3.0); LYMPHOCYTES % (AUTO) 16.7 % (20.0-45.0); MEAN CORPUSCULAR HGB CONC 31.5 G/DL (32.0-36.0); MEAN CORPUSCULAR VOLUME 92 FL (80-99); MEAN PLATELET VOLUME 10.5 FL (6.5-10.1); MONOCYTES % (AUTO) 14.7 % (1.0-10.0); NEUTROPHILS % (AUTO) 64.3 % (45.0-75.0); PLATELET COUNT 189 K/UL (150-450); RED BLOOD COUNT 4.53 M/UL (4.70-6.10); RED CELL DISTRIBUTION WIDTH 16.8 % (11.6-14.8); WHITE BLOOD COUNT 5.3 K/UL (4.8-10.8)
[2016-08-19 13:50] LABS: ALANINE AMINOTRANSFERASE 16 U/L (3-41); ALBUMIN/GLOBULIN RATIO 0.7 (1.0-2.7); ANION GAP 16 (5-15); ASPARTATE AMINO TRANSFERASE 39 U/L (5-40); CALCIUM 8.4 mg/dL (8.6-10.2); CARBON DIOXIDE 25 mEQ/L (20-30); CHLORIDE 97 mEQ/L (98-107); CREATININE 1.1 mg/dL (0.7-1.2); GLOMERULAR FILTRATION RATE > 60 mL/min (>60); HEMOLYSIS 107; POTASSIUM 4.3 mEQ/L (3.4-4.9); SODIUM 138 mEQ/L (135-145); TOTAL PROTEIN 7.4 g/dL (6.6-8.7)
[2016-08-19 13:52] LABS: TROPONIN I < 0.30 ng/mL (<=0.30)
--- NOTE | 2016-08-19 13:57 | Diagnostic Imaging Report ---
Indication: SOB Technique: One view of the chest Comparison: 08/14/2016 Findings: Heart is enlarged. The lungs and pleural spaces are clear. No significant interim change Impression: Cardiomegaly. No acute process
--- NOTE | 2016-08-19 14:02 | Emergency Room Report ---
History of Present Illness General Chief Complaint: Upper Respiratory Illness Source: Patient Present Illness HPI Patient is a 66-year-old male who presented after increased difficulty breathing. Patient had gradual onset of symptoms. Patient recently hospitalized for CHF and COPD. Patient was noted to have been taking his diuretics but has not been urinating well. He denied any fever. He denied any chest pain. Had increased orthopnea.The patient was noted to have prior history of cardiomyopathy secondary to cocaine abuse.The patient was reportedly having an ejection fraction of less than 20%. Allergies: Coded Allergies: No Known Allergies (Unverified , 09/20/15) Patient History Past Medical History: see triage record Reviewed Nursing Documentation: PMH: Agreed, PSxH: Agreed Nursing Documentation-PMH Hx Cardiac Problems: Yes Hx Hypertension: Yes Hx Pacemaker: No Hx Asthma: Yes Hx COPD: Yes Hx Diabetes: Yes Hx Cancer: No Hx Gastrointestinal Problems: No Hx Dialysis: No Hx Neurological Problems: No Hx Cerebrovascular Accident: No Hx Transient Ischemic Attacks: No Hx Seizures: No Review of Systems All Other Systems: negative except mentioned in HPI Physical Exam Vital Signs Date Time Temp Pulse Resp B/P Pulse Ox O2 Delivery O2 Flow Rate FiO2 08/19/16 12:04 97.5 98 20 119/102 100 Room Air 08/19/16 12:55 2.0 Sp02 EP Interpretation: reviewed, normal General Appearance: normal inspection, well appearing, alert, GCS 15, mild distress Head: atraumatic ENT: normal ENT inspection, hearing grossly normal, normal voice Neck: normal inspection, full range of motion, supple, no bony tend, other - jvd Respiratory: normal inspection, no respiratory distress, no retraction Cardiovascular #1: regular rate, rhythm, edema - 4+Edema Gastrointestinal: normal inspection, normal bowel sounds, non tender, soft, no guarding, no hernia Genitourinary: no CVA tenderness Musculoskeletal: normal inspection, back normal, normal range of motion Neurologic: normal inspection, alert, oriented x3, responsive, speech normal Psychiatric: normal inspection, judgement/insight normal, mood/affect normal Skin: normal inspection, normal color, no rash Medical Decision Making Diagnostic Impression: Primary Impression: CHF exacerbation Additional Impression: Severe systolic congestive heart failure ER Course Patient presented for shortness of breath. Differential included but was not limited to anemia, pneumonia, pneumothorax, myocardial infarction, pericardial effusion, congestive heart failure, acidosisBecause of complexity of patient's case laboratory testing and imaging studies were ordered. Chest x-ray one view interpreted by me showed cardiomegaly with a small right pleural effusion.The patient was given Lasix as well as breathing treatment.Patient was noted to have some continued difficulty breathing. Patient was discussed with Dr. sadler for inpatient treatment. Labs Test 08/19/16 12:52 White Blood Count 5.3 K/UL (4.8-10.8) Red Blood Count 4.53 M/UL (4.70-6.10) Hemoglobin 13.1 G/DL (14.2-18.0) Hematocrit 41.7 % (42.0-52.0) Mean Corpuscular Volume 92 FL (80-99) Mean Corpuscular Hemoglobin 29.0 PG (27.0-31.0) Mean Corpuscular Hemoglobin Concent 31.5 G/DL (32.0-36.0) Red Cell Distribution Width 16.8 % (11.6-14.8) Platelet Count 189 K/UL (150-450) Mean Platelet Volume 10.5 FL (6.5-10.1) Neutrophils (%) (Auto) 64.3 % (45.0-75.0) Lymphocytes (%) (Auto) 16.7 % (20.0-45.0) Monocytes (%) (Auto) 14.7 % (1.0-10.0) Eosinophils (%) (Auto) 0.6 % (0.0-3.0) Basophils (%) (Auto) 3.7 % (0.0-2.0) Sodium Level 138 mEQ/L (135-145) Potassium Level 4.3 mEQ/L (3.4-4.9) Chloride Level 97 mEQ/L (98-107) Carbon Dioxide Level 25 mEQ/L (20-30) Anion Gap 16 (5-15) Blood Urea Nitrogen 30 mg/dL (7-23) Creatinine 1.1 mg/dL (0.7-1.2) Estimat Glomerular Filtration Rate > 60 mL/min (>60) Glucose Level 323 mg/dL (74-106) Calcium Level 8.4 mg/dL (8.6-10.2) Total Bilirubin 3.0 mg/dL (0.0-1.2) Aspartate Amino Transf (AST/SGOT) 39 U/L (5-40) Alanine Aminotransferase (ALT/SGPT) 16 U/L (3-41) Alkaline Phosphatase 202 U/L (40-129) Total Creatine Kinase 105 U/L (38-174) Troponin I < 0.30 ng/mL (<=0.30) Pro-B-Type Natriuretic Peptide 1896 pg/mL (0-125) Total Protein 7.4 g/dL (6.6-8.7) Albumin 3.1 g/dL (3.5-5.2) Globulin 4.3 g/dL Albumin/Globulin Ratio 0.7 (1.0-2.7) EKG Diagnostic Results Rate: normal Rhythm: NSR ST Segments: no acute changes Chest X-Ray Diagnostic Results EP Interpretation: No Findings: no effusion, no pneumothorax, no acute cardiopulmonary disease, other - cm Number of Views: 1 Last Vital Signs Date Time Temp Pulse Resp B/P Pulse Ox O2 Delivery O2 Flow Rate FiO2 08/19/16 12:55 97 21 100 Nasal Cannula 2.0 08/19/16 12:07 119/102 08/19/16 12:04 97.5 Status: unchanged Disposition: ADMITTED INPATIENT Condition: Serious Referrals: [facility],REFERRING (PCP) Randell Coto Aug 19, 2016 14:02
[2016-08-19 14:13] LABS: CKMB 2.1 ng/mL (< 6.7)
[2016-08-19 14:17] LABS: BILIRUBIN,DIRECT 1.6 mg/dL (0.1-0.3)
[2016-08-19] MEDS ORDERED: ZESTRIL20 MG ORAL (16:10)
[2016-08-19] MEDS ORDERED: FUROSEMIDE40 MG ORAL (16:11)
[2016-08-19] MEDS ORDERED: AMLODIPINE BESYL5 MG ORAL (16:12)
[2016-08-19] MEDS ORDERED: Miralax 17gm pkt ORAL PRN (16:15)
[2016-08-19] MEDS ORDERED: ASPIRIN81 MG ORAL (16:16)
[2016-08-19] MEDS: NovoLOG Insulin Flexpen SUBQ SCH ×2 (16:57→21:01)
[2016-08-19] MEDS: Heparin 5000 units/ml inj SUBQ SCH (21:01)
--- NOTE | 2016-08-19 23:38 | History and Physical ---
History of Present Illness General Date patient seen: Aug 21, 2016 Reason for Hospitalization: Upper Respiratory Illness Present Illness HPI 66-year-old male with hx of end stage heart disease, COPD presented with CC of difficulty breathing. Patient had gradual onset of symptoms. Patient recently hospitalized for CHF and COPD. He is admitted again for acute exacerbation of CHF. Allergies: Coded Allergies: No Known Allergies (Unverified , 09/20/15) Medication History Scheduled Amlodipine Besylate* (Amlodipine Besylate*), 5 MG ORAL DAILY, (Reported) Aspirin* (Aspirin*), 81 MG ORAL DAILY, (Reported) Furosemide* (Lasix*), 40 MG ORAL TWICE A DAY, (Reported) Insulin Lispro (Humalog), 4 SUBQ PRIOR TO MEALS, (Reported) Lisinopril* (Zestril*), 20 MG ORAL BID, (Reported) Discontinued Medications Furosemide* (Lasix*), 40 MG ORAL DAILY Discontinued Reason: Medication dose changed Furosemide* (Lasix*), 20 MG ORAL DAILY, (Reported) Discontinued Reason: Medication dose changed Insulin Aspart* (Novolog*), 0 SUBQ BEFORE MEALS AND HS Discontinued Reason: Medication dose changed Unable to Obtain Medications (Unable To Obtain Meds), Unknown Dose, (Reported) Discontinued Reason: Therapy completed Unable to Obtain Medications (Unable To Obtain Meds), (Reported) Discontinued Reason: Therapy completed Patient History Healthcare decision maker Resuscitation status Advanced Directive on File Past Medical/Surgical History Past Medical/Surgical History: (1) Cocaine abuse (2) Chronic kidney disease (3) Severe systolic congestive heart failure Review of Systems All Other Systems: negative except mentioned in HPI Physical Exam General Appearance: WD/WN Lines, tubes and drains: peripheral HEENT: normocephalic Neck: non-tender Genitourinary/Rectal: normal genital exam Extremities: normal range of motion Last 24 Hour Vital Signs Date Time Temp Pulse Resp B/P Pulse Ox O2 Delivery O2 Flow Rate FiO2 08/19/16 22:31 101 21 125/81 100 Room Air 08/19/16 20:38 92 21 137/86 100 Room Air 2.0 08/19/16 18:08 92 21 131/91 100 Room Air 2.0 08/19/16 16:05 95 21 128/95 100 Room Air 08/19/16 14:21 100 21 131/91 100 Room Air 08/19/16 12:55 97 21 100 Nasal Cannula 2.0 08/19/16 12:50 94 20 Room Air 08/19/16 12:50 94 20 100 Room Air 08/19/16 12:07 20 119/102 100 Room Air 08/19/16 12:07 98 20 Room Air 08/19/16 12:04 97.5 98 20 119/102 100 Room Air Laboratory Tests Test 08/19/16 12:52 White Blood Count 5.3 K/UL (4.8-10.8) Red Blood Count 4.53 M/UL (4.70-6.10) L Hemoglobin 13.1 G/DL (14.2-18.0) L Hematocrit 41.7 % (42.0-52.0) L Mean Corpuscular Volume 92 FL (80-99) Mean Corpuscular Hemoglobin 29.0 PG (27.0-31.0) Mean Corpuscular Hemoglobin Concent 31.5 G/DL (32.0-36.0) L Red Cell Distribution Width 16.8 % (11.6-14.8) H Platelet Count 189 K/UL (150-450) Mean Platelet Volume 10.5 FL (6.5-10.1) H Neutrophils (%) (Auto) 64.3 % (45.0-75.0) Lymphocytes (%) (Auto) 16.7 % (20.0-45.0) L Monocytes (%) (Auto) 14.7 % (1.0-10.0) H Eosinophils (%) (Auto) 0.6 % (0.0-3.0) Basophils (%) (Auto) 3.7 % (0.0-2.0) H Sodium Level 138 mEQ/L (135-145) Potassium Level 4.3 mEQ/L (3.4-4.9) Chloride Level 97 mEQ/L (98-107) L Carbon Dioxide Level 25 mEQ/L (20-30) Anion Gap 16 (5-15) H Blood Urea Nitrogen 30 mg/dL (7-23) H Creatinine 1.1 mg/dL (0.7-1.2) Estimat Glomerular Filtration Rate > 60 mL/min (>60) Glucose Level 323 mg/dL (74-106) H Calcium Level 8.4 mg/dL (8.6-10.2) L Total Bilirubin 3.0 mg/dL (0.0-1.2) H Direct Bilirubin 1.6 mg/dL (0.1-0.3) H Aspartate Amino Transf (AST/SGOT) 39 U/L (5-40) Alanine Aminotransferase (ALT/SGPT) 16 U/L (3-41) Alkaline Phosphatase 202 U/L (40-129) H Total Creatine Kinase 105 U/L (38-174) Creatine Kinase MB 2.1 ng/mL (< 6.7) Creatine Kinase MB Relative Index 2.0 Troponin I < 0.30 ng/mL (<=0.30) Pro-B-Type Natriuretic Peptide 1896 pg/mL (0-125) H Total Protein 7.4 g/dL (6.6-8.7) Albumin 3.1 g/dL (3.5-5.2) L Globulin 4.3 g/dL Albumin/Globulin Ratio 0.7 (1.0-2.7) L Height (Feet): 6 Height (Inches): 1.00 Weight (Pounds): 180 Medications Current Medications Medications (Trade) Dose Ordered Sig/Morteza Route PRN Reason Start Time Stop Time Status Last Admin Dose Admin Acetaminophen (Tylenol) 650 mg Q4H PRN ORAL Fever 08/19/16 16:15 09/18/16 16:14 Albuterol/ Ipratropium (DuoNeb 0.5-3(2.5)mg/3ml) 3 ml EVERY 4 HOURS PRN HHN Shortness of Breath 08/19/16 16:15 08/24/16 16:14 Dextrose (Dextrose 50%) STAT PRN IV Hypoglycemia 08/19/16 16:15 09/18/16 16:14 Furosemide (Lasix) 40 mg EVERY 8 HOURS IV 08/19/16 22:00 09/18/16 21:59 08/19/16 21:03 Heparin Sodium (Porcine) (Heparin 5000 units/ml) 5,000 units EVERY 12 HOURS SUBQ 08/19/16 21:00 09/18/16 20:59 08/19/16 21:01 Insulin Aspart (NovoLOG) BEFORE MEALS AND HS SUBQ 08/19/16 16:30 09/18/16 16:29 08/19/16 21:01 Ondansetron HCl (Zofran) 4 mg Q6H PRN IVP Nausea & Vomiting 08/19/16 16:15 09/18/16 16:14 Polyethylene Glycol (Miralax) 17 gm DAILYPRN PRN ORAL Constipation 08/19/16 16:15 09/18/16 16:14 Temazepam (Restoril) 15 mg HSPRN PRN ORAL Insomnia 08/19/16 16:15 08/26/16 16:14 Assessment/Plan Problem List: (1) CHF exacerbation ICD Codes: I50.9 - Heart failure, unspecified SNOMED: 30565609 (2) Severe systolic congestive heart failure ICD Codes: I50.20 - Unspecified systolic (congestive) heart failure SNOMED: 70997402, 632815208 (3) Pulmonary hypertension ICD Codes: I27.2 - Other secondary pulmonary hypertension SNOMED: 23489059 (4) Dyspnea ICD Codes: R06.00 - Dyspnea, unspecified SNOMED: 179994343 Assessment/Plan diuretics check intake /output optimize cardiac meds KENY JIMÉNEZ Aug 19, 2016 23:38
[2016-08-20] VITALS (10 sets, daily range): BP systolic 106–132; BP diastolic 71–94
[2016-08-20] MEDS: NovoLOG Insulin Flexpen SUBQ SCH ×4 (06:30→21:56)
[2016-08-20] MEDS ORDERED: Heparin 5000 units/ml inj ONE (08:27)
[2016-08-20] MEDS: Heparin 5000 units/ml inj SUBQ SCH ×3 (08:30→21:55)
--- NOTE | 2016-08-20 09:44 | Diagnostic Imaging Report ---
Indication: DYSPNEA Technique: One view of the chest Comparison: 08/19/2016 Findings: The heart is enlarged. There is new or increased bilateral perihilar interstitial congestion and basilar hazy opacities. Pleural spaces appear to be clear. Impression: New or increased bilateral perihilar interstitial congestion and basilar hazy opacities, since previous day Cardiomegaly
[2016-08-20 10:11] LABS: BASOPHILS % (AUTO) 1.4 % (0.0-2.0); EOSINOPHILS % (AUTO) 1.1 % (0.0-3.0); LYMPHOCYTES % (AUTO) 24.7 % (20.0-45.0); MEAN CORPUSCULAR HEMOGLOBIN 28.7 PG (27.0-31.0); MEAN CORPUSCULAR HGB CONC 31.2 G/DL (32.0-36.0); MEAN CORPUSCULAR VOLUME 92 FL (80-99); MEAN PLATELET VOLUME 9.9 FL (6.5-10.1); MONOCYTES % (AUTO) 12.1 % (1.0-10.0); NEUTROPHILS % (AUTO) 60.8 % (45.0-75.0); PLATELET COUNT 193 K/UL (150-450); RED BLOOD COUNT 4.49 M/UL (4.70-6.10); RED CELL DISTRIBUTION WIDTH 16.4 % (11.6-14.8); WHITE BLOOD COUNT 5.4 K/UL (4.8-10.8)
[2016-08-20 10:36] LABS: ANION GAP 14 (5-15); CARBON DIOXIDE 29 mEQ/L (20-30); CHLORIDE 100 mEQ/L (98-107); CREATININE 1.1 mg/dL (0.7-1.2); GLOMERULAR FILTRATION RATE > 60 mL/min (>60); HEMOLYSIS 1; PHOSPHORUS 3.4 mg/dL (2.5-4.8); POTASSIUM 3.4 mEQ/L (3.4-4.9); SODIUM 143 mEQ/L (135-145); TROPONIN I < 0.30 ng/mL (<=0.30)
[2016-08-20] MEDS: DuoNeb 0.5-3(2.5)mg/3ml neb HHN PRN (10:55)
--- NOTE | 2016-08-20 11:22 | Cardiology Report ---
APPROVED REPORT EKG Measurement Heart [id number] [place] [id number] [id number] Sinus rhythm with premature atrial complexes Possible Left atrial enlargement Left axis deviation Inferior infarct, age undetermined T wave abnormality, consider lateral ischemia Prolonged QT Abnormal ECG
--- NOTE | 2016-08-20 13:29 | Cardiology Progress Note ---
Subjective Subjective chf cm renal insuf htn dm consider snf placment for a while to help prevent need t o readmist acei brenda , ccb [id number] Objective Last 24 Hour Vital Signs Date Time Temp Pulse Resp B/P Pulse Ox O2 Delivery O2 Flow Rate FiO2 08/20/16 13:23 98.0 92 18 121/79 100 Nasal Cannula 2.0 28 08/20/16 12:30 98.0 92 18 121/79 100 Nasal Cannula 2.0 08/20/16 11:30 92 18 121/79 100 Nasal Cannula 2.0 08/20/16 10:55 100 20 100 Nasal Cannula 2.0 28 08/20/16 10:50 99 20 100 Nasal Cannula 2.0 28 08/20/16 10:30 96 20 109/79 96 Nasal Cannula 2.0 08/20/16 09:30 104 18 119/94 99 Nasal Cannula 2.0 08/20/16 08:30 98 22 128/89 99 Nasal Cannula 2.0 08/20/16 07:30 97.8 99 20 125/92 98 Room Air 08/20/16 05:32 97.5 101 21 120/87 100 Room Air 08/19/16 23:15 97.5 98 21 137/81 100 Room Air 2.0 08/19/16 22:31 101 21 125/81 100 Room Air 08/19/16 20:38 92 21 137/86 100 Room Air 2.0 08/19/16 18:08 92 21 131/91 100 Room Air 2.0 08/19/16 16:05 95 21 128/95 100 Room Air 08/19/16 14:21 100 21 131/91 100 Room Air Intake and Output 08/19/16 08/20/16 19:00 07:00 Intake Total 200 ml Output Total 500 ml 1250 ml Balance -300 ml -1250 ml Intake Oral 200 ml Output Urine Total 500 ml 1250 ml Laboratory Tests Test 08/20/16 09:58 White Blood Count 5.4 K/UL (4.8-10.8) Red Blood Count 4.49 M/UL (4.70-6.10) L Hemoglobin 12.9 G/DL (14.2-18.0) L Hematocrit 41.3 % (42.0-52.0) L Mean Corpuscular Volume 92 FL (80-99) Mean Corpuscular Hemoglobin 28.7 PG (27.0-31.0) Mean Corpuscular Hemoglobin Concent 31.2 G/DL (32.0-36.0) L Red Cell Distribution Width 16.4 % (11.6-14.8) H Platelet Count 193 K/UL (150-450) Mean Platelet Volume 9.9 FL (6.5-10.1) Neutrophils (%) (Auto) 60.8 % (45.0-75.0) Lymphocytes (%) (Auto) 24.7 % (20.0-45.0) Monocytes (%) (Auto) 12.1 % (1.0-10.0) H Eosinophils (%) (Auto) 1.1 % (0.0-3.0) Basophils (%) (Auto) 1.4 % (0.0-2.0) Sodium Level 143 mEQ/L (135-145) Potassium Level 3.4 mEQ/L (3.4-4.9) Chloride Level 100 mEQ/L (98-107) Carbon Dioxide Level 29 mEQ/L (20-30) Anion Gap 14 (5-15) Blood Urea Nitrogen 27 mg/dL (7-23) H Creatinine 1.1 mg/dL (0.7-1.2) Estimat Glomerular Filtration Rate > 60 mL/min (>60) Glucose Level 183 mg/dL (74-106) #H Calcium Level 9.0 mg/dL (8.6-10.2) Phosphorus Level 3.4 mg/dL (2.5-4.8) Troponin I < 0.30 ng/mL (<=0.30) Albumin 3.4 g/dL (3.5-5.2) JULIOCESAR HARO Aug 20, 2016 13:29
[2016-08-20] MEDS: Lisinopril 2.5mg tab ORAL SCH (14:02)
[2016-08-20] MEDS: Spironolactone 25mg tab ORAL SCH (14:02)
--- NOTE | 2016-08-20 22:29 | Consultation ---
DATE OF CONSULTATION: 08/20/2016 CARDIOLOGY CONSULTATION REFERRING PHYSICIAN: Ирина Thurston M.D. REASON FOR REFERRAL: Congestive heart failure. HISTORY OF PRESENT ILLNESS: The patient is an elderly gentleman with multiple medical problems, who presented to the hospital after having discharge a day earlier. He tells me he got home and had short of breath who came back to the hospital. Really he does not have any chest pain or pressure. There is no PND or orthopnea. He is short of breath at rest or with activity and he did not have pain or pressure type symptoms. He has no dizziness on standing. No heart pounding or palpitations. PAST MEDICAL HISTORY: Positive for history of multiple hospitalizations here and at the for congestive heart failure. He has had a history of COPD, acute on chronic congestive heart failure with cardiomyopathy, severe pulmonary hypertension, renal insufficiency, diabetes mellitus, and history of cocaine use. His last hospitalization here back in July for congestive heart failure, acute on chronic and history of severe cardiomyopathy and chronic kidney disease. ALLERGIES: He is reportedly not allergic to medications. SOCIAL HISTORY: Denies smoking, alcohol, or drugs. Despite the fact that previously he had cocaine use and a positive drug screen. REVIEW OF SYSTEMS: Gastrointestinal: Denies. Genitourinary: Denies. Pulmonary: Denies. Constitutional: Denies. Neurologic: Denies. PHYSICAL EXAMINATION: GENERAL: The patient to be elderly gentleman, no apparent distress. NECK: Supple. No jugular venous distention. LUNGS: Decreased breath sounds in the bases. CARDIAC: Regular rate and rhythm. He feels there is a holosystolic regurgitant murmur noted. ABDOMEN: Soft and nontender. Positive bowel sounds. EXTREMITIES: There is 2+ edema of lower extremities distally below the knee. NEUROLOGIC: He is awake, alert, responsive, no apparent distress. LABORATORY AND DIAGNOSTIC DATA: White count 5.4, hemoglobin 12.9, and platelet count 193,000. Sodium is 142, potassium 3.4, chloride 100, bicarbonate 29, BUN of 27, creatinine 1.1, and glucose of 182. Troponin on two separate occasions have been less than 0.03. His albumin 3.4. His proBNP was 1896 yesterday. Coagulations was not checked during this hospitalization. His electrocardiogram shows sinus rhythm with leftward axis and T-wave inversions in I, aVL, V5 and V6. ASSESSMENT AND PLAN: 1. Chronic congestive heart failure. 2. Cardiomyopathy. 3. Pulmonary hypertension. 4. Cocaine abuse history. 5. Diabetes mellitus. 6. Chronic kidney disease. 7. Severe mitral regurgitation and tricuspid regurgitation. 8. Chronic obstructive pulmonary disease exacerbation. PLAN: Dr. Thurston, this patient was seen in cardiac consultation. The patient will be started back on his prior medications that he was receiving, lisinopril 20 mg apparently. He was taking, I am not sure how compliant. He has been on Lasix 40 mg and he is on amlodipine 5 mg and he is also on Humalog insulin. Fluid sodium restriction. Consider placement in a long-term facility to prevent admissions. Nolberto Aden M.D. DR: CARTER JOB#: [id number] CC:
[2016-08-21 00:19] VITALS: BP 142/81
[2016-08-21 04:16] VITALS: BP 139/78
[2016-08-21] MEDS: NovoLOG Insulin Flexpen SUBQ SCH ×4 (06:30→22:34)
[2016-08-21 07:54] LABS: MAGNESIUM 1.4 mg/dL (1.7-2.5)
[2016-08-21 08:00] VITALS: BP 128/72
[2016-08-21 08:05] LABS: TROPONIN I < 0.30 ng/mL (<=0.30)
--- NOTE | 2016-08-21 08:27 | Cardiology Report ---
APPROVED REPORT EXAM: Two-dimensional and M-mode echocardiogram with Doppler and color Doppler. INDICATION Left ventricular function M-Mode DIMENSIONS IVSd0.8 (0.7-1.1cm)Left Atrium (MM)5.8 (1.6-4.0cm) LVDd6.5 (3.5-5.6cm)Aortic Root2.7 (2.0-3.7cm) PWd1.1 (0.7-1.1cm)Aortic Cusp Exc.1.7 (1.5-2.0cm) LVDs6.1 (2.5-4.0cm) PWs1.3 cm Severe left ventricular enlargement. Global left ventricular hypokinesis, septal dyskinesis. Left ventricular ejection fraction estimated to be 20-25 %. No evidence of left ventricular hypertrophy. Small posterior pericardial effusion. Moderate bi-atrial enlargement by 2D. Focal aortic valve sclerosis with adequate cusp excursion Thickened mitral valve leaflets with normal excursion. Mitral annulus and aortic root calcification. Pulmonic valve is well visualized. Normal tricuspid valve structure. IVC dilated at 2.8cm with no physiologic collapse. RA pressure of 20mmHg. A color flow and spectral Doppler study was performed and revealed: Mild aortic regurgitation. Severe mitral regurgitation. Left ventricular diastolic dysfunction grade 3. Moderate tricuspid regurgitation. Tricuspid systolic velocities suggests peak right ventricular systolic pressure of 42 mmHg Consistent with mild pulmonary hypertension.
[2016-08-21] MEDS: Spironolactone 25mg tab ORAL SCH (08:44)
[2016-08-21] MEDS: Lisinopril 2.5mg tab ORAL SCH (08:45)
[2016-08-21] MEDS: Heparin 5000 units/ml inj SUBQ SCH ×2 (08:48→22:35)
[2016-08-21 12:00] VITALS: BP 134/68
--- NOTE | 2016-08-21 13:19 | Diagnostic Imaging Report ---
APPROVED REPORT CPT Code: 66805 Present Symptoms Lower Extremity Edema: Bilateral Shortness of breath BILATERAL: Imaging reveals a patent deep venous system bilaterally. There is no evidence of thrombus within the femoral, popliteal or tibial segments. The greater saphenous veins are also within normal limits. Doppler indicates normal spontaneous flow within these segments.
[2016-08-21] MEDS: DuoNeb 0.5-3(2.5)mg/3ml neb HHN PRN (15:14)
[2016-08-21 16:00] VITALS: BP 128/70
--- NOTE | 2016-08-21 16:12 | Pulmonology Progress Note ---
Assessment/Plan Problems: (1) CHF exacerbation (2) Severe systolic congestive heart failure (3) Pulmonary hypertension (4) Dyspnea Assessment/Plan improving gradually titrate fio2 monitor intake output Subjective ROS Limited/Unobtainable: No Interval Events: late note for 08/20, still short of breath Allergies: Coded Allergies: No Known Allergies (Unverified , 09/20/15) Objective Last 24 Hour Vital Signs Date Time Temp Pulse Resp B/P Pulse Ox O2 Delivery O2 Flow Rate FiO2 08/21/16 15:14 94 20 100 Nasal Cannula 2.0 28 08/21/16 15:10 89 20 96 Nasal Cannula 2.0 28 08/21/16 12:00 97.0 86 16 134/68 98 Room Air 86 08/21/16 12:00 100 08/21/16 10:04 101 20 Room Air 1.0 24 08/21/16 08:45 128/72 08/21/16 08:00 101 08/21/16 08:00 97.0 69 18 128/72 97 Room Air 70 08/21/16 04:16 98.5 72 20 139/78 94 Room Air 08/21/16 04:00 101 08/21/16 00:19 98.8 66 21 142/81 92 Room Air 08/20/16 20:00 97.7 99 18 132/71 100 Room Air 08/20/16 20:00 109 Intake and Output 08/20/16 08/21/16 19:00 07:00 Intake Total 250 ml Output Total 150 ml 800 ml Balance 100 ml -800 ml Intake Oral 250 ml Output Urine Total 150 ml 800 ml # Voids 1 General Appearance: no acute distress HEENT: atraumatic, PERRL Respiratory/Chest: decreased breath sounds Cardiovascular: normal peripheral pulses, normal rate Abdomen: normal bowel sounds, soft, non tender Genitourinary: normal external genitalia Skin: no rash Laboratory Tests 08/21/16 06:55: Magnesium Level 1.4L, Troponin I < 0.30, Pro-B-Type Natriuretic Peptide 1672H Current Medications Medications (Trade) Dose Ordered Sig/Morteza Route PRN Reason Start Time Stop Time Status Last Admin Dose Admin Acetaminophen (Tylenol) 650 mg Q4H PRN ORAL Fever 08/19/16 16:15 09/18/16 16:14 Albuterol/ Ipratropium (DuoNeb 0.5-3(2.5)mg/3ml) 3 ml EVERY 4 HOURS PRN HHN Shortness of Breath 08/19/16 16:15 08/24/16 16:14 08/21/16 15:14 Dextrose (Dextrose 50%) STAT PRN IV Hypoglycemia 08/19/16 16:15 09/18/16 16:14 Furosemide (Lasix) 40 mg EVERY 8 HOURS IV 08/19/16 22:00 09/18/16 21:59 08/21/16 14:17 Heparin Sodium (Porcine) (Heparin 5000 units/ml) 5,000 units EVERY 12 HOURS SUBQ 08/19/16 21:00 09/18/16 20:59 08/21/16 08:48 Insulin Aspart (NovoLOG) BEFORE MEALS AND HS SUBQ 08/19/16 16:30 09/18/16 16:29 08/21/16 12:01 Lisinopril (Zestril) 2.5 mg DAILY ORAL 08/20/16 14:00 09/19/16 13:59 08/21/16 08:45 Magnesium Sulfate (Magnesium Sulfate 1gm/100ml) 100 ml @ 100 mls/hr Q1H IVPB 08/21/16 16:00 08/21/16 17:59 Ondansetron HCl (Zofran) 4 mg Q6H PRN IVP Nausea & Vomiting 08/19/16 16:15 09/18/16 16:14 Polyethylene Glycol (Miralax) 17 gm DAILYPRN PRN ORAL Constipation 08/19/16 16:15 09/18/16 16:14 Spironolactone 25 mg 25 mg DAILY ORAL 08/20/16 14:00 09/19/16 13:59 08/21/16 08:44 Temazepam (Restoril) 15 mg HSPRN PRN ORAL Insomnia 08/19/16 16:15 08/26/16 16:14 KENY JIMÉNEZ Aug 21, 2016 16:12
--- NOTE | 2016-08-21 16:13 | Pulmonology Progress Note ---
Assessment/Plan Problems: (1) CHF exacerbation (2) Severe systolic congestive heart failure (3) Pulmonary hypertension (4) Dyspnea Assessment/Plan repeat cxr, bnp in am improving gradually titrate fio2 monitor intake output Subjective ROS Limited/Unobtainable: No Allergies: Coded Allergies: No Known Allergies (Unverified , 09/20/15) Objective Last 24 Hour Vital Signs Date Time Temp Pulse Resp B/P Pulse Ox O2 Delivery O2 Flow Rate FiO2 08/21/16 15:14 94 20 100 Nasal Cannula 2.0 28 08/21/16 15:10 89 20 96 Nasal Cannula 2.0 28 08/21/16 12:00 97.0 86 16 134/68 98 Room Air 86 08/21/16 12:00 100 08/21/16 10:04 101 20 Room Air 1.0 24 08/21/16 08:45 128/72 08/21/16 08:00 101 08/21/16 08:00 97.0 69 18 128/72 97 Room Air 70 08/21/16 04:16 98.5 72 20 139/78 94 Room Air 08/21/16 04:00 101 08/21/16 00:19 98.8 66 21 142/81 92 Room Air 08/20/16 20:00 97.7 99 18 132/71 100 Room Air 08/20/16 20:00 109 Intake and Output 08/20/16 08/21/16 19:00 07:00 Intake Total 250 ml Output Total 150 ml 800 ml Balance 100 ml -800 ml Intake Oral 250 ml Output Urine Total 150 ml 800 ml # Voids 1 General Appearance: WD/WN HEENT: normocephalic, anicteric Respiratory/Chest: chest wall non-tender, normal breath sounds Cardiovascular: normal peripheral pulses, normal rate Abdomen: normal bowel sounds, soft, non tender Extremities: no clubbing Skin: no rash 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 II-XII grossly normal Lymphatic: no neck adenopathy Laboratory Tests 08/21/16 06:55: Magnesium Level 1.4L, Troponin I < 0.30, Pro-B-Type Natriuretic Peptide 1672H Current Medications Medications (Trade) Dose Ordered Sig/Morteza Route PRN Reason Start Time Stop Time Status Last Admin Dose Admin Acetaminophen (Tylenol) 650 mg Q4H PRN ORAL Fever 08/19/16 16:15 09/18/16 16:14 Albuterol/ Ipratropium (DuoNeb 0.5-3(2.5)mg/3ml) 3 ml EVERY 4 HOURS PRN HHN Shortness of Breath 08/19/16 16:15 08/24/16 16:14 08/21/16 15:14 Dextrose (Dextrose 50%) STAT PRN IV Hypoglycemia 08/19/16 16:15 09/18/16 16:14 Furosemide (Lasix) 40 mg EVERY 8 HOURS IV 08/19/16 22:00 09/18/16 21:59 08/21/16 14:17 Heparin Sodium (Porcine) (Heparin 5000 units/ml) 5,000 units EVERY 12 HOURS SUBQ 08/19/16 21:00 09/18/16 20:59 08/21/16 08:48 Insulin Aspart (NovoLOG) BEFORE MEALS AND HS SUBQ 08/19/16 16:30 09/18/16 16:29 08/21/16 12:01 Lisinopril (Zestril) 2.5 mg DAILY ORAL 08/20/16 14:00 09/19/16 13:59 08/21/16 08:45 Magnesium Sulfate (Magnesium Sulfate 1gm/100ml) 100 ml @ 100 mls/hr Q1H IVPB 08/21/16 16:00 08/21/16 17:59 Ondansetron HCl (Zofran) 4 mg Q6H PRN IVP Nausea & Vomiting 08/19/16 16:15 09/18/16 16:14 Polyethylene Glycol (Miralax) 17 gm DAILYPRN PRN ORAL Constipation 08/19/16 16:15 09/18/16 16:14 Spironolactone 25 mg 25 mg DAILY ORAL 08/20/16 14:00 09/19/16 13:59 08/21/16 08:44 Temazepam (Restoril) 15 mg HSPRN PRN ORAL Insomnia 08/19/16 16:15 08/26/16 16:14 KENY JIMÉNEZ Aug 21, 2016 16:13
--- NOTE | 2016-08-21 18:41 | Cardiology Progress Note ---
Assessment/Plan Assessment/Plan 1. Chronic congestive heart failure. 2. Cardiomyopathy. 3. Pulmonary hypertension. 4. Cocaine abuse history. 5. Diabetes mellitus. 6. Chronic kidney disease. 7. Severe mitral regurgitation and tricuspid regurgitation. 8. Chronic obstructive pulmonary disease exacerbation. acei will increase dose iv diuretic bb now on aldactone watch bp increase meds as bp allow na / fludi restriction consider snf to prevent recurrent er presentation Subjective Cardiovascular: Denies: chest pain, lightheadedness, palpitations Respiratory: Denies: SOB with excertion, orthopnea, shortness of breath Gastrointestinal/Abdominal: Denies: abdominal pain Genitourinary: Denies: burning Objective Last 24 Hour Vital Signs Date Time Temp Pulse Resp B/P Pulse Ox O2 Delivery O2 Flow Rate FiO2 08/21/16 16:00 96.8 92 18 128/70 Nasal Cannula 2.0 98 08/21/16 15:14 94 20 100 Nasal Cannula 2.0 28 08/21/16 15:10 89 20 96 Nasal Cannula 2.0 28 08/21/16 12:00 97.0 86 16 134/68 98 Room Air 86 08/21/16 12:00 100 08/21/16 10:04 101 20 Room Air 1.0 24 08/21/16 08:45 128/72 08/21/16 08:00 101 08/21/16 08:00 97.0 69 18 128/72 97 Room Air 70 08/21/16 04:16 98.5 72 20 139/78 94 Room Air 08/21/16 04:00 101 08/21/16 00:19 98.8 66 21 142/81 92 Room Air 08/20/16 20:00 97.7 99 18 132/71 100 Room Air 08/20/16 20:00 109 General Appearance: no apparent distress, alert Neck: supple Cardiovascular: normal rate, regular rhythm Respiratory/Chest: lungs clear Abdomen: normal bowel sounds, non tender, soft Extremities: severe edema Intake and Output 08/20/16 08/21/16 19:00 07:00 Intake Total 250 ml Output Total 150 ml 800 ml Balance 100 ml -800 ml Intake Oral 250 ml Output Urine Total 150 ml 800 ml # Voids 1 Laboratory Tests Test 08/21/16 06:55 Magnesium Level 1.4 mg/dL (1.7-2.5) L Troponin I < 0.30 ng/mL (<=0.30) Pro-B-Type Natriuretic Peptide 1672 pg/mL (0-125) H JULIOCESAR GONSALEZ Aug 21, 2016 18:41
[2016-08-21] MEDS ORDERED: Lisinopril 10mg tab ORAL ONE (19:00)
[2016-08-21 20:00] VITALS: BP 128/61
[2016-08-22] VITALS (7 sets, daily range): BP systolic 105–135; BP diastolic 53–81
[2016-08-22] MEDS: DuoNeb 0.5-3(2.5)mg/3ml neb HHN PRN ×2 (01:22→11:05)
[2016-08-22] MEDS: NovoLOG Insulin Flexpen SUBQ SCH ×4 (06:40→21:07)
[2016-08-22 09:41] LABS: BASOPHILS % (AUTO) 1.9 % (0.0-2.0); EOSINOPHILS % (AUTO) 1.4 % (0.0-3.0); LYMPHOCYTES % (AUTO) 24.4 % (20.0-45.0); MEAN CORPUSCULAR HEMOGLOBIN 28.7 PG (27.0-31.0); MEAN CORPUSCULAR HGB CONC 31.3 G/DL (32.0-36.0); MEAN CORPUSCULAR VOLUME 92 FL (80-99); MONOCYTES % (AUTO) 18.7 % (1.0-10.0); NEUTROPHILS % (AUTO) 53.7 % (45.0-75.0); PLATELET COUNT 191 K/UL (150-450); RED CELL DISTRIBUTION WIDTH 16.4 % (11.6-14.8); WHITE BLOOD COUNT 5.2 K/UL (4.8-10.8)
[2016-08-22] MEDS: Spironolactone 25mg tab ORAL SCH (10:03)
[2016-08-22] MEDS: Lisinopril 2.5mg tab ORAL SCH ×2 (10:03→17:19)
[2016-08-22] MEDS: Heparin 5000 units/ml inj SUBQ SCH ×2 (10:07→21:00)
[2016-08-22 11:22] LABS: ALANINE AMINOTRANSFERASE 14 U/L (3-41); ALBUMIN/GLOBULIN RATIO 0.7 (1.0-2.7); ANION GAP 17 (5-15); ASPARTATE AMINO TRANSFERASE 25 U/L (5-40); CALCIUM 8.9 mg/dL (8.6-10.2); CARBON DIOXIDE 26 mEQ/L (20-30); CHLORIDE 102 mEQ/L (98-107); CREATININE 1.1 mg/dL (0.7-1.2); GLOMERULAR FILTRATION RATE > 60 mL/min (>60); HEMOLYSIS 0; POTASSIUM 3.1 mEQ/L (3.4-4.9); SODIUM 145 mEQ/L (135-145); TOTAL PROTEIN 7.1 g/dL (6.6-8.7)
[2016-08-22 11:41] LABS: BILIRUBIN,DIRECT 1.7 mg/dL (0.1-0.3)
--- NOTE | 2016-08-22 14:38 | Diagnostic Imaging Report ---
Indication: Dyspnea Comparison: 08/20/16 A single view chest radiograph was obtained. Findings: The lungs are better inflated. There is mild vascular congestion suspected and mild cardio megaly noted. Impression: Mild CHF may be present. Probably no change accounting for this some differences in lung volume
--- NOTE | 2016-08-22 16:06 | Pulmonology Progress Note ---
Assessment/Plan Problems: (1) CHF exacerbation (2) Severe systolic congestive heart failure (3) Pulmonary hypertension (4) Dyspnea Assessment/Plan improving gradually titrate fio2 monitor intake output pt wants to go home with his daughter Subjective ROS Limited/Unobtainable: No Interval Events: comfortable, nad, wants to go home Allergies: Coded Allergies: No Known Allergies (Unverified , 09/20/15) Objective Last 24 Hour Vital Signs Date Time Temp Pulse Resp B/P Pulse Ox O2 Delivery O2 Flow Rate FiO2 08/22/16 12:00 83 08/22/16 11:26 96.9 87 20 105/80 93 Room Air 08/22/16 11:15 98 20 100 Nasal Cannula 2.0 28 08/22/16 11:05 83 20 96 Nasal Cannula 2.0 28 08/22/16 10:03 135/78 08/22/16 10:02 82 135/78 08/22/16 08:00 93 08/22/16 07:57 96.6 82 20 135/78 94 Room Air 08/22/16 04:18 98.5 62 19 116/70 95 Room Air 08/22/16 04:00 98 08/22/16 01:32 98 20 100 Nasal Cannula 2.0 28 08/22/16 01:23 83 20 96 Nasal Cannula 2.0 28 08/22/16 00:00 97 08/22/16 00:00 97.8 58 20 112/53 94 Room Air 08/21/16 22:33 89 128/61 08/21/16 20:00 97.5 89 21 128/61 96 Nasal Cannula 2.0 08/21/16 20:00 107 08/21/16 19:41 128/70 08/21/16 19:15 98 20 Room Air Intake and Output 08/21/16 08/22/16 19:00 07:00 Intake Total 640 ml 600 ml Output Total 1570 ml Balance 640 ml -970 ml Intake Oral 640 ml 600 ml Output Urine Total 1570 ml # Voids 3 3 Objective General Appearance: WD/WN Lines, tubes and drains: peripheral, central line HEENT: normocephalic, atraumatic Neck: non-tender, normal alignment Respiratory/Chest: chest wall non-tender, lungs clear Cardiovascular/Chest: normal peripheral pulses, normal rate Abdomen: normal bowel sounds Genitourinary/Rectal: normal genital exam, normal prostate exam Extremities: normal range of motion Skin Exam: normal pigmentation Laboratory Tests 08/22/16 08:50: White Blood Count 5.2, Red Blood Count 4.40L, Hemoglobin 12.7L, Hematocrit 40.4L , Mean Corpuscular Volume 92, Mean Corpuscular Hemoglobin 28.7, Mean Corpuscular Hemoglobin Concent 31.3L, Red Cell Distribution Width 16.4H, Platelet Count 191, Mean Platelet Volume 10.0, Neutrophils (%) (Auto) 53.7, Lymphocytes (%) (Auto) 24.4, Monocytes (%) (Auto) 18.7H, Eosinophils (%) (Auto) 1.4, Basophils (%) (Auto) 1.9, Sodium Level 145, Potassium Level 3.1L, Chloride Level 102, Carbon Dioxide Level 26, Anion Gap 17H, Blood Urea Nitrogen 28H, Creatinine 1.1, Estimat Glomerular Filtration Rate > 60, Glucose Level 161H, Calcium Level 8.9, Total Bilirubin 3.2H, Direct Bilirubin 1.7H, Aspartate Amino Transf (AST/SGOT) 25, Alanine Aminotransferase (ALT/SGPT) 14, Alkaline Phosphatase 181H, Pro-B-Type Natriuretic Peptide 1660H, Total Protein 7.1, Albumin 3.0L, Globulin 4.1, Albumin/Globulin Ratio 0.7L Current Medications Medications (Trade) Dose Ordered Sig/Morteza Route PRN Reason Start Time Stop Time Status Last Admin Dose Admin Acetaminophen (Tylenol) 650 mg Q4H PRN ORAL Fever 08/19/16 16:15 09/18/16 16:14 Albuterol/ Ipratropium (DuoNeb 0.5-3(2.5)mg/3ml) 3 ml EVERY 4 HOURS PRN HHN Shortness of Breath 08/19/16 16:15 08/24/16 16:14 08/22/16 11:05 Carvedilol 3.125 mg 3.125 mg EVERY 12 HOURS ORAL 08/21/16 21:00 09/20/16 20:59 08/22/16 10:02 Dextrose (Dextrose 50%) STAT PRN IV Hypoglycemia 08/19/16 16:15 09/18/16 16:14 Furosemide (Lasix) 40 mg EVERY 8 HOURS IV 08/19/16 22:00 09/18/16 21:59 08/22/16 06:37 Heparin Sodium (Porcine) (Heparin 5000 units/ml) 5,000 units EVERY 12 HOURS SUBQ 08/19/16 21:00 09/18/16 20:59 08/22/16 10:07 Insulin Aspart (NovoLOG) BEFORE MEALS AND HS SUBQ 08/19/16 16:30 09/18/16 16:29 08/22/16 12:07 Lisinopril (Zestril) 5 mg BID ORAL 08/22/16 09:00 09/21/16 08:59 08/22/16 10:03 Ondansetron HCl (Zofran) 4 mg Q6H PRN IVP Nausea & Vomiting 08/19/16 16:15 09/18/16 16:14 Polyethylene Glycol (Miralax) 17 gm DAILYPRN PRN ORAL Constipation 08/19/16 16:15 09/18/16 16:14 Potassium Chloride (KCl 10mEq/100ml Premix) 100 ml @ 100 mls/hr Q1H IVPB 08/22/16 16:00 08/22/16 21:59 Spironolactone (Aldactone) 25 mg DAILY ORAL 08/20/16 14:00 09/19/16 13:59 08/22/16 10:03 Temazepam (Restoril) 15 mg HSPRN PRN ORAL Insomnia 08/19/16 16:15 08/26/16 16:14 KENY JIMÉNEZ Aug 22, 2016 16:06
[2016-08-22] MEDS ORDERED: Tubing IV Secondary IV ONE (18:21)
[2016-08-22] MEDS ORDERED: NS 275ml ONE (18:21)
[2016-08-23 00:40] VITALS: BP 114/80
[2016-08-23 04:18] VITALS: BP 119/75
[2016-08-23] MEDS: NovoLOG Insulin Flexpen SUBQ SCH (06:05)
[2016-08-23 08:06] VITALS: BP 103/73
[2016-08-23] MEDS: Heparin 5000 units/ml inj SUBQ SCH (09:00)
[2016-08-23] MEDS: Lisinopril 2.5mg tab ORAL SCH (09:00)
[2016-08-23] MEDS: Spironolactone 25mg tab ORAL SCH (09:00)
--- NOTE | 2016-08-25 18:24 | Cardiology Report ---
APPROVED REPORT EKG Measurement Heart [id number] Sinus rhythm with occasional premature ventricular complexes Left axis deviation Nonspecific T wave abnormality Prolonged QT Abnormal ECG
--- NOTE | 2016-08-26 13:32 | Discharge Summary ---
Discharge Summary Hospital Course Date of Admission Aug 19, 2016 at 14:53 Date of Discharge Aug 23, 2016 at 09:00 Admitting Diagnosis CHF,COPD EXACEBRATION HPI Burton Mcdaniel is a 66 year old male who was admitted on Aug 19, 2016 at 14:53 for Congestive Heart Failure,Chronic Obstructive Hospital Course dc summary #[id number] Discharge Medications Continued Medications: Amlodipine Besylate* (Amlodipine Besylate*) 5 Mg Tablet 5 MG ORAL DAILY, TAB Furosemide* (Lasix*) 40 Mg Tablet 40 MG ORAL TWICE A DAY, TAB 0 Refills Insulin Lispro (Humalog) 100 Unit/1 Ml Vial 4 SUBQ PRIOR TO MEALS, #1 UNITS 0 Refills Lisinopril* (Zestril*) 20 Mg Tablet 20 MG ORAL BID, TAB Discharge Condition Upon Discharge: stable Discharge Disposition Patient was discharged to Home (01) Discharge Diagnoses: Discharge Instructions Discharge Instructions Special Instructions I have been assigned to complete a D/C Summary on this account. I was not involved in the patient management Lizzie Paulson NP ([facility]) Aug 26, 2016 13:31
--- NOTE | 2016-08-27 02:39 | Discharge Summary 2 SIG ---
DATE OF ADMISSION: 08/19/2016 DATE OF DISCHARGE: 08/23/2016 REASON FOR ADMISSION: 66-year-old male presented to the emergency room with increased shortness of breath, getting gradually worse. The patient was recently hospitalized for congestive heart failure and chronic obstructive pulmonary disease exacerbation. The patient reported taking diuretic, but not urinating well. He denied fever or chills. He denied chest pain, palpitations but reported increased orthopnea. The patient with a history of cardiomyopathy secondary to cocaine abuse. Persistent ejection fraction around 20%. First troponin in the emergency room was negative. Chest x-ray revealed no evidence of acute cardiopulmonary disease, but was consistent with cardiomegaly. Mild chronic insufficiency was noted. EKG revealed sinus rhythm with T-wave inversion. The patient was admitted to telemetry floor for further management. ADMITTING DIAGNOSES: 1. Dyspnea. 2. Systolic congestive heart failure exacerbation. 3. Cardiomyopathy. 4. History of cocaine abuse. HOSPITAL STAY: The patient was admitted to telemetry floor. Cardiology consult was requested. Supplemental oxygen and pulmonary toilet provided as needed. The patient was started with medical treatment for systolic heart failure including diuretic and SINDI inhibitor. Diuretic dose was titrated. In addition to Lasix, Aldactone was added. Renal parameters and electrolytes as well as intake and output were closely monitored . Blood pressure was managed with calcium channel shea and SINDI inhibitor. No beta-shea due to the history of cocaine abuse and congestive heart failure exacerbation. Blood sugar was managed with a sliding scale of insulin and remained stable. Magnesium and potassium were replaced. Chest x-ray and Pro BNP were trending, essentially no change. Clinically however, the patient improved. Less shortness of breath. No orthopnea. Echocardiogram on this admission revealed ejection fraction of 20% to 25% and right ventricular systolic pressure of 42 consistent with mild pulmonary hypertension as well as severe mitral regurgitation and moderate tricuspid regurgitation. Troponin x2 were negative. Venous duplex bilateral lower extremities was negative for evidence for acute DVT. Fluid and sodium restriction were implemented. Test Engine Mechanic closely followed. Echocardiogram with sinus rhythm with leftward axis and T-wave inversion in leads 1, aVL, V5 and V6. Recommended continued medical management for congestive heart failure. The patient was counseled on avoidance of street drugs. Test Engine Mechanic cleared for discharge. Test Engine Mechanic recommended to arrange short-term placement for long-term to avoid recurrent hospitalizations, however, the patient declined and wanted to go home with his daughter. Blood sugar was managed with sliding scale of insulin. DISCHARGE DIAGNOSES: 1. Systolic congestive heart failure exacerbation. 2. Cardiomyopathy secondary to cocaine abuse. 3. History of cocaine abuse. 4. Hypertension. 5. Mild pulmonary hypertension. 6. Diabetes mellitus. 7. Severe valvular disease: severe mitral regurgitation and moderate tricuspid regurgitation. 8. Chronic kidney disease. 9. Electrolyte imbalances (hyperkalemia and hypomagnesemia). DISCHARGE INSTRUCTIONS: The patient was discharged home. Follow up with the primary medical doctor next week. Reinforce compliance with medication regimen. Ирина Thurston M.D. I have been assigned to dictate discharge summary on this account and I was not involved in the patient's management. Lizzie [facility]) N.PCharlette DR: ANDRÉS JOB#: [id number] CC: KRISTIN
== END 2016-08-23 09:00 | disposition home or self-care (01) | DRG 194 ==
LOC: EMR 12:11 → 2E 14:53 → EDBEDREQ 16:26
DX: I50.23 Acute on chronic systolic (congestive) heart failure (principal); E11.8 Type 2 diabetes mellitus with unspecified complications; J44.1 Chronic obstructive pulmonary disease with (acute) exacerbation; I27.2 Other secondary pulmonary hypertension; I42.9 Cardiomyopathy, unspecified; F14.288 Cocaine dependence with other cocaine-induced disorder; E83.42 Hypomagnesemia; N18.9 Chronic kidney disease, unspecified; E11.9 Type 2 diabetes mellitus without complications; I08.1 Rheumatic disorders of both mitral and tricuspid valves; I12.9 Hypertensive chronic kidney disease with stage 1 through stage 4 chronic kidney disease, or unspecified chronic kidney disease; E87.5 Hyperkalemia
CPT/HCPCS: 36415; 71010; 80048; 80053; 80069; 82248; 82550; 82553; 82962; 83735; 83880; 84484; 85025; 93005; 93306; 93970; 94640; 94664; J1815; J7620; J8499

== ENCOUNTER 2016-08-31 22:49 | Inpatient (IN) | payer MEDICAID ==
[~2016-08-31] VITALS: Ht 185.4 cm; Wt 99.8 kg
[~2016-08-31 22:49] MED LIST changes: +AMLODIPINE BESYL5 MG ORAL; +ASPIRIN81 MG ORAL; +ZESTRIL20 MG ORAL
[2016-08-31] MEDS ORDERED: METOPROLOL SUCC25 MG ORAL (23:08)
[2016-08-31] MEDS ORDERED: ATORVASTATIN CA40 MG ORAL (23:08)
[2016-08-31] MEDS ORDERED: FUROSEMIDE80 M1 ORAL (23:08)
[2016-08-31] MEDS ORDERED: LISINOPRIL20 MG ORAL (23:08)
[2016-08-31] MEDS ORDERED: Ipratropium 0.02% Inh Soln 2.5ml UD HHN ONE (23:15)
[2016-08-31] MEDS ORDERED: Albuterol ud Inhalation HHN ONE (23:15)
[2016-08-31 23:47] VITALS: BP 124/88
[2016-08-31 23:57] LABS: BASOPHILS % (AUTO) 3.4 % (0.0-2.0); EOSINOPHILS % (AUTO) 1.8 % (0.0-3.0); LYMPHOCYTES % (AUTO) 18.7 % (20.0-45.0); MEAN CORPUSCULAR HEMOGLOBIN 25.6 PG (27.0-31.0); MEAN CORPUSCULAR VOLUME 91 FL (80-99); MONOCYTES % (AUTO) 14.7 % (1.0-10.0); NEUTROPHILS % (AUTO) 61.3 % (45.0-75.0); PLATELET COUNT 172 K/UL (150-450); RED BLOOD COUNT 4.79 M/UL (4.70-6.10); RED CELL DISTRIBUTION WIDTH 16.5 % (11.6-14.8); WHITE BLOOD COUNT 5.3 K/UL (4.8-10.8)
[2016-09-01] VITALS (7 sets, daily range): BP systolic 122–149; BP diastolic 82–101
[2016-09-01 00:11] LABS: ALANINE AMINOTRANSFERASE 12 U/L (3-41); ALBUMIN/GLOBULIN RATIO 0.8 (1.0-2.7); ANION GAP 17 (5-15); ASPARTATE AMINO TRANSFERASE 26 U/L (5-40); CALCIUM 9.2 mg/dL (8.6-10.2); CARBON DIOXIDE 26 mEQ/L (20-30); CHLORIDE 100 mEQ/L (98-107); CREATININE 1.1 mg/dL (0.7-1.2); GLOMERULAR FILTRATION RATE > 60 mL/min (>60); HEMOLYSIS 15; POTASSIUM 3.6 mEQ/L (3.4-4.9); SODIUM 143 mEQ/L (135-145); TOTAL PROTEIN 7.7 g/dL (6.6-8.7)
[2016-09-01 00:13] LABS: REFLEX LACTIC ACID YES OR NO YES
[2016-09-01 00:14] LABS: TROPONIN I < 0.30 ng/mL (<=0.30)
[2016-09-01 00:33] LABS: BILIRUBIN,DIRECT 1.5 mg/dL (0.1-0.3)
--- NOTE | 2016-09-01 00:57 | Emergency Room Report ---
History of Present Illness General Chief Complaint: Dyspnea/Respdistress Source: Patient Present Illness HPI 66-year-old male presents to ED complaining of cough and shortness of breath. States that he's had these symptoms since he was discharged from the hospital recently. Patient has history of CHF. Patient has had multiple admissions to hospital for treatment of the CHF in recent time. She notes persistent cough, shortness of breath and leg swelling. Cough is dry. Denies chest pain. Denies fevers or chills. No aggravating or relieving factors. Denies any other associated symptoms Allergies: Coded Allergies: No Known Allergies (Unverified , 09/20/15) Patient History Past Medical History: DM, HTN, asthma, COPD Past Surgical History: none Pertinent Family History: none Social History: Denies: alcohol use, drug use, smoking Immunizations: UTD Reviewed Nursing Documentation: PMH: Agreed, PSxH: Agreed Nursing Documentation-PMH Past Medical History: No History, Except For Hx Cardiac Problems: Yes - CHF Hx Hypertension: Yes Hx Pacemaker: No Hx Asthma: Yes Hx COPD: Yes Hx Diabetes: Yes Hx Cancer: No Hx Gastrointestinal Problems: No Hx Dialysis: No Hx Neurological Problems: No Hx Cerebrovascular Accident: No Hx Transient Ischemic Attacks: No Hx Seizures: No Review of Systems All Other Systems: negative except mentioned in HPI Physical Exam Vital Signs Date Time Temp Pulse Resp B/P Pulse Ox O2 Delivery O2 Flow Rate FiO2 08/31/16 23:02 98.1 98 29 129/91 94 Room Air 08/31/16 23:39 1.0 28 Sp02 EP Interpretation: reviewed, normal General Appearance: no apparent distress, alert, GCS 15, non-toxic Head: normocephalic, atraumatic Eyes: bilateral eye PERRL, bilateral eye normal inspection Neck: full range of motion, supple/symm/no masses Respiratory: decreased breath sounds, crackles Cardiovascular #1: regular rate, rhythm, no edema Gastrointestinal: normal bowel sounds, non tender, soft, non-distended, no guarding, no rebound Rectal: deferred Genitourinary: no CVA tenderness Musculoskeletal: swelling - 2+ pitting edema b/l LE Neurologic: alert, oriented x3, responsive, motor strength/tone normal, sensory intact, speech normal Psychiatric: normal inspection Skin: normal inspection Lymphatic: normal inspection Medical Decision Making Diagnostic Impression: Primary Impression: CHF exacerbation Qualified Codes: I50.9 - Heart failure, unspecified Additional Impression: Asthma exacerbation in COPD ER Course Hospital Course 66-year-old male presents ED complaining of shortness of breath, leg swelling Differential diagnoses include: PR/unstable angina, contusion, muscle strain, PTX, rib fracture Clinical course Patient placed on stretcher. on cardiac care nurse. After initial history and physical I ordered labs, EKG, chest x-ray, nebulizer treatments labs reviewed- no leukocytosis, hemoglobin/hematocrit stable, electrolytes ok, troponins negative, BNP elevated Chest x-ray- pulmonary congestion, cardiomegaly, ? infiltrate Antibiotics given. Lasix given. Case discussed with Dr. Thurston and he agreed to accept the patient to his service for further care and support I. I feel this is a highly complex case requiring extensive working including EKG/Rhythm strip, Xray/CT/US, Blood/urine lab work, repeat exams while in ED, and administration of strong opiates/narcotics for pain control, admission to hospital or close patient follow up. Diagnosis - CHF exacerbation, asthma exacerbation in COPD admitted to telemetry in serious condition Labs Test 08/31/16 23:32 White Blood Count 5.3 K/UL (4.8-10.8) Red Blood Count 4.79 M/UL (4.70-6.10) Hemoglobin 12.3 G/DL (14.2-18.0) Hematocrit 43.8 % (42.0-52.0) Mean Corpuscular Volume 91 FL (80-99) Mean Corpuscular Hemoglobin 25.6 PG (27.0-31.0) Mean Corpuscular Hemoglobin Concent 28.0 G/DL (32.0-36.0) Red Cell Distribution Width 16.5 % (11.6-14.8) Platelet Count 172 K/UL (150-450) Mean Platelet Volume 8.0 FL (6.5-10.1) Neutrophils (%) (Auto) 61.3 % (45.0-75.0) Lymphocytes (%) (Auto) 18.7 % (20.0-45.0) Monocytes (%) (Auto) 14.7 % (1.0-10.0) Eosinophils (%) (Auto) 1.8 % (0.0-3.0) Basophils (%) (Auto) 3.4 % (0.0-2.0) Sodium Level 143 mEQ/L (135-145) Potassium Level 3.6 mEQ/L (3.4-4.9) Chloride Level 100 mEQ/L (98-107) Carbon Dioxide Level 26 mEQ/L (20-30) Anion Gap 17 (5-15) Blood Urea Nitrogen 22 mg/dL (7-23) Creatinine 1.1 mg/dL (0.7-1.2) Estimat Glomerular Filtration Rate > 60 mL/min (>60) Glucose Level 173 mg/dL (74-106) Lactic Acid Level 2.10 mmol/L (0.66-2.22) Calcium Level 9.2 mg/dL (8.6-10.2) Total Bilirubin 2.3 mg/dL (0.0-1.2) Direct Bilirubin 1.5 mg/dL (0.1-0.3) Aspartate Amino Transf (AST/SGOT) 26 U/L (5-40) Alanine Aminotransferase (ALT/SGPT) 12 U/L (3-41) Alkaline Phosphatase 238 U/L (40-129) Total Creatine Kinase 129 U/L (38-174) Creatine Kinase MB 2.0 ng/mL (< 6.7) Creatine Kinase MB Relative Index 1.5 Troponin I < 0.30 ng/mL (<=0.30) Pro-B-Type Natriuretic Peptide 1749 pg/mL (0-125) Total Protein 7.7 g/dL (6.6-8.7) Albumin 3.6 g/dL (3.5-5.2) Globulin 4.1 g/dL Albumin/Globulin Ratio 0.8 (1.0-2.7) EKG Diagnostic Results Rate: normal Rhythm: NSR ST Segments: other - twave inversions in lateral leads ASA given to the pt in ED: No Rhythm Strip Diag. Results EP Interpretation: yes Rhythm: NSR, no PVC's, no ectopy Chest X-Ray Diagnostic Results EP Interpretation: Yes Findings: no pneumothorax, no acute cardiopulmonary disease, other - cardiomegaly. b/l effusion. ?infiltrate Number of Views: 1 Last Vital Signs Date Time Temp Pulse Resp B/P Pulse Ox O2 Delivery O2 Flow Rate FiO2 08/31/16 23:59 96 20 98 Nasal Cannula 1.0 28 08/31/16 23:47 98.1 124/88 Status: improved Disposition: ADMITTED INPATIENT Condition: Serious Referrals: LEIDY WASHINGTON,MARLEEN (PCP) ERIKA CHUA M.D. Sep 01, 2016 00:57
[2016-09-01 01:05] LABS: APPEARANCE,URINE CLEAR; KETONES,URINE NEGATIVE (NEGATIVE); LEUKOCYTE ESTERASE ,URINE NEGATIVE (NEGATIVE); NITRITE,URINE NEGATIVE (NEGATIVE); PH,URINE 6 (4.5-8.0); PROTEIN,URINE 3+ (NEGATIVE); UROBILINOGEN,URINE 8 MG/DL (0.0-1.0)
[2016-09-01 01:10] LABS: BACTERIA,URINE FEW /HPF; HYALINE CASTS, URINE 0-2 /LPF; SQUAMOUS EPITHELIAL CELL,UR FEW /LPF (NONE/OCC); WBC,URINE 0-2 /HPF (0 - 0)
[2016-09-01] MEDS ORDERED: Miralax 17gm pkt ORAL PRN (04:45)
[2016-09-01] MEDS: NovoLOG Insulin Flexpen SUBQ SCH ×4 (06:29→22:33)
[2016-09-01] MEDS: DuoNeb 0.5-3(2.5)mg/3ml neb HHN PRN (06:43)
--- NOTE | 2016-09-01 08:05 | History and Physical ---
History of Present Illness General Date patient seen: Sep 01, 2016 Reason for Hospitalization: Dyspnea/Respdistress Present Illness HPI 66-year-old male, with hx of CHF, COPD, cardiomyopathy, DM presented to ED complaining of cough and shortness of breath. Patient has had multiple admissions to hospital for treatment of the CHF in recent times, declined to be discharged to the correction facility He noted persistent dry cough, no wheezing, no hemoptysis, progressively worse shortness of breath and bilateral leg swelling. Denied chest pain. Denied fevers or chills. Workup in ED revealed negative troponin, no leukocytosis elevated lactic acid, pro BNP 1749 elevated bili CXR with pulmonary congestion, cardiomegaly, ? infiltrate Allergies: Coded Allergies: No Known Allergies (Unverified , 09/20/15) Medication History Scheduled Amlodipine Besylate* (Amlodipine Besylate*), 5 MG ORAL DAILY, (Reported) Aspirin* (Aspirin*), 81 MG ORAL DAILY, (Reported) Furosemide* (Lasix*), 40 MG ORAL TWICE A DAY, (Reported) Insulin Lispro (Humalog), 4 SUBQ PRIOR TO MEALS, (Reported) Lisinopril* (Zestril*), 20 MG ORAL BID, (Reported) Discontinued Medications Atorvastatin Calcium* (Atorvastatin Calcium*), 40 MG ORAL BEDTIME, (Reported) Discontinued Reason: Pt stopped taking med Furosemide* (Lasix*), 80 MG ORAL DAILY, (Reported) Discontinued Reason: Medication dose changed Lisinopril (Lisinopril*), 20 MG ORAL DAILY, (Reported) Discontinued Reason: Medication dose changed Metoprolol Succinate* (Metoprolol Succinate*), 25 MG ORAL DAILY, (Reported) Discontinued Reason: Pt stopped taking med Patient History History Provided By: Patient Healthcare decision maker Resuscitation status Full Code Advanced Directive on File Past Medical/Surgical History Past Medical/Surgical History: (1) Severe systolic congestive heart failure (2) Asthma exacerbation (3) Uncontrolled diabetes mellitus (4) Chronic kidney disease (5) Pulmonary hypertension (6) CHF exacerbation (7) Cocaine abuse Review of Systems Constitutional: Reports: weakness Eye: Reports: no symptoms ENT: Reports: no symptoms Respiratory: Reports: see HPI Cardiovascular: Reports: see HPI Gastrointestinal: Reports: no symptoms Genitourinary: Reports: no symptoms Musculoskeletal: Reports: joint pain Skin: Reports: no symptoms Psychiatric: Reports: no symptoms Neurological: Reports: no symptoms Endocrine: Reports: other - DM Hematologic/Lymphatic: Reports: no symptoms Physical Exam General Appearance: no apparent distress, alert Lines, tubes and drains: peripheral HEENT: normocephalic, atraumatic, anicteric, mucous membranes moist, PERRL Neck: supple Respiratory/Chest: chest wall non-tender, no respiratory distress, no accessory muscle use, decreased breath sounds, crackles/rales - at bases Cardiovascular/Chest: normal rate, regular rhythm - SR on tele Abdomen: normal bowel sounds, non tender, soft Extremities: no calf tenderness, normal capillary refill, moderate edema - +2 BLE Neurologic: alert, oriented x 3, responsive Musculoskeletal: normal muscle bulk Last 24 Hour Vital Signs Date Time Temp Pulse Resp B/P Pulse Ox O2 Delivery O2 Flow Rate FiO2 09/01/16 06:51 92 18 100 Nasal Cannula 1.0 09/01/16 06:43 Nasal Cannula 1.0 09/01/16 06:43 98 Nasal Cannula 1.0 09/01/16 06:43 09/01/16 06:43 94 18 98 Nasal Cannula 1.0 09/01/16 06:43 94 18 Nasal Cannula 1.0 09/01/16 04:00 97.7 98 20 135/90 96 Room Air 09/01/16 04:00 97 09/01/16 01:55 97.9 97 20 149/82 100 Nasal Cannula 1.0 09/01/16 01:41 98.1 95 20 130/91 98 Nasal Cannula 1.0 09/01/16 01:26 98.1 95 20 130/91 98 Nasal Cannula 1.0 08/31/16 23:59 96 20 98 Nasal Cannula 1.0 08/31/16 23:47 98.1 93 22 124/88 96 Nasal Cannula 1.0 08/31/16 23:45 93 18 Nasal Cannula 1.0 08/31/16 23:40 28 08/31/16 23:40 93 18 Nasal Cannula 1.0 08/31/16 23:39 93 18 98 Nasal Cannula 1.0 08/31/16 23:02 98.1 98 29 129/91 94 Room Air Intake and Output 08/31/16 09/01/16 19:00 07:00 Intake Total 390 ml Output Total 1000 ml Balance -610 ml Intake Oral 240 ml IV Total 150 ml Output Urine Total 1000 ml # Voids 2 # Bowel Movements 1 Laboratory Tests Test 08/31/16 23:32 09/01/16 00:05 09/01/16 00:50 09/01/16 06:40 White Blood Count 5.3 K/UL (4.8-10.8) Red Blood Count 4.79 M/UL (4.70-6.10) Hemoglobin 12.3 G/DL (14.2-18.0) L Hematocrit 43.8 % (42.0-52.0) Mean Corpuscular Volume 91 FL (80-99) Mean Corpuscular Hemoglobin 25.6 PG (27.0-31.0) L Mean Corpuscular Hemoglobin Concent 28.0 G/DL (32.0-36.0) L Red Cell Distribution Width 16.5 % (11.6-14.8) H Platelet Count 172 K/UL (150-450) Mean Platelet Volume 8.0 FL (6.5-10.1) Neutrophils (%) (Auto) 61.3 % (45.0-75.0) Lymphocytes (%) (Auto) 18.7 % (20.0-45.0) L Monocytes (%) (Auto) 14.7 % (1.0-10.0) H Eosinophils (%) (Auto) 1.8 % (0.0-3.0) Basophils (%) (Auto) 3.4 % (0.0-2.0) H Sodium Level 143 mEQ/L (135-145) Potassium Level 3.6 mEQ/L (3.4-4.9) Chloride Level 100 mEQ/L (98-107) Carbon Dioxide Level 26 mEQ/L (20-30) Anion Gap 17 (5-15) H Blood Urea Nitrogen 22 mg/dL (7-23) Creatinine 1.1 mg/dL (0.7-1.2) Estimat Glomerular Filtration Rate > 60 mL/min (>60) Glucose Level 173 mg/dL (74-106) H Lactic Acid Level 2.10 mmol/L (0.66-2.22) 2.60 mmol/L (0.66-2.22) H Calcium Level 9.2 mg/dL (8.6-10.2) Total Bilirubin 2.3 mg/dL (0.0-1.2) H Direct Bilirubin 1.5 mg/dL (0.1-0.3) H Aspartate Amino Transf (AST/SGOT) 26 U/L (5-40) Alanine Aminotransferase (ALT/SGPT) 12 U/L (3-41) Alkaline Phosphatase 238 U/L (40-129) H Total Creatine Kinase 129 U/L (38-174) Creatine Kinase MB 2.0 ng/mL (< 6.7) Creatine Kinase MB Relative Index 1.5 Troponin I < 0.30 ng/mL (<=0.30) Pending Pro-B-Type Natriuretic Peptide 1749 pg/mL (0-125) H Total Protein 7.7 g/dL (6.6-8.7) Albumin 3.6 g/dL (3.5-5.2) Globulin 4.1 g/dL Albumin/Globulin Ratio 0.8 (1.0-2.7) L Urine Color Yellow Urine Appearance Clear Urine pH 6 (4.5-8.0) Urine Specific [place] 1.015 (1.005-1.035) Urine Protein 3+ (NEGATIVE) H Urine Glucose (UA) Negative (NEGATIVE) Urine Ketones Negative (NEGATIVE) Urine Occult Blood Negative (NEGATIVE) Urine Nitrite Negative (NEGATIVE) Urine Bilirubin Negative (NEGATIVE) Urine Urobilinogen 8 MG/DL (0.0-1.0) H Urine Leukocyte Esterase Negative (NEGATIVE) Urine RBC 2-4 /HPF (0 - 0) H Urine WBC 0-2 /HPF (0 - 0) Urine Squamous Epithelial Cells Few /LPF (NONE/OCC) Urine Bacteria Few /HPF (NONE) Urine Hyaline Casts 0-2 /LPF (NONE) H Height (Feet): 6 Height (Inches): 1.00 Weight (Pounds): 223 Medications Current Medications Medications (Trade) Dose Ordered Sig/Morteza Route PRN Reason Start Time Stop Time Status Last Admin Dose Admin Acetaminophen (Tylenol) 650 mg Q4H PRN ORAL Fever 09/01/16 04:45 10/01/16 04:44 Albuterol/ Ipratropium (DuoNeb 0.5-3(2.5)mg/3ml) 3 ml EVERY 4 HOURS PRN HHN Shortness of Breath 09/01/16 04:45 09/06/16 04:44 09/01/16 06:43 Amlodipine Besylate (Norvasc) 5 mg DAILY ORAL 09/01/16 09:00 10/01/16 08:59 Dextrose (Dextrose 50%) STAT PRN IV Hypoglycemia 09/01/16 04:45 10/01/16 04:44 Furosemide (Lasix) 40 mg EVERY 8 HOURS IV 09/01/16 06:00 10/01/16 05:59 09/01/16 06:02 Heparin Sodium (Porcine) (Heparin 5000 units/ml) 5,000 units EVERY 12 HOURS SUBQ 09/01/16 09:00 10/01/16 08:59 Insulin Aspart (NovoLOG) BEFORE MEALS AND HS SUBQ 09/01/16 06:30 10/01/16 06:29 09/01/16 06:29 Ondansetron HCl (Zofran) 4 mg Q6H PRN IVP Nausea & Vomiting 09/01/16 04:45 10/01/16 04:44 Polyethylene Glycol (Miralax) 17 gm DAILYPRN PRN ORAL Constipation 09/01/16 04:45 10/01/16 04:44 Temazepam (Restoril) 15 mg HSPRN PRN ORAL Insomnia 09/01/16 04:45 09/08/16 04:44 Assessment/Plan Status Narrative Assessment/Plan ASSESSMENT dyspnea acute CHF exacerbation , systolic and diastolic cardiomyopathy COPD/asthma, possible exacerbation possible PNA lactic acidosis HTN DM mild pulmonary HTN Hx of cocaine abuse depression PLAN OF CARE tele serial troponin x 2 negative O2 HHN doubt COPD exacerbation, no steroids for now, cardio eval diuretics, monitor I/O, renal parameters, lytes resume medical management for CHF BP management with CCB and diuretic Venous Duplex BLE empiric antibiotics Fup with CXR in am BS management with SS of insulin DVT, GI prophylaxis add lexapro case discussed and evaluated by supervising physician Khurram Mancia),Lizzie UMANA Sep 01, 2016 08:05
[2016-09-01 08:10] LABS: TROPONIN I < 0.30 ng/mL (<=0.30)
[2016-09-01] MEDS: Heparin 5000 units/ml inj SUBQ SCH ×2 (09:00→21:21)
--- NOTE | 2016-09-01 12:59 | Cardiology Progress Note ---
Assessment/Plan Assessment/Plan [id number] chf edema cm MR pulm htn hs of cociane use uds iv diuretics consider antidepressent s full note dicatated Objective Last 24 Hour Vital Signs Date Time Temp Pulse Resp B/P Pulse Ox O2 Delivery O2 Flow Rate FiO2 09/01/16 09:00 103 128/88 09/01/16 08:00 107 09/01/16 08:00 97.3 103 18 128/88 96 Room Air 09/01/16 06:51 92 18 100 Nasal Cannula 1.0 24 09/01/16 06:43 Nasal Cannula 1.0 24 09/01/16 06:43 98 Nasal Cannula 1.0 24 09/01/16 06:43 24 09/01/16 06:43 94 18 98 Nasal Cannula 1.0 09/01/16 06:43 94 18 Nasal Cannula 1.0 24 09/01/16 04:00 97.7 98 20 135/90 96 Room Air 09/01/16 04:00 97 09/01/16 01:55 97.9 97 20 149/82 100 Nasal Cannula 1.0 09/01/16 01:41 98.1 95 20 130/91 98 Nasal Cannula 1.0 09/01/16 01:26 98.1 95 20 130/91 98 Nasal Cannula 1.0 28 08/31/16 23:59 96 20 98 Nasal Cannula 1.0 28 08/31/16 23:47 98.1 93 22 124/88 96 Nasal Cannula 1.0 28 08/31/16 23:45 93 18 Nasal Cannula 1.0 28 08/31/16 23:40 28 08/31/16 23:40 93 18 Nasal Cannula 1.0 28 08/31/16 23:39 93 18 98 Nasal Cannula 1.0 28 08/31/16 23:02 98.1 98 29 129/91 94 Room Air Intake and Output 08/31/16 09/01/16 19:00 07:00 Intake Total 390 ml Output Total 1000 ml Balance -610 ml Intake Oral 240 ml IV Total 150 ml Output Urine Total 1000 ml # Voids 2 # Bowel Movements 1 Laboratory Tests Test 08/31/16 23:32 09/01/16 00:05 09/01/16 00:50 09/01/16 06:40 White Blood Count 5.3 K/UL (4.8-10.8) Red Blood Count 4.79 M/UL (4.70-6.10) Hemoglobin 12.3 G/DL (14.2-18.0) L Hematocrit 43.8 % (42.0-52.0) Mean Corpuscular Volume 91 FL (80-99) Mean Corpuscular Hemoglobin 25.6 PG (27.0-31.0) L Mean Corpuscular Hemoglobin Concent 28.0 G/DL (32.0-36.0) L Red Cell Distribution Width 16.5 % (11.6-14.8) H Platelet Count 172 K/UL (150-450) Mean Platelet Volume 8.0 FL (6.5-10.1) Neutrophils (%) (Auto) 61.3 % (45.0-75.0) Lymphocytes (%) (Auto) 18.7 % (20.0-45.0) L Monocytes (%) (Auto) 14.7 % (1.0-10.0) H Eosinophils (%) (Auto) 1.8 % (0.0-3.0) Basophils (%) (Auto) 3.4 % (0.0-2.0) H Sodium Level 143 mEQ/L (135-145) Potassium Level 3.6 mEQ/L (3.4-4.9) Chloride Level 100 mEQ/L (98-107) Carbon Dioxide Level 26 mEQ/L (20-30) Anion Gap 17 (5-15) H Blood Urea Nitrogen 22 mg/dL (7-23) Creatinine 1.1 mg/dL (0.7-1.2) Estimat Glomerular Filtration Rate > 60 mL/min (>60) Glucose Level 173 mg/dL (74-106) H Lactic Acid Level 2.10 mmol/L (0.66-2.22) 2.60 mmol/L (0.66-2.22) H Calcium Level 9.2 mg/dL (8.6-10.2) Total Bilirubin 2.3 mg/dL (0.0-1.2) H Direct Bilirubin 1.5 mg/dL (0.1-0.3) H Aspartate Amino Transf (AST/SGOT) 26 U/L (5-40) Alanine Aminotransferase (ALT/SGPT) 12 U/L (3-41) Alkaline Phosphatase 238 U/L (40-129) H Total Creatine Kinase 129 U/L (38-174) Creatine Kinase MB 2.0 ng/mL (< 6.7) Creatine Kinase MB Relative Index 1.5 Troponin I < 0.30 ng/mL (<=0.30) < 0.30 ng/mL (<=0.30) Pro-B-Type Natriuretic Peptide 1749 pg/mL (0-125) H Total Protein 7.7 g/dL (6.6-8.7) Albumin 3.6 g/dL (3.5-5.2) Globulin 4.1 g/dL Albumin/Globulin Ratio 0.8 (1.0-2.7) L Urine Color Yellow Urine Appearance Clear Urine pH 6 (4.5-8.0) Urine Specific [place] 1.015 (1.005-1.035) Urine Protein 3+ (NEGATIVE) H Urine Glucose (UA) Negative (NEGATIVE) Urine Ketones Negative (NEGATIVE) Urine Occult Blood Negative (NEGATIVE) Urine Nitrite Negative (NEGATIVE) Urine Bilirubin Negative (NEGATIVE) Urine Urobilinogen 8 MG/DL (0.0-1.0) H Urine Leukocyte Esterase Negative (NEGATIVE) Urine RBC 2-4 /HPF (0 - 0) H Urine WBC 0-2 /HPF (0 - 0) Urine Squamous Epithelial Cells Few /LPF (NONE/OCC) Urine Bacteria Few /HPF (NONE) Urine Hyaline Casts 0-2 /LPF (NONE) H JULIOCESAR GONSALEZ Sep 01, 2016 12:59
[2016-09-01] MEDS: Lisinopril 20mg tab ORAL SCH ×2 (16:00→22:21)
[2016-09-01] MEDS: Spironolactone 25mg tab ORAL SCH (16:00)
[2016-09-01] MEDS: Carvedilol 6.25mg Tab ORAL SCH (16:00)
[2016-09-02] VITALS: BP 124/78
--- NOTE | 2016-09-02 01:18 | Consultation ---
DATE OF CONSULTATION: 09/01/2016 CARDIOLOGY CONSULTATION CONSULTING PHYSICIAN: Nolberto Aden M.D. REFERRING PHYSICIAN: Ирина Thurston M.D. REASON FOR REFERRAL: Congestive heart failure. HISTORY OF PRESENT ILLNESS: The patient is a middle-aged gentleman, who is known to me from prior evaluation and hospitalization frequently. As had been in fact he was just in the hospital within the past week or two with congestive heart failure exacerbation on chronic basis. His medications were adjusted and eventually he went home. He tells me that he came back because he is feeling down. Does not have any PND or orthopnea. Uses two pillows. There is no dizziness on standing. There is no dyspnea on exertion. He still has significant edema of lower extremities. PAST MEDICAL HISTORY: Positive for history of congestive heart failure, has multiple exacerbations and he has been hospitalized here and at [facility]. He has a history of chronic obstructive pulmonary disease, history of acute and chronic congestive heart failure, cardiomyopathy, severe pulmonary hypertension, renal insufficiency, diabetes mellitus, and history of cocaine use. ALLERGIES: He is reportedly not allergic to any medications. SOCIAL HISTORY: He does not smoke or drink or use drugs, although he has had previously. REVIEW OF SYSTEMS: Gastrointestinal: He denies. Genitourinary: He denies. Pulmonary: He denies. Constitutional: He denies. Neurologic: He denies. PHYSICAL EXAMINATION: GENERAL: Shows to be an elderly middle-aged gentleman, in no respiratory distress. He is lying flat on prone position. When I went into the room, he appears to be not symptomatic at this time. NECK: Supple. Some jugular venous distention is noted. LUNGS: Clear to auscultation and percussion. CARDIAC: S1 is normal. S2 is normal. Regular rate and rhythm. No heaves, thrills, gallops, or rubs are noted. ABDOMEN: Soft and nontender. Positive bowel sounds. EXTREMITIES: There is 2 to 3+ edema of the lower extremities bilaterally up to level below the knee. LABORATORY VALUES AND DIAGNOSTIC DATA: Sodium 142, potassium 3.3, chloride 100, bicarbonate 26, BUN 22, creatinine 1.1, and glucose of 173. Lactic acid of 2.1 and subsequently 2.6. Calcium is 9.8. Troponin on two separate occasions is negative. ProBNP of 1700. It has been as high as 6500 back in 2016. His white count was 5.3, hemoglobin 12.3, and platelet count 172,000. His toxicology screens have been reported to be positive on two prior occasions with cocaine, none was checked this time. His urinalysis is otherwise fairly unremarkable. A chest x-ray was not performed during this hospitalization, is not available. His last echocardiogram on 08/20/2016 showed an ejection fraction of 20 to 25%. Severe MR and mild aortic regurgitation. Pulmonary artery systolic pressure of 42. Preliminary venous duplex study is unremarkable for deep venous thrombosis. EKG shows inferior infarct, age undetermined and anterior infarct, age undetermined. There is T-wave inversions in leads I and aVL as well as V6, and EKG does not appear to be significantly changed from prior EKG back on 08/19/2016. ASSESSMENT AND PLAN: 1. Chronic congestive heart failure. 2. Possible depression. 3. Chronic obstructive pulmonary disease. 4. Cardiomyopathy. 5. History of cocaine abuse. This patient was admitted to the hospital, has been seen in cardiology consultation. He does have chronic congestive heart failure. He needs to be continued on his usual medications that he adjusted during last hospitalization and if possible, I will adjust the medications upward further including SINDI inhibitors and beta-blockers and continue his diuretics, although while he is here, he should receive intravenous diuretics to help decrease the amount of swelling. A urine drug screen will be requested and consider administering antidepressant medications as he seems to indicate that he feels depressed and that was the main reason he came in to the hospital not because of shortness of breath. Dr. Thurston, thank you for allowing me to participate in the care of this patient. Nolberto Aden M.D. DR: ERNA JOB#: [id number] CC:
[2016-09-02] MEDS: DuoNeb 0.5-3(2.5)mg/3ml neb HHN PRN ×2 (01:27→18:51)
[2016-09-02 04:00] VITALS: BP 121/78
[2016-09-02] MEDS: NovoLOG Insulin Flexpen SUBQ SCH ×4 (06:30→21:26)
[2016-09-02 08:22] LABS: BASOPHILS % (AUTO) 3.2 % (0.0-2.0); LYMPHOCYTES % (AUTO) 13.6 % (20.0-45.0); MEAN CORPUSCULAR HEMOGLOBIN 28.8 PG (27.0-31.0); MEAN CORPUSCULAR HGB CONC 30.9 G/DL (32.0-36.0); MEAN CORPUSCULAR VOLUME 93 FL (80-99); MONOCYTES % (AUTO) 15.7 % (1.0-10.0); NEUTROPHILS % (AUTO) 66.5 % (45.0-75.0); PLATELET COUNT 261 K/UL (150-450); RED BLOOD COUNT 4.53 M/UL (4.70-6.10); RED CELL DISTRIBUTION WIDTH 16.1 % (11.6-14.8); WHITE BLOOD COUNT 6.5 K/UL (4.8-10.8)
[2016-09-02 08:29] VITALS: BP 115/78
[2016-09-02 08:41] LABS: ANION GAP 17 (5-15); CALCIUM 9.6 mg/dL (8.6-10.2); CARBON DIOXIDE 27 mEQ/L (20-30); CHLORIDE 99 mEQ/L (98-107); CREATININE 1.2 mg/dL (0.7-1.2); GLOMERULAR FILTRATION RATE > 60 mL/min (>60); HEMOLYSIS 0; PHOSPHORUS 4.3 mg/dL (2.5-4.8); POTASSIUM 3.4 mEQ/L (3.4-4.9); SODIUM 143 mEQ/L (135-145); TROPONIN I < 0.30 ng/mL (<=0.30)
--- NOTE | 2016-09-02 08:43 | Diagnostic Imaging Report ---
Clinical history: As in header. Technique: Portable AP chest radiograph was obtained. Comparison: 08/22/16 Findings: There is no significant interval change in the interval, allowing for differences in technique and positioning. Impression: Mild cardiomegaly with suspected mild interstitial edema or vascular crowding. Probable right basilar atelectasis.
[2016-09-02] MEDS: Lisinopril 20mg tab ORAL SCH ×2 (09:31→21:24)
[2016-09-02] MEDS: Spironolactone 25mg tab ORAL SCH (09:32)
[2016-09-02] MEDS: Carvedilol 6.25mg Tab ORAL SCH ×2 (09:33→21:24)
[2016-09-02] MEDS: Heparin 5000 units/ml inj SUBQ SCH ×2 (09:37→21:26)
[2016-09-02 11:36] VITALS: BP 132/98
--- NOTE | 2016-09-02 12:57 | Pulmonology Progress Note ---
Assessment/Plan Problems: (1) Severe systolic congestive heart failure (2) Asthma exacerbation in COPD (3) Cocaine abuse (4) CHF exacerbation Assessment/Plan continue diuretics check electrolytes f/u cardiology recommndations Subjective ROS Limited/Unobtainable: No Interval Events: comfortable Allergies: Coded Allergies: No Known Allergies (Unverified , 09/20/15) Objective Last 24 Hour Vital Signs Date Time Temp Pulse Resp B/P Pulse Ox O2 Delivery O2 Flow Rate FiO2 09/02/16 11:36 97.0 88 20 132/98 95 Nasal Cannula 2.0 09/02/16 09:33 62 142/88 09/02/16 09:31 142/88 09/02/16 08:30 67 18 Nasal Cannula 3.0 09/02/16 08:30 Nasal Cannula 3.0 09/02/16 08:30 97 Nasal Cannula 3.0 09/02/16 08:29 97.0 91 20 115/78 95 Nasal Cannula 2.0 09/02/16 08:00 62 09/02/16 04:00 98.0 74 18 121/78 99 Nasal Cannula 2.0 09/02/16 01:31 78 18 100 Nasal Cannula 3.0 09/02/16 01:29 83 18 100 Nasal Cannula 3.0 09/02/16 01:28 83 18 Nasal Cannula 3.0 09/02/16 01:28 100 Nasal Cannula 3.0 09/02/16 01:28 Nasal Cannula 3.0 09/02/16 00:03 88 09/02/16 00:00 97.5 87 19 124/78 94 Room Air 09/01/16 22:55 105 09/01/16 22:21 126/101 09/01/16 20:34 97.2 103 19 126/101 95 Nasal Cannula 2.0 09/01/16 19:10 105 09/01/16 16:24 98.1 105 20 146/95 94 Room Air 09/01/16 16:00 90 09/01/16 16:00 80 140/80 09/01/16 16:00 140/80 09/01/16 13:24 106 Intake and Output 09/01/16 09/02/16 19:00 07:00 Intake Total 560 ml 240 ml Output Total 825 ml Balance 560 ml -585 ml Intake Oral 560 ml 240 ml Output Urine Total 825 ml # Voids 2 3 # Bowel Movements 2 1 General Appearance: WD/WN HEENT: normocephalic, atraumatic Respiratory/Chest: chest wall non-tender, lungs clear Cardiovascular: normal peripheral pulses, normal rate Abdomen: normal bowel sounds, soft, non tender Genitourinary: normal external genitalia Extremities: no cyanosis Skin: no lesions Microbiology Date/Time Source Procedure Growth Status 08/31/16 23:30 Blood Blood Culture - Preliminary NO GROWTH AFTER 24 HOURS Resulted 08/31/16 23:30 Blood Blood Culture - Preliminary NO GROWTH AFTER 24 HOURS Resulted Laboratory Tests 09/02/16 07:00: White Blood Count 6.5, Red Blood Count 4.53L, Hemoglobin 13.1L, Hematocrit 42.2 , Mean Corpuscular Volume 93, Mean Corpuscular Hemoglobin 28.8, Mean Corpuscular Hemoglobin Concent 30.9L, Red Cell Distribution Width 16.1H, Platelet Count 261#, Mean Platelet Volume 9.0, Neutrophils (%) (Auto) 66.5, Lymphocytes (%) (Auto) 13.6L, Monocytes (%) (Auto) 15.7H, Eosinophils (%) (Auto ) 1.0, Basophils (%) (Auto) 3.2H, Sodium Level 143, Potassium Level 3.4, Chloride Level 99, Carbon Dioxide Level 27, Anion Gap 17H, Blood Urea Nitrogen 23, Creatinine 1.2, Estimat Glomerular Filtration Rate > 60, Glucose Level 47#L , Calcium Level 9.6, Phosphorus Level 4.3, Troponin I < 0.30, Albumin 3.6 Current Medications Medications (Trade) Dose Ordered Sig/Morteza Route PRN Reason Start Time Stop Time Status Last Admin Dose Admin Acetaminophen (Tylenol) 650 mg Q4H PRN ORAL Fever 09/01/16 04:45 10/01/16 04:44 Albuterol/ Ipratropium (DuoNeb 0.5-3(2.5)mg/3ml) 3 ml EVERY 4 HOURS PRN HHN Shortness of Breath 09/01/16 04:45 09/06/16 04:44 09/02/16 01:27 Carvedilol (Coreg) 6.25 mg EVERY 12 HOURS ORAL 09/01/16 16:00 10/01/16 15:59 09/02/16 09:33 Dextrose (Dextrose 50%) STAT PRN IV Hypoglycemia 09/01/16 04:45 10/01/16 04:44 Escitalopram Oxalate (Lexapro) 10 mg DAILY ORAL 09/02/16 09:00 10/02/16 08:59 09/02/16 09:00 Furosemide (Lasix) 40 mg EVERY 8 HOURS IV 09/01/16 06:00 10/01/16 05:59 09/02/16 06:33 Heparin Sodium (Porcine) (Heparin 5000 units/ml) 5,000 units EVERY 12 HOURS SUBQ 09/01/16 09:00 10/01/16 08:59 09/02/16 09:37 Insulin Aspart (NovoLOG) BEFORE MEALS AND HS SUBQ 09/01/16 06:30 10/01/16 06:29 09/02/16 11:56 Levofloxacin (Levaquin) 500 mg Q24H ORAL 09/02/16 21:00 09/09/16 20:59 Lisinopril (Prinivil) 20 mg Q12HR ORAL 09/01/16 16:00 10/01/16 15:59 09/02/16 09:31 Ondansetron HCl (Zofran) 4 mg Q6H PRN IVP Nausea & Vomiting 09/01/16 04:45 10/01/16 04:44 Polyethylene Glycol (Miralax) 17 gm DAILYPRN PRN ORAL Constipation 09/01/16 04:45 10/01/16 04:44 Spironolactone (Aldactone) 12.5 mg DAILY ORAL 09/01/16 16:00 10/01/16 15:59 09/02/16 09:32 Temazepam (Restoril) 15 mg HSPRN PRN ORAL Insomnia 09/01/16 04:45 09/08/16 04:44 09/01/16 21:22 KENY JIMÉNEZ Sep 02, 2016 12:57
--- NOTE | 2016-09-02 15:49 | Diagnostic Imaging Report ---
Indication: DYSPNEA Technique: One view of the chest Comparison: 08/31/2016 Findings: The heart is enlarged. Lungs and pleural spaces are clear. There is apparent decreased interstitial congestion Impression: Cardiomegaly. Decreased interstitial congestion, over one day. No acute process currently
[2016-09-02 16:00] VITALS: BP 102/67
--- NOTE | 2016-09-02 18:55 | Cardiology Progress Note ---
Assessment/Plan Assessment/Plan 1. Chronic congestive heart failure. 2. Possible depression. 3. Chronic obstructive pulmonary disease. 4. Cardiomyopathy. 5. History of cocaine abuse 6. Mitral regurgitation contienu with diuretic he refuses tele may need to move to [facility] surg on acei and diuretic adn bb will increase bb soon on antidepressants Subjective Cardiovascular: Denies: chest pain, lightheadedness, palpitations Respiratory: Denies: SOB with excertion, shortness of breath Gastrointestinal/Abdominal: Denies: abdominal pain Genitourinary: Denies: burning Objective Last 24 Hour Vital Signs Date Time Temp Pulse Resp B/P Pulse Ox O2 Delivery O2 Flow Rate FiO2 09/02/16 16:00 97.0 81 19 102/67 90 Nasal Cannula 2.0 09/02/16 12:00 89 09/02/16 11:36 97.0 88 20 132/98 95 Nasal Cannula 2.0 09/02/16 09:33 62 142/88 09/02/16 09:31 142/88 09/02/16 08:30 67 18 Nasal Cannula 3.0 09/02/16 08:30 Nasal Cannula 3.0 09/02/16 08:30 97 Nasal Cannula 3.0 09/02/16 08:29 97.0 91 20 115/78 95 Nasal Cannula 2.0 09/02/16 08:00 62 09/02/16 04:00 98.0 74 18 121/78 99 Nasal Cannula 2.0 09/02/16 01:31 78 18 100 Nasal Cannula 3.0 09/02/16 01:29 83 18 100 Nasal Cannula 3.0 09/02/16 01:28 83 18 Nasal Cannula 3.0 09/02/16 01:28 100 Nasal Cannula 3.0 09/02/16 01:28 Nasal Cannula 3.0 09/02/16 00:03 88 09/02/16 00:00 97.5 87 19 124/78 94 Room Air 09/01/16 22:55 105 09/01/16 22:21 126/101 09/01/16 20:34 97.2 103 19 126/101 95 Nasal Cannula 2.0 09/01/16 19:10 105 General Appearance: no apparent distress, alert Neck: supple Cardiovascular: normal rate, regular rhythm Respiratory/Chest: lungs clear Abdomen: normal bowel sounds, non tender, soft Extremities: moderate edema Intake and Output 09/01/16 09/02/16 19:00 07:00 Intake Total 560 ml 240 ml Output Total 825 ml Balance 560 ml -585 ml Intake Oral 560 ml 240 ml Output Urine Total 825 ml # Voids 2 3 # Bowel Movements 2 1 Laboratory Tests Test 09/02/16 07:00 White Blood Count 6.5 K/UL (4.8-10.8) Red Blood Count 4.53 M/UL (4.70-6.10) L Hemoglobin 13.1 G/DL (14.2-18.0) L Hematocrit 42.2 % (42.0-52.0) Mean Corpuscular Volume 93 FL (80-99) Mean Corpuscular Hemoglobin 28.8 PG (27.0-31.0) Mean Corpuscular Hemoglobin Concent 30.9 G/DL (32.0-36.0) L Red Cell Distribution Width 16.1 % (11.6-14.8) H Platelet Count 261 K/UL (150-450) # Mean Platelet Volume 9.0 FL (6.5-10.1) Neutrophils (%) (Auto) 66.5 % (45.0-75.0) Lymphocytes (%) (Auto) 13.6 % (20.0-45.0) L Monocytes (%) (Auto) 15.7 % (1.0-10.0) H Eosinophils (%) (Auto) 1.0 % (0.0-3.0) Basophils (%) (Auto) 3.2 % (0.0-2.0) H Sodium Level 143 mEQ/L (135-145) Potassium Level 3.4 mEQ/L (3.4-4.9) Chloride Level 99 mEQ/L (98-107) Carbon Dioxide Level 27 mEQ/L (20-30) Anion Gap 17 (5-15) H Blood Urea Nitrogen 23 mg/dL (7-23) Creatinine 1.2 mg/dL (0.7-1.2) Estimat Glomerular Filtration Rate > 60 mL/min (>60) Glucose Level 47 mg/dL (74-106) #L Calcium Level 9.6 mg/dL (8.6-10.2) Phosphorus Level 4.3 mg/dL (2.5-4.8) Troponin I < 0.30 ng/mL (<=0.30) Albumin 3.6 g/dL (3.5-5.2) Microbiology Date/Time Source Procedure Growth Status 08/31/16 23:30 Blood Blood Culture - Preliminary NO GROWTH AFTER 24 HOURS Resulted 08/31/16 23:30 Blood Blood Culture - Preliminary NO GROWTH AFTER 24 HOURS Resulted JULIOCESAR GONSALEZ Sep 02, 2016 18:55
[2016-09-02 20:00] VITALS: BP 121/86
[2016-09-02] MEDS: Levofloxacin 500mg tab ORAL SCH (21:23)
[2016-09-03] VITALS: BP 127/80
--- NOTE | 2016-09-03 00:03 | Cardiology Report ---
APPROVED REPORT EKG Measurement Heart [id number] Normal sinus rhythm Left axis deviation Inferior infarct, age undetermined Anterior infarct, age undetermined Abnormal ECG
[2016-09-03] MEDS ORDERED: Norco 10mg/325mg tab ORAL PRN (01:15)
[2016-09-03 04:00] VITALS: BP 112/75
[2016-09-03] MEDS: NovoLOG Insulin Flexpen SUBQ SCH ×4 (06:15→21:34)
[2016-09-03 07:38] VITALS: BP 122/78
[2016-09-03 08:11] LABS: BASOPHILS % (AUTO) 1.5 % (0.0-2.0); EOSINOPHILS % (AUTO) 2.1 % (0.0-3.0); LYMPHOCYTES % (AUTO) 28.3 % (20.0-45.0); MEAN CORPUSCULAR HEMOGLOBIN 28.8 PG (27.0-31.0); MEAN CORPUSCULAR HGB CONC 31.1 G/DL (32.0-36.0); MEAN CORPUSCULAR VOLUME 93 FL (80-99); MEAN PLATELET VOLUME 8.6 FL (6.5-10.1); MONOCYTES % (AUTO) 13.2 % (1.0-10.0); PLATELET COUNT 233 K/UL (150-450); RED BLOOD COUNT 4.35 M/UL (4.70-6.10); RED CELL DISTRIBUTION WIDTH 16.2 % (11.6-14.8)
[2016-09-03 08:30] LABS: TROPONIN I < 0.30 ng/mL (<=0.30)
[2016-09-03 08:35] LABS: ALANINE AMINOTRANSFERASE 9 U/L (3-41); ALBUMIN/GLOBULIN RATIO 0.8 (1.0-2.7); ANION GAP 15 (5-15); ASPARTATE AMINO TRANSFERASE 20 U/L (5-40); CALCIUM 9.3 mg/dL (8.6-10.2); CARBON DIOXIDE 26 mEQ/L (20-30); CHLORIDE 102 mEQ/L (98-107); CREATININE 1.2 mg/dL (0.7-1.2); GLOMERULAR FILTRATION RATE > 60 mL/min (>60); HEMOLYSIS 3; POTASSIUM 3.7 mEQ/L (3.4-4.9); SODIUM 143 mEQ/L (135-145); TOTAL PROTEIN 6.8 g/dL (6.6-8.7)
[2016-09-03] MEDS: Lisinopril 20mg tab ORAL SCH ×2 (09:17→21:39)
[2016-09-03] MEDS: Carvedilol 6.25mg Tab ORAL SCH ×2 (09:17→21:35)
[2016-09-03] MEDS: Spironolactone 25mg tab ORAL SCH (09:17)
[2016-09-03] MEDS: Heparin 5000 units/ml inj SUBQ SCH ×2 (09:20→21:00)
[2016-09-03 11:14] VITALS: BP 100/60
--- NOTE | 2016-09-03 12:00 | Diagnostic Imaging Report ---
Indication: DYSPNEA Technique: One view of the chest Comparison: 09/02/2016 Findings: The heart is enlarged. Minimal interstitial congestion persists, unchanged. No definite effusions. No significant change Impression: Unchanged, over one day, findings as above.
--- NOTE | 2016-09-03 14:59 | Pulmonology Progress Note ---
Assessment/Plan Problems: (1) Severe systolic congestive heart failure (2) Asthma exacerbation in COPD (3) Cocaine abuse (4) CHF exacerbation Assessment/Plan continue diuretics check electrolytes pt want s to go home Subjective ROS Limited/Unobtainable: No Interval Events: less short of breath Allergies: Coded Allergies: No Known Allergies (Unverified , 09/20/15) Objective Last 24 Hour Vital Signs Date Time Temp Pulse Resp B/P Pulse Ox O2 Delivery O2 Flow Rate FiO2 09/03/16 11:46 75 09/03/16 11:14 97.6 75 20 100/60 95 Room Air 09/03/16 09:52 Room Air 09/03/16 09:52 73 20 Room Air 21 09/03/16 09:52 100 Room Air 21 09/03/16 09:17 78 122/78 09/03/16 09:17 122/78 09/03/16 08:08 73 09/03/16 07:38 97.1 78 20 122/78 92 Room Air 09/03/16 04:00 97.7 75 20 112/75 96 Room Air 09/03/16 04:00 73 09/03/16 00:00 97.3 87 20 127/80 95 Room Air 09/03/16 00:00 80 09/02/16 21:24 84 121/86 09/02/16 21:24 121/86 09/02/16 20:00 97.5 84 21 121/86 99 Room Air 09/02/16 18:54 78 22 100 Room Air 09/02/16 18:52 Room Air 09/02/16 18:52 78 22 Room Air 09/02/16 18:52 100 Room Air 21 09/02/16 16:00 97.0 81 19 102/67 90 Nasal Cannula 2.0 Intake and Output 09/02/16 09/03/16 19:00 07:00 Intake Total 480 ml 260 ml Output Total 950 ml 1400 ml Balance -470 ml -1140 ml Intake Oral 480 ml 260 ml Output Urine Total 950 ml 1400 ml # Voids 1 # Bowel Movements 2 General Appearance: WD/WN HEENT: normocephalic, atraumatic Respiratory/Chest: chest wall non-tender, lungs clear Cardiovascular: normal peripheral pulses, regularly irregular Abdomen: normal bowel sounds Extremities: no cyanosis Microbiology Date/Time Source Procedure Growth Status 08/31/16 23:30 Blood Blood Culture - Preliminary NO GROWTH AFTER 48 HOURS Resulted 08/31/16 23:30 Blood Blood Culture - Preliminary NO GROWTH AFTER 48 HOURS Resulted 09/01/16 01:00 Nasal Nares MRSA Culture - Final NO METHICILLIN RESISTANT STAPH AUREUS... Complete 09/01/16 01:00 Rectum VRE Culture - Final NO VANCOMYCIN RESISTANT ENTEROCOCCUS ... Complete Laboratory Tests 09/03/16 06:49: White Blood Count 5.0, Red Blood Count 4.35L, Hemoglobin 12.5L, Hematocrit 40.3L , Mean Corpuscular Volume 93, Mean Corpuscular Hemoglobin 28.8, Mean Corpuscular Hemoglobin Concent 31.1L, Red Cell Distribution Width 16.2H, Platelet Count 233, Mean Platelet Volume 8.6, Neutrophils (%) (Auto) 55.0, Lymphocytes (%) (Auto) 28.3, Monocytes (%) (Auto) 13.2H, Eosinophils (%) (Auto) 2.1, Basophils (%) (Auto) 1.5, Sodium Level 143, Potassium Level 3.7, Chloride Level 102, Carbon Dioxide Level 26, Anion Gap 15, Blood Urea Nitrogen 27H, Creatinine 1.2, Estimat Glomerular Filtration Rate > 60, Glucose Level 183#H, Calcium Level 9.3, Total Bilirubin 2.0H, Direct Bilirubin 1.0H, Aspartate Amino Transf (AST/SGOT) 20, Alanine Aminotransferase (ALT/SGPT) 9, Alkaline Phosphatase 200H, Troponin I < 0.30, Pro-B-Type Natriuretic Peptide 1116H, Total Protein 6.8, Albumin 3.1L, Globulin 3.7, Albumin/Globulin Ratio 0.8L Current Medications Medications (Trade) Dose Ordered Sig/Morteza Route PRN Reason Start Time Stop Time Status Last Admin Dose Admin Acetaminophen (Tylenol) 650 mg Q4H PRN ORAL Fever 09/01/16 04:45 10/01/16 04:44 Acetaminophen/ Hydrocodone Bitart (Camilla 10/325) 1 ea Q6HR PRN ORAL For Pain 09/03/16 01:15 09/10/16 01:14 09/03/16 01:41 Albuterol/ Ipratropium (DuoNeb 0.5-3(2.5)mg/3ml) 3 ml EVERY 4 HOURS PRN HHN Shortness of Breath 09/01/16 04:45 09/06/16 04:44 09/02/16 18:51 Carvedilol (Coreg) 6.25 mg EVERY 12 HOURS ORAL 09/01/16 16:00 10/01/16 15:59 09/03/16 09:17 Dextrose (Dextrose 50%) STAT PRN IV Hypoglycemia 09/01/16 04:45 10/01/16 04:44 Escitalopram Oxalate (Lexapro) 10 mg DAILY ORAL 09/02/16 09:00 10/02/16 08:59 09/03/16 09:17 Furosemide (Lasix) 40 mg EVERY 8 HOURS IV 09/01/16 06:00 10/01/16 05:59 09/03/16 13:20 Heparin Sodium (Porcine) (Heparin 5000 units/ml) 5,000 units EVERY 12 HOURS SUBQ 09/01/16 09:00 10/01/16 08:59 09/03/16 09:20 Insulin Aspart (NovoLOG) BEFORE MEALS AND HS SUBQ 09/01/16 06:30 10/01/16 06:29 09/03/16 12:43 Levofloxacin (Levaquin) 500 mg Q24H ORAL 09/02/16 21:00 09/09/16 20:59 09/02/16 21:23 Lisinopril (Prinivil) 20 mg Q12HR ORAL 09/01/16 16:00 10/01/16 15:59 09/03/16 09:17 Ondansetron HCl (Zofran) 4 mg Q6H PRN IVP Nausea & Vomiting 09/01/16 04:45 10/01/16 04:44 Polyethylene Glycol (Miralax) 17 gm DAILYPRN PRN ORAL Constipation 09/01/16 04:45 10/01/16 04:44 Spironolactone (Aldactone) 12.5 mg DAILY ORAL 09/01/16 16:00 10/01/16 15:59 09/03/16 09:17 Temazepam (Restoril) 15 mg HSPRN PRN ORAL Insomnia 09/01/16 04:45 09/08/16 04:44 09/01/16 21:22 KENY JIMÉNEZ Sep 03, 2016 14:59
--- NOTE | 2016-09-03 17:25 | Cardiology Progress Note ---
Assessment/Plan Assessment/Plan 1. Chronic congestive heart failure. 2. Possible depression. 3. Chronic obstructive pulmonary disease. 4. Cardiomyopathy. 5. History of cocaine abuse 6. Mitral regurgitation contienu with diuretic ok to po if dcd on acei and diuretic adn bb will increase bb soon on antidepressants Subjective Cardiovascular: Denies: chest pain, lightheadedness, palpitations Respiratory: Denies: shortness of breath Gastrointestinal/Abdominal: Denies: abdominal pain Genitourinary: Denies: burning Objective Last 24 Hour Vital Signs Date Time Temp Pulse Resp B/P Pulse Ox O2 Delivery O2 Flow Rate FiO2 09/03/16 11:46 75 09/03/16 11:14 97.6 75 20 100/60 95 Room Air 09/03/16 09:52 Room Air 09/03/16 09:52 73 20 Room Air 09/03/16 09:52 100 Room Air 21 09/03/16 09:17 78 122/78 09/03/16 09:17 122/78 09/03/16 08:08 73 09/03/16 07:38 97.1 78 20 122/78 92 Room Air 09/03/16 04:00 97.7 75 20 112/75 96 Room Air 09/03/16 04:00 73 09/03/16 00:00 97.3 87 20 127/80 95 Room Air 09/03/16 00:00 80 09/02/16 21:24 84 121/86 09/02/16 21:24 121/86 09/02/16 20:00 97.5 84 21 121/86 99 Room Air 09/02/16 18:54 78 22 100 Room Air 09/02/16 18:52 Room Air 09/02/16 18:52 78 22 Room Air 09/02/16 18:52 100 Room Air 21 General Appearance: alert Neck: supple Cardiovascular: normal rate, regular rhythm Respiratory/Chest: lungs clear Abdomen: non tender, soft Extremities: moderate edema Intake and Output 09/02/16 09/03/16 19:00 07:00 Intake Total 480 ml 260 ml Output Total 950 ml 1400 ml Balance -470 ml -1140 ml Intake Oral 480 ml 260 ml Output Urine Total 950 ml 1400 ml # Voids 1 # Bowel Movements 2 Laboratory Tests Test 09/03/16 06:49 White Blood Count 5.0 K/UL (4.8-10.8) Red Blood Count 4.35 M/UL (4.70-6.10) L Hemoglobin 12.5 G/DL (14.2-18.0) L Hematocrit 40.3 % (42.0-52.0) L Mean Corpuscular Volume 93 FL (80-99) Mean Corpuscular Hemoglobin 28.8 PG (27.0-31.0) Mean Corpuscular Hemoglobin Concent 31.1 G/DL (32.0-36.0) L Red Cell Distribution Width 16.2 % (11.6-14.8) H Platelet Count 233 K/UL (150-450) Mean Platelet Volume 8.6 FL (6.5-10.1) Neutrophils (%) (Auto) 55.0 % (45.0-75.0) Lymphocytes (%) (Auto) 28.3 % (20.0-45.0) Monocytes (%) (Auto) 13.2 % (1.0-10.0) H Eosinophils (%) (Auto) 2.1 % (0.0-3.0) Basophils (%) (Auto) 1.5 % (0.0-2.0) Sodium Level 143 mEQ/L (135-145) Potassium Level 3.7 mEQ/L (3.4-4.9) Chloride Level 102 mEQ/L (98-107) Carbon Dioxide Level 26 mEQ/L (20-30) Anion Gap 15 (5-15) Blood Urea Nitrogen 27 mg/dL (7-23) H Creatinine 1.2 mg/dL (0.7-1.2) Estimat Glomerular Filtration Rate > 60 mL/min (>60) Glucose Level 183 mg/dL (74-106) #H Calcium Level 9.3 mg/dL (8.6-10.2) Total Bilirubin 2.0 mg/dL (0.0-1.2) H Direct Bilirubin 1.0 mg/dL (0.1-0.3) H Aspartate Amino Transf (AST/SGOT) 20 U/L (5-40) Alanine Aminotransferase (ALT/SGPT) 9 U/L (3-41) Alkaline Phosphatase 200 U/L (40-129) H Troponin I < 0.30 ng/mL (<=0.30) Pro-B-Type Natriuretic Peptide 1116 pg/mL (0-125) H Total Protein 6.8 g/dL (6.6-8.7) Albumin 3.1 g/dL (3.5-5.2) L Globulin 3.7 g/dL Albumin/Globulin Ratio 0.8 (1.0-2.7) L Microbiology Date/Time Source Procedure Growth Status 08/31/16 23:30 Blood Blood Culture - Preliminary NO GROWTH AFTER 48 HOURS Resulted 08/31/16 23:30 Blood Blood Culture - Preliminary NO GROWTH AFTER 48 HOURS Resulted 09/01/16 01:00 Nasal Nares MRSA Culture - Final NO METHICILLIN RESISTANT STAPH AUREUS... Complete 09/01/16 01:00 Rectum VRE Culture - Final NO VANCOMYCIN RESISTANT ENTEROCOCCUS ... Complete JULIOCESAR GONSALEZ Sep 03, 2016 17:25
[2016-09-03 20:00] VITALS: BP 130/85
[2016-09-03 21:39] VITALS: BP 138/90
[2016-09-03] MEDS: Levofloxacin 500mg tab ORAL SCH (21:42)
--- NOTE | 2016-09-04 10:28 | Diagnostic Imaging Report ---
APPROVED REPORT CPT Code: 92873 Present Symptoms Lower Extremity Edema: Bilateral BILATERAL: Imaging reveals a patent deep venous system bilaterally. There is no evidence of thrombus within the femoral, popliteal or tibial segments. The greater saphenous veins are also within normal limits. Doppler indicates normal spontaneous flow within these segments.
--- NOTE | 2016-09-05 10:35 | Discharge Summary ---
Discharge Summary Hospital Course Date of Admission Aug 31, 2016 at 23:26 Date of Discharge Sep 03, 2016 at 23:15 Admitting Diagnosis shortness of breath, congestive heart failure SILVANA Burton Mcdaniel is a 66 year old male who was admitted on Aug 31, 2016 at 23:26 for Shortness Of Breath,Conjestive Heart Failure Hospital Course [id number] Discharge Discharge Disposition Patient was discharged to Home (01) Discharge Diagnoses: Brittanie Wing NP Sep 05, 2016 10:35
--- NOTE | 2016-09-06 00:49 | Discharge Summary 2 SIG ---
DATE OF ADMISSION: 08/31/2016 DATE OF DISCHARGE: 09/03/2016 DIRECTOR GENERAL: Nolberto Aden M.D. BRIEF HOSPITAL COURSE: The patient is a 66-year-old male with history of congestive heart failure, chronic obstructive pulmonary disease, cardiomyopathy, and diabetes, who presented to ED complaining of cough and shortness of breath. The patient had multiple admissions to the hospital for treatment of congestive heart failure and declined to be discharged to a correction facility. He was noted to have persistent dry cough with no wheezing or hemoptysis and had progressive and worsening shortness of breath with bilateral leg swelling. On evaluation at ED, troponin was negative. He presented with elevated lactic acid and elevated BNP and bilirubin. Chest x-ray showed pulmonary congestion with possible infiltrates. He was admitted for acute congestive heart failure exacerbation and possible chronic obstructive pulmonary disease exacerbation. He was given breathing treatments and was started on empiric antibiotics. Venous duplex of lower extremity was negative. He was seen by Dr. Aden, Cardiology consult. Echocardiogram done on 08/29/2016 showed ejection fraction of 20% to 25% with severe mitral regurgitation and mild aortic regurgitation. Pulmonary artery systolic pressure of 42. EKG showed inferior infarct and T-wave inversions in leads 1 and AVL as well as V6. Comparison of previous EKG does not appear to be significantly changed. He was given diuretics and was given SINDI inhibitors and beta blockers. He was also given antidepressants and Lexapro for depression. Troponins were negative. The BNP down trended. The patient was eventually discharged home. FINAL DIAGNOSES: 1. Acute on chronic systolic and diastolic congestive heart failure. 2. Chronic obstructive pulmonary disease exacerbation. 3. Depression. 4. Cardiomyopathy. 5. Cocaine abuse. 6. Mitral regurgitation. Ирина Thurston M.D. I have been assigned to dictate discharge summary on this account and I was not involved in the patient's management. Brittanie Wing N.P. DR: CHAUNCEY JOB#: [id number] CC:
== END 2016-09-03 23:15 | disposition home or self-care (01) | DRG 194 ==
LOC: EMR 23:17 → 2E 23:26 → EDBEDREQ 09-01 01:04 → 2E 09-01 02:56
DX: I50.43 Acute on chronic combined systolic (congestive) and diastolic (congestive) heart failure (principal); I27.2 Other secondary pulmonary hypertension; I42.9 Cardiomyopathy, unspecified; I10 Essential (primary) hypertension; J44.1 Chronic obstructive pulmonary disease with (acute) exacerbation; F32.9 Major depressive disorder, single episode, unspecified; E11.9 Type 2 diabetes mellitus without complications; F14.10 Cocaine abuse, uncomplicated; I08.0 Rheumatic disorders of both mitral and aortic valves; Z79.4 Long term (current) use of insulin
CPT/HCPCS: 36415; 71010; 80048; 80053; 80069; 81003; 82248; 82550; 82553; 82962; 83605; 83880; 84484; 85025; 87040; 87081; 93005; 93970; 94640; 94664; 94760; J7620

== ENCOUNTER 2016-12-18 20:44 | Emergency (ER) | payer MEDICAID ==
[~2016-12-18] VITALS: Ht 185.4 cm; Wt 90.3 kg
[~2016-12-18 20:44] MED LIST changes: +ATORVASTATIN CA40 MG ORAL; +FUROSEMIDE80 M1 ORAL; +METOPROLOL SUCC25 MG ORAL
--- NOTE | 2016-12-18 21:11 | Emergency Room Report ---
History of Present Illness General Chief Complaint: Dyspnea/Respdistress Source: Patient, Medical Record Present Illness HPI Is a 66-year-old male with a history of CHF, ejection fraction 20-25% on echocardiogram done August 2016. He is noncompliant with medication. Doesn't know what medication he supposed to be on. Also history of asthma and is out of his albuterol inhaler. Presents with chief complaint of shortness of breath. Onset for last 2 days. Denies any fever or chills. Worse with exertion. Worse lying flat. No chest pain. No nausea no vomiting. Cocaine use 2 days ago. No diaphoresis. Allergies: Coded Allergies: No Known Allergies (Unverified , 09/20/15) Patient History Past Medical History: see triage record, old chart reviewed, HTN, CHF Past Surgical History: other Pertinent Family History: none Social History: Reports: alcohol use, drug use, Denies: smoking Immunizations: other Reviewed Nursing Documentation: PMH: Agreed, PSxH: Agreed Nursing Documentation-PMH Past Medical History: No History, Except For Hx Cardiac Problems: Yes Hx Hypertension: Yes Hx Pacemaker: No Hx Asthma: Yes Hx COPD: Yes Hx Diabetes: Yes Hx Cancer: No Hx Gastrointestinal Problems: No Hx Dialysis: No Hx Neurological Problems: No Hx Cerebrovascular Accident: No Hx Transient Ischemic Attacks: No Hx Seizures: No Review of Systems Eye: Denies: blurred vision, eye pain ENT: Denies: ear pain, nose congestion, throat swelling Respiratory: Reports: cough, shortness of breath Cardiovascular: Denies: chest pain, palpitations Gastrointestinal: Denies: abdominal pain, diarrhea, nausea, vomiting Musculoskeletal: Denies: back pain, joint pain Skin: Denies: rash Neurological: Denies: headache, numbness Endocrine: Denies: increased thirst, increased urine Hematologic/Lymphatic: Denies: easy bruising All Other Systems: negative except mentioned in HPI Physical Exam Vital Signs Date Time Temp Pulse Resp B/P Pulse Ox O2 Delivery O2 Flow Rate FiO2 12/18/16 20:49 98.4 97 18 151/125 97 Room Air 12/18/16 21:01 99 vitals with hypertension Sp02 EP Interpretation: reviewed, normal General Appearance: well appearing, no apparent distress, alert Head: normocephalic, atraumatic Eyes: bilateral eye EOMI, bilateral eye PERRL ENT: hearing grossly normal, normal pharynx Neck: full range of motion, supple, no meningismus Respiratory: chest non-tender, rales, rhonchi Cardiovascular #1: regular rate, rhythm, no murmur Gastrointestinal: normal bowel sounds, non tender, no mass, no organomegaly, no bruit, non-distended Musculoskeletal: back normal, gait/station normal, normal range of motion Psychiatric: mood/affect normal Skin: warm/dry Medical Decision Making Diagnostic Impression: Primary Impression: CHF exacerbation Qualified Codes: I50.9 - Heart failure, unspecified Additional Impressions: Cocaine abuse Hypertension, essential ER Course Patient presents with CHF secondary to noncompliance. He diuresed well here. Blood pressure better. He does not want to emitted to the hospital. Wants to leave. We'll discharge home. No evidence of ACS, PE, dissection to name a few. Lab Results Impression labs with elevated BNP EKG Diagnostic Results EKG Time: 23:14 Rate: normal Rhythm: NSR ST Segments: no acute changes Rhythm Strip Diag. Results Rhythm Strip Time: 23:14 EP Interpretation: yes Rate: 88 Rhythm: NSR Chest X-Ray Diagnostic Results Chest X-Ray Diagnostic Results : Chest X-Ray Ordered: Yes # of Views/Limited/Complete: 1 View Indication: Shortness of Breath EP Interpretation: Yes Interpretation: no consolidation, no pneumothorax, other - CM with vasc congestion Interpreting ER Provider: electronically signed by Filiberto Meng MD Last Vital Signs Date Time Temp Pulse Resp B/P Pulse Ox O2 Delivery O2 Flow Rate FiO2 12/18/16 21:01 98 18 Room Air 99 12/18/16 20:49 98.4 151/125 97 Status: improved Disposition: HOME, SELF-CARE Condition: Stable Scripts Furosemide* (LASIX*) 20 Mg Tablet 20 MG ORAL DAILY, #30 TAB Prov: FILIBERTO MENG M.D. 12/18/16 Albuterol Sulfate* (ALBUTEROL SULFATE MDI*) 8.5 Gm Hfa.aer.ad 2 PUFF INH Q4H Y for cough/wheezing, #1 EA 0 Refills Prov: FILIBERTO MENG M.D. 12/18/16 Additional Instructions: [facility] Stop using drugs. Return if worse. FILIBERTO MENG M.D. Dec 18, 2016 21:11
[2016-12-18] MEDS ORDERED: Albuterol ud Inhalation HHN ONE (21:15)
[2016-12-18] MEDS ORDERED: Nitroglycerin Subl 0.4mg tab (Bottle Of 25) SL ONE (21:15)
[2016-12-18] MEDS ORDERED: Aspirin Baby 81mg ORAL ONE (21:15)
[2016-12-18] MEDS ORDERED: Enalaprilat 2.5mg/2ml Inj IV ONE (21:15)
[2016-12-18 22:04] VITALS: BP 157/97
[2016-12-18 22:12] LABS: BASOPHILS % (AUTO) 1.9 % (0.0-2.0); EOSINOPHILS % (AUTO) 9.3 % (0.0-3.0); LYMPHOCYTES % (AUTO) 18.2 % (20.0-45.0); MEAN CORPUSCULAR HEMOGLOBIN 30.5 PG (27.0-31.0); MEAN CORPUSCULAR VOLUME 90 FL (80-99); MEAN PLATELET VOLUME 6.6 FL (6.5-10.1); MONOCYTES % (AUTO) 8.5 % (1.0-10.0); NEUTROPHILS % (AUTO) 62.1 % (45.0-75.0); PLATELET COUNT 250 K/UL (150-450); RED BLOOD COUNT 3.85 M/UL (4.70-6.10); RED CELL DISTRIBUTION WIDTH 14.8 % (11.6-14.8); WHITE BLOOD COUNT 7.4 K/UL (4.8-10.8)
[2016-12-18 22:34] LABS: TROPONIN I < 0.30 ng/mL (<=0.30)
[2016-12-18 22:37] LABS: ALANINE AMINOTRANSFERASE 13 U/L (3-41); ANION GAP 10 (5-15); ASPARTATE AMINO TRANSFERASE 21 U/L (5-40); CALCIUM 9.4 mg/dL (8.6-10.2); CARBON DIOXIDE 25 mEQ/L (20-30); CHLORIDE 101 mEQ/L (98-107); CREATININE 1.4 mg/dL (0.7-1.2); GLOMERULAR FILTRATION RATE > 60 mL/min (>60); HEMOLYSIS 16; POTASSIUM 4.4 mEQ/L (3.4-4.9); SODIUM 136 mEQ/L (135-145); TOTAL PROTEIN 7.2 g/dL (6.6-8.7)
[2016-12-18 22:48] LABS: CKMB 3.4 ng/mL (< 6.7)
[2016-12-18] MEDS ORDERED: ALBUTEROL SULF8.5 GM INH (23:15)
[2016-12-18] MEDS ORDERED: FUROSEMIDE20 M1 ORAL (23:15)
[2016-12-18 23:32] VITALS: BP 157/97
--- NOTE | 2016-12-19 10:18 | Diagnostic Imaging Report ---
Indication: SOB Technique: One view of the chest Comparison: 09/13/16 Findings: There is ration on the current exam The heart is enlarged. Is equivocal minimal central bronchial wall thickening. Lungs and pleural spaces are otherwise clear. Impression: Cardiomegaly No definite acute process
--- NOTE | 2016-12-19 12:29 | Cardiology Report ---
APPROVED REPORT EKG Measurement Heart [id number] Sinus rhythm with occasional premature ventricular complexes and premature atrial complexes Left axis deviation Minimal voltage criteria for LVH, may be normal variant T wave abnormality, consider lateral ischemia Prolonged QT Abnormal ECG
== END 2016-12-18 23:32 | disposition home or self-care (01) ==
LOC: EMR 21:39
DX: I50.9 Heart failure, unspecified (principal); F14.10 Cocaine abuse, uncomplicated; I10 Essential (primary) hypertension; J44.9 Chronic obstructive pulmonary disease, unspecified; E11.9 Type 2 diabetes mellitus without complications
CPT/HCPCS: 36415; 71010; 80053; 82550; 82553; 83880; 84484; 85025; 93005; 94640; 94664; 96374; 96375; 99284; J1940